=== PATIENT | male | born 1990 | race Caucasian/White ===

== ENCOUNTER 2021-02-05 11:17 | Outpatient (REF) | payer OTHER, SELFPAY ==
[2021-02-05 14:54] LABS: Alanine Aminotransferase 34 U/L (0-40); Albumin Level 4.5 g/dL (3.5-5.0); Alkaline Phosphatase 56 U/L (39-117); Anion Gap 12 (12-20); Aspartate Amino Transferase 27 U/L (5-37); Bilirubin Total 0.5 mg/dL (0.0-1.0); Blood Urea Nitrogen 12 mg/dL (9-16); Calcium 9.6 mg/dL (8.4-10.2); Carbon Dioxide 27 mmol/L (22-29); Chloride 105 mmol/L (96-108); Cholesterol 157 mg/dL; Estimated Glomerular Filt Rate > 60; Glucose Fasting 88 mg/dL (60-99); HDL Cholesterol 55 mg/dL; LDL Cholesterol Calculated 89 mg/dl; Potassium 3.7 mmol/L (3.3-5.1); Sodium 140 mmol/L (135-145); Total Protein 7.2 g/dL (6.5-8.0); Triglycerides 68 mg/dL
[2021-02-05 15:16] LABS: TSH reflex Free T4 0.91 uIU/mL (0.32-4.0)
== END 2021-02-05 11:18 | disposition home or self-care (01) ==
LOC: HO.HMGCLDS 11:17
PROVIDERS: PCP Nurse Practitioner Family; Visit Provider Nurse Practitioner Family
DX: Z00.00 Encounter for general adult medical examination without abnormal findings (principal)
CPT/HCPCS: 36415; 80053; 80061; 84443

== ENCOUNTER 2021-11-10 14:26 | Outpatient (REF) | payer OTHER, SELFPAY ==
[2021-11-10 17:13] LABS: Hematocrit 46.2 % (42.0-52.0); Mean Corpuscular HGB Conc 32.5 g/dl (31.0-36.0); Mean Corpuscular Hemoglobin 27.6 pg (27.0-33.0); Mean Corpuscular Volume 85.1 fL (80.0-98.0); Mean Platelet Volume 10.2 fL (9.4-12.4); Platelet Count 282 X10*3/uL (160-400); Red Blood Count 5.43 X10*6/uL (4.60-5.80); Red Cell Distribution Width 13.1 % (11.0-16.0); White Blood Count 3.8 X10*3/uL (4.8-10.8)
[2021-11-10 17:37] LABS: C Reactive Protein 0.04 mg/dL (< or = 0.50)
[2021-11-10 18:00] LABS: Erythrocyte Sedimentation Rate 1 MM/HR (0-15)
== END 2021-11-10 14:27 | disposition home or self-care (01) ==
LOC: HO.LAB 14:26
PROVIDERS: PCP Nurse Practitioner Family; Referring Provider Nurse Practitioner Family; Visit Provider Internal Medicine Cardiovascular Disease
DX: R07.89 Other chest pain (principal); R94.31 Abnormal electrocardiogram [ECG] [EKG]
CPT/HCPCS: 36415; 85027; 85652; 86140; 93005; 99202

== ENCOUNTER → 2021-11-18 09:06 | Outpatient (REF) | payer OTHER, SELFPAY ==
--- NOTE | ~2021-11-18 | NM_ITS ---
Exercise Myocardial perfusion study Indication: Chest pain to evaluate for myocardial ischemia Technique: The patient was brought in for an exercise perfusion study on 11/18/2021. Patient performed exercise as per Alexei protocol and was injected 25 mCi of sestamibi was given intravenously one target HR was achieved. Images were obtained using the SPECT gamma camera interlaced with the gating device. Images were obtained in supine position. Resting perfusion study was performed on 11/19/2021. Patient was administered 25 mCi of sestamibi intravenously at rest. Images were then obtained in supine position. Images obtained with and without CT attenuation. Total DLP 75 mGy-cm. Images were processed with the software and compared side to side in short axis, horizontal long axis and vertical long axis views. Findings: The stress perfusion study showed both non attenuated attenuated corrected images show normal uptake of the cardiac. The gated study shows normal LV systolic function with calculated LVEF of 64%. LV cavity is normal in size. The gated study shows normal systolic wall thickening and contraction of all segments. There is no transient ischemic dilation. Resting study shows non attenuated images show normal uptake of radiotracer in all segments of LV myocardium. Gating at rest reveals normal systolic wall motion with visually estimated ejection fraction at greater than 60 %. The findings are consistent with normal myocardial perfusion. NM/NM cardiolite stress test Impression: 1. Normal myocardial perfusion 2. Gated LVEF is 60 3. Transient ischemic dilatation not present Stress EKG is equivocal for ischemia
--- NOTE | 2021-11-18 09:09 | CA_ITS ---
Acquisition Time: 2021-11-18 10:11:36 Total Exercise Time: 00:12:01 Test Indications: Chest Pain Medications: IRBASARTAN Protocol: RIKKI Max HR: 184 BPM 97% of Pred: 189 BPM Max BP: 160/098 mmHG Max Work Load: 13.4 METS Exercise stress test with exercise 12 min 1 sec of Rikki protocol, with 1/10 left chest pressure, like a bubble in my chest , without arrythmia, with normotensive response to exercise, with baseline EKG showing T wave inversions inferiorly and V4-V6 - then at peak exercise there is [address] depression leads III, AVF and 0.5mm depression in V6 which improves quickly in recovery and shows upright T waves. Then at 6 min recovery there are T wave inversions again noted inferiorly, V4-V6 which continue until test ended.: nondiagnostic for ischemia due to baseline abnormality. His chest pressure remained at 1/10 during recovery. Nuclear images pending. Test reviewed with Dr Blair Referred By: Puneet Parker Overread By: DAVID BENÍTEZ
== END ==
LOC: HO.CARD 09:06
PROVIDERS: PCP Nurse Practitioner Family; Visit Provider Internal Medicine Cardiovascular Disease
DX: R07.89 Other chest pain (principal); R94.31 Abnormal electrocardiogram [ECG] [EKG]
CPT/HCPCS: 78452; 93017; A9500

== ENCOUNTER → 2021-11-26 14:49 | Outpatient (REF) | payer OTHER, SELFPAY ==
--- NOTE | 2021-11-26 14:52 | CA_ITS ---
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 The visually estimated ejection fraction is between 55-60%. Diastolic function is normal for age. Right Ventricle Normal right ventricular cavity size and systolic function. Atria Both atria are normal in size. Color Doppler suggestive of presence of PFO. Aortic Valve Normal aortic valve structure and function. There is no aortic valve stenosis. There is no aortic valve regurgitation. Mitral Valve Normal mitral valve structure and function. There is trace mitral valve regurgitation. There is no mitral valve stenosis. Pulmonic Valve The pulmonic valve was not well visualized. Tricuspid Valve Likely normal tricuspid valve structure and function. There is trace tricuspid valve regurgitation. The right ventricular systolic pressure is normal. The right ventricular systolic pressure is 16 mmHg. Normal right atrial pressure. There is no evidence of pulmonary hypertension. Great Vessels All visible segments of the aorta are normal in size. The pulmonary artery was not well visualized. Venous The inferior vena cava is normal in size and collapses greater than 50% with inspiration. Pericardium/Pleural There is no evidence of pericardial effusion. Prior Study Comparison No prior study available for comparison. Recommendations, Care & Conclusions Recommend contrast study to evaluate intracardiac shunting. Measurements 2D Linear Measurements IVSd: 0.90 0.6-0.9/0.6-1.0 cm LVIDd: 4.96 3.9-5.3/4.2-5.9 cm LVIDd Index: 2.49 2.4-3.2/2.2-3.1 cm/m2 LVIDs: 2.77 2.0-3.6 cm LVPWd: 1.07 0.7-1.1 cm LA Diam: 3.10 2.7-3.8/3.0-4.0 cm LAIDs Index: 1.56 1.5-2.3 cm/m2 LV Mass: 219.82 67-162/88-224 g LV Mass Index: 110.46 43-95/49-115 g/m2 LVOT Diam: 2.20 3.0+(-)1.3 cm 2D Systolic Function EF 4C: 53.00 >55% EF 2C: 66.70 >55% EF BiP: 57.80 >55% Mitral Valve MV Pk E: 0.55 MV PK A: 0.42 MV Decel Time: 201.00 E/A: 1.30 E'Lateral: 10.10 E'Medial: 6.96 E/E' Med: 7.80 E/E' Lat: 5.40 PHT: 59.00 MVA PHT: 3.73 Decel [place]helps: 2.70 Aortic Valve AoV Pk Malachi: 1.31 AoV Mn Malachi: 0.95 AoV VTI: 0.25 AoV Pk Grad: 7.00 Aov Mn Grad: 4.00 ARCHANA Cont.VTI: 2.70 LVOT LVOT Pk Malachi: 0.90 LVOT Mn Malachi: 0.56 LVOT VTI: 0.18 LVOT Pk Grad: 3.00 LVOT Mn Grad: 2.00 LVOT Diam: 2.20 LVOT Area: 3.80 Diastolic Function MV Pk E: 0.55 MV Pk A: 0.42 E/A: 1.30 E'Medial: 6.96 E/E' Med: 7.80 E' Laterial: 10.10 E/E' Lat: 5.40 Right Ventricle TAPSE (mm): 21.30 TVS' Malachi: 11.30 Tricuspid Valve TR Pk Malachi: 1.83 TR Pk Grad: 13.00 RA Press: 3.00 RVSP: 16.00 Great Vessels Aorta Sinus of Valsalva: 3.72 2.0-3.[address] Ridge: 3.14 1.7-3.4 cm Ao Asc: 3.20 2.1-3.4 cm Ao Arch: 3.30 Pulmonary Valve PV Pk Malachi: 0.96 Peak PV Grad: 4.00 Updated in Other Vendor System with Status of Final Puneet Parker MD electronically signed on 11/27/2021 11:19:26 AM with status of Final
== END ==
LOC: HO.CARD 14:49
PROVIDERS: PCP Nurse Practitioner Family; Visit Provider Internal Medicine Cardiovascular Disease
DX: R94.31 Abnormal electrocardiogram [ECG] [EKG] (principal); R07.89 Other chest pain; I10 Essential (primary) hypertension
CPT/HCPCS: 93306

== ENCOUNTER → 2021-12-08 14:05 | Outpatient (BNVA) | payer OTHER, SELFPAY | PROVIDERS: PCP Nurse Practitioner Family; Referring Provider Nurse Practitioner Family; Visit Provider Nurse Practitioner Family | DX: Z01.810 Encounter for preprocedural cardiovascular examination (principal); Q21.1 Atrial septal defect; R94.31 Abnormal electrocardiogram [ECG] [EKG]; R07.89 Other chest pain | CPT/HCPCS: 99212 ==

== ENCOUNTER 2022-11-23 11:03 | Outpatient (REF) | payer OTHER, SELFPAY ==
[2022-11-23 13:41] LABS: MANUAL DIFF FLAG NO
[2022-11-23 13:50] LABS: Basophils Percent Auto 0.7 % (0-2); Eosinophils Absolute Auto 0.4 X10*3/uL (0.0-0.4); Eosinophils Percent Auto 8.6 % (0-4); Hematocrit 45.4 % (42.0-52.0); Hemoglobin 15.1 g/dl (14.0-18.0); Imm Gran Abs Auto 0.01 X10*3/uL (0.00-0.03); Imm Gran Pct Auto 0.2 % (0.0-0.4); Lymphocytes Absolute Auto 1.7 X10*3/uL (1.2-4.9); Lymphocytes Percent Auto 40.7 % (20-40); Mean Corpuscular HGB Conc 33.3 g/dl (31.0-36.0); Mean Corpuscular Hemoglobin 27.7 pg (27.0-33.0); Mean Corpuscular Volume 83.3 fL (80.0-98.0); Mean Platelet Volume 10.5 fL (9.4-12.4); Monocytes Absolute Auto 0.3 X10*3/uL (0.1-1.2); Monocytes Percent Auto 6.7 % (2-11); Neutrophils Absolute Auto 1.7 x10*3/uL (2.0-8.3); Neutrophils Percent Auto 43.1 % (45-73); Platelet Count 286 X10*3/uL (160-400); Red Blood Count 5.45 X10*6/uL (4.60-5.80); White Blood Count 4.1 X10*3/uL (4.8-10.8)
[2022-11-23 14:01] LABS: Appearance Urine Clear; Color Urine Yellow; Glucose Urine UA Negative (Negative); Leukocyte Esterase Urine Negative (Negative); Nitrite Urine Negative (Negative); PH 6.5 (5.0-9.0); Specific Gravity - Urine >= 1.030 (1.005-1.025); Urine Blood Negative (Negative); Urine Ketones Trace mg/dL (Negative); Urine Protein Negative (Neg-Trace)
[2022-11-23 14:17] LABS: Alanine Aminotransferase 38 U/L (0-40); Albumin Level 4.5 g/dL (3.5-5.0); Alkaline Phosphatase 53 U/L (39-117); Anion Gap 10 (12-20); Aspartate Amino Transferase 32 U/L (5-37); Bilirubin Total 0.5 mg/dL (0.0-1.0); Blood Urea Nitrogen 12 mg/dL (9-16); Calcium 9.5 mg/dL (8.4-10.2); Carbon Dioxide 27 mmol/L (22-29); Chloride 105 mmol/L (96-108); Cholesterol 167 mg/dL; Estimated Glomerular Filt Rate > 60; Glucose Fasting 80 mg/dL (60-99); HDL Cholesterol 38 mg/dL; LDL Cholesterol Calculated 88 mg/dl; Potassium 4.1 mmol/L (3.3-5.1); Sodium 138 mmol/L (135-145); Total Protein 7.2 g/dL (6.5-8.0); Triglycerides 208 mg/dL
[2022-11-23 14:35] LABS: TSH reflex Free T4 1.67 uIU/mL (0.32-4.0)
== END 2022-11-23 11:04 | disposition home or self-care (01) ==
LOC: HO.HMGCLDS 11:03
PROVIDERS: PCP Nurse Practitioner Family; Visit Provider Nurse Practitioner Family
DX: Z00.00 Encounter for general adult medical examination without abnormal findings (principal)
CPT/HCPCS: 36415; 80053; 80061; 81003; 84443; 85025

== ENCOUNTER → 2022-12-15 12:24 | Outpatient (BNVA) | payer OTHER, SELFPAY | PROVIDERS: PCP Nurse Practitioner Family; Referring Provider Nurse Practitioner Family; Visit Provider Internal Medicine Cardiovascular Disease | DX: I10 Essential (primary) hypertension (principal); R07.89 Other chest pain; U07.0 Vaping-related disorder | CPT/HCPCS: 93005; 99212 ==

== ENCOUNTER → 2022-12-27 14:55 | Outpatient (REF) | payer OTHER, SELFPAY ==
--- NOTE | 2022-12-27 14:57 | CA_ITS ---
Transthoracic Echocardiogram Patient (Last, First, Middle): Brad Ozuna, Gender: Male Date of : 1990 Age: 32 Procedure Date: 12/27/2022 Procedure Type: Transthoracic Echocardiogram Location: OP Height: 182.88 cm Weight: 76.66 kg BSA: 1.98 m2 Heart Rate: bpm BP: 138 / 82 mmHg [facility]: TO Referring MD: Puneet Parker MD Marketing Director Assisted Living: Puneet Parker MD Symptoms: I10 - Essential (primary) hypertension Study Quality: Good ECG Rhythm: Sinus Conclusions: - 1. Normal LV ejection fraction of 60 65% with normal filling pattern 2. Normal cardiac valvular Dopplers 3. Normal RV systolic pressure 4. No gross pericardial effusion Findings Left Ventricle Normal left ventricular size, thickness, and systolic function. The visually estimated ejection fraction is between 60-65%. Spectral Doppler is indicative of a normal filling pattern. Right Ventricle Normal right ventricular cavity size and systolic function. Atria The left atrium is likely dilated. Interatrial shunt cannot be excluded. The right atrium is normal in size. Aortic Valve Normal aortic valve structure and function. There is no aortic valve stenosis. There is no aortic valve regurgitation. Mitral Valve Normal mitral valve structure and function. There is trace mitral valve regurgitation. There is no mitral valve stenosis. Pulmonic Valve The pulmonic valve is likely normal. There is trace to mild pulmonic valve regurgitation. Tricuspid Valve Normal tricuspid valve structure. There is trace tricuspid valve regurgitation. The right ventricular systolic pressure is normal. The right ventricular systolic pressure is 21 mmHg. Normal right atrial pressure. There is no evidence of pulmonary hypertension. Great Vessels All visible segments of the aorta are normal in size. The pulmonary artery was not well visualized. Venous The inferior vena cava is normal in size and collapses greater than 50% with inspiration. Pericardium/Pleural There is no evidence of pericardial effusion. Prior Study Comparison No significant change compared to prior study dated: 11/26/2021. Recommendations, Care & Conclusions Recommend contrast study to evaluate intracardiac shunting. Measurements 2D Linear Measurements IVSd: 1.19 0.6-0.9/0.6-1.0 cm LVIDd: 4.87 3.9-5.3/4.2-5.9 cm LVIDd Index: 2.46 2.4-3.2/2.2-3.1 cm/m2 LVIDs: 3.13 2.0-3.6 cm LVPWd: 0.95 0.7-1.1 cm LA Diam: 2.70 2.7-3.8/3.0-4.0 cm LAIDs Index: 1.36 1.5-2.3 cm/m2 LV Mass: 238.74 67-162/88-224 g LV Mass Index: 120.58 43-95/49-115 g/m2 LVOT Diam: 2.30 3.0+(-)1.3 cm 2D Systolic Function EF 4C: 55.70 >55% EF 2C: 64.10 >55% EF BiP: 60.00 >55% Mitral Valve MV Pk E: 0.50 MV PK A: 0.37 MV Decel Time: 167.00 E/A: 1.40 E'Lateral: 8.92 E'Medial: 6.96 E/E' Med: 7.10 E/E' Lat: 5.60 PHT: 49.00 MVA PHT: 4.49 Decel [place]: 2.97 Aortic Valve AoV Pk Malachi: 1.29 AoV Mn Malachi: 0.93 AoV VTI: 0.24 AoV Pk Grad: 7.00 Aov Mn Grad: 4.00 ARCHANA Cont.VTI: 3.18 LVOT LVOT Pk Malachi: 0.99 LVOT Mn Malachi: 0.63 LVOT VTI: 0.18 LVOT Pk Grad: 4.00 LVOT Mn Grad: 2.00 LVOT Diam: 2.30 LVOT Area: 4.15 Diastolic Function MV Pk E: 0.50 MV Pk A: 0.37 E/A: 1.40 E'Medial: 6.96 E/E' Med: 7.10 E' Laterial: 8.92 E/E' Lat: 5.60 Right Ventricle TAPSE (mm): 19.90 TVS' Malachi: 11.50 Tricuspid Valve TR Pk Malachi: 2.10 TR Pk Grad: 18.00 RA Press: 3.00 RVSP: 21.00 Great Vessels Aorta Sinus of Valsalva: 3.73 2.0-3.[address] Ridge: 3.08 1.7-3.4 cm Ao Asc: 3.40 2.1-3.4 cm Updated in Other Vendor System with Status of Final Puneet Parker MD electronically signed on 12/28/2022 2:50:57 PM with status of Final
== END ==
LOC: HO.CARD 14:55
PROVIDERS: PCP Nurse Practitioner Family; Visit Provider Internal Medicine Cardiovascular Disease
DX: I10 Essential (primary) hypertension (principal)
CPT/HCPCS: 93306

== ENCOUNTER 2023-01-12 08:45 | Outpatient (REF) | payer OTHER, SELFPAY ==
[2023-01-12 09:20] LABS: MANUAL DIFF FLAG NO
[2023-01-12 09:27] LABS: Basophils Percent Auto 0.4 % (0-2); Eosinophils Absolute Auto 0.4 X10*3/uL (0.0-0.4); Eosinophils Percent Auto 7.1 % (0-4); Hematocrit 50.2 % (42.0-52.0); Hemoglobin 16.5 g/dl (14.0-18.0); Imm Gran Abs Auto 0.02 X10*3/uL (0.00-0.03); Imm Gran Pct Auto 0.4 % (0.0-0.4); Lymphocytes Absolute Auto 1.5 X10*3/uL (1.2-4.9); Mean Corpuscular HGB Conc 32.9 g/dl (31.0-36.0); Mean Corpuscular Hemoglobin 28.1 pg (27.0-33.0); Mean Corpuscular Volume 85.5 fL (80.0-98.0); Mean Platelet Volume 9.6 fL (9.4-12.4); Monocytes Absolute Auto 0.4 X10*3/uL (0.1-1.2); Monocytes Percent Auto 7.1 % (2-11); Neutrophils Absolute Auto 3.3 x10*3/uL (2.0-8.3); Platelet Count 288 X10*3/uL (160-400); Red Blood Count 5.87 X10*6/uL (4.60-5.80); White Blood Count 5.6 X10*3/uL (4.8-10.8)
[2023-01-12 10:11] LABS: Anion Gap 13 (12-20); Blood Urea Nitrogen 11 mg/dL (9-16); Carbon Dioxide 25 mmol/L (22-29); Chloride 104 mmol/L (96-108); Estimated Glomerular Filt Rate > 60; Glucose Random 98 mg/dL (60-115); Potassium 4.3 mmol/L (3.3-5.1); Sodium 138 mmol/L (135-145)
== END 2023-01-12 08:46 | disposition home or self-care (01) ==
LOC: HO.LAB 08:45
PROVIDERS: PCP Nurse Practitioner Family; Referring Provider Nurse Practitioner Family; Visit Provider Internal Medicine Cardiovascular Disease
DX: D72.819 Decreased white blood cell count, unspecified (principal); I10 Essential (primary) hypertension
CPT/HCPCS: 36415; 80048; 85025

== ENCOUNTER 2023-04-06 10:38 | Outpatient (AMB) | payer OTHER, SELFPAY ==
[2023-04-06 10:41] VITALS: BP 114/72; PULSE 75; BMI 23.9
--- NOTE | 2023-04-06 10:41 | MHC.OFFVIS ---
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 He has been feeling well. Blood pressure is now much better control on current irbesartan dose. His drinking adequate amount fluid. He has stop measuring his blood pressure regularly. He is trying to be careful about salt intake. Denies any chest pain. Denies lightheadedness, syncope. No heart failure symptoms. [facility] Medical History Lumbar back pain with radiculopathy affecting lower extremity Nerve root compression Family History Father No problems noted. Mother No problems noted. Paternal Grandmother Cancer Heart attack Social History [facility] Alcohol intake: current Alcohol intake frequency: holidays/special occasions only Patient Tobacco Use Status: Former Tobacco user Years Smoked: quit 2 weeks ago e-Cigarette/Vaping Use: Currently Using Second Hand Smoke Exposure: No service: Yes Current occupational status: employed Current occupation: [employer] Current occupational exposures/hazards: Yes Review of Systems Const Denies chills, Denies fatigue, Denies fever(s), Denies frequent falls, Denies weakness, Denies weight gain and Denies weight loss ENT Denies dizziness Card Denies chest pain, Denies leg edema, Denies lightheadedness, Denies palpitations, Denies dyspnea, Denies dyspnea on exertion, Denies orthopnea and Denies other (loss of consciousness) Resp Denies cough, Denies dyspnea and Denies dyspnea on exertion GI Denies hematochezia and Denies change in stool character Musc Denies abnormal gait, Denies muscle weakness, Denies numbness, Denies radiating pain into limb and Denies tingling Neuro Denies abnormal gait, Denies dizziness, Denies frequent falls, Denies numbness, Denies tingling and Denies weakness Endo Denies fatigue and Denies palpitations Physical Exam Vital Signs: Last Vital Signs Pulse 75 04/06/23 10:41 BP 114/72 04/06/23 10:41 BMI result Body Mass Index 23.9 Const General: cooperative, healthy appearing, no acute distress, alert and awake Orientation/consciousness: patient oriented x3 Neck Neck: Yes normal visual inspection and Yes no JVD Resp Effort & Inspection: normal respiratory effort, able to speak in complete sentences and not labored Auscultation: clear to auscultation bilaterally, no crackles, no rales, no rhonchi and no wheezes Cardio Rate: regular rate Rhythm: regular rhythm Heart sounds: S1 normal heart sound present and S2 normal heart sound present Peripheral pulses: Peripheral pulses 2+ throughout GI Inspection: Yes normal to inspection Neuro General: patient oriented x3 Extrem General: Yes normal to inspection and No edema Assessment & Plan Assessment & Plan (1) Hypertension: Code(s): I10 - Essential (primary) hypertension Plan: Hypertension which is currently well optimized. Continue aggressive control blood pressure. Target goal blood pressure less than 120 systolic. Continue irbesartan therapy. Advised to watch salt in his diet. Maintain adequate fluid intake. Intermittent monitoring of blood pressure at home was discussed. Continue participate in physical activity as tolerated. Possibility of PFO but without any prior embolic events. No specific therapy required for the same. Will follow up in the clinic if need be. Thank you for allowing me to partake in his care Coding Level of Care Code Est Pt Level 3 (06263) Diagnoses Hypertension I10
== END 2023-04-06 11:22 | disposition home or self-care (01) ==
PROVIDERS: Visit Provider Internal Medicine Cardiovascular Disease
DX: I10 Essential (primary) hypertension (principal)
CPT/HCPCS: 99213

== ENCOUNTER → 2023-04-06 10:38 | Outpatient (BNVA) | payer OTHER, SELFPAY | PROVIDERS: Visit Provider Internal Medicine Cardiovascular Disease | DX: I10 Essential (primary) hypertension (principal) | CPT/HCPCS: 99212 ==

== ENCOUNTER 2023-05-10 08:29 | Outpatient (AMB) | payer OTHER, SELFPAY ==
--- NOTE | 2023-05-10 08:41 | MHC.PC.OV ---
Vital Signs 05/10/23 08:42 Height 6 ft Weight 180 lb 2 oz BMI 24.4 BP 118/76 Blood Pressure Location Rt brachial Position Sitting Pulse 72 Pulse Source Pulse Oximeter Pulse Oximetry (%) 98 Oxygen Delivery Method Room Air Intake Visit Reasons: 6 month follow up Allergies No Known Allergies Allergy (Verified 05/10/23 08:47) Medication List - Last Reconciled 05/10/23 by MACK Wilson dexamethasone 4 mg PO DAILY 9 days irbesartan 150 mg PO DAILY Tobacco use date assessed: 05/10/23 Dental Screening Dental Screen Date: 05/10/23 Did you have a dental visit in the last 12 months?: Yes Did you have a dental problem in the last 6 months where you did not have access to dental care?: No Was dental information given to patient?: Patient has dentist HPI 6 month follow up HPI Details Pt underwent a microdiscectomy of the left L5-S1 on 01/05/22. He reports recently helping someone lift a motorcycle into the back of a truck and felt a twinge in his left lower back. Pt reports significant discomfort (mostly left lower back) without radicular symptoms. He has been taking tylenol which helps minimally. Pt has also been stretch which has provided some relief but not total relief. Will order xr and send dexamethasone. Denies any signs of cauda equina. [facility], [facility] Medical History Lumbar back pain with radiculopathy affecting lower extremity Nerve root compression Family History Father No problems noted. Mother No problems noted. Paternal Grandmother Cancer Heart attack Social History Housing: Condominium Alcohol intake: current Alcohol intake frequency: holidays/special occasions only Patient Tobacco Use Status: Former Tobacco user Years Smoked: quit 2 weeks ago e-Cigarette/Vaping Use: Currently Using Second Hand Smoke Exposure: No service: Yes Current occupational status: employed Current occupation: [employer] Current occupational exposures/hazards: Yes Cognitive needs: No Hearing needs: No Vision needs: No Questionnaire Thrive Questionnaire Date Thrive assessed: 11/10/22 VERONICA-7 AMB Questionnaire VERONICA-7 Date VERONICA - 7 assessed: 11/10/22 Source: Developed by Drs. Nacho Briggs, Catrachita Hilliard, Donn Stern and colleagues, with an educational jasen from [employer]. Review of Systems Const Reports as per HPI Physical exam (Primary Care) Vital Signs: Last Vital Signs Pulse 72 05/10/23 08:42 BP 118/76 05/10/23 08:42 Pulse Ox 98 05/10/23 08:42 Oxygen Delivery Method Room Air 05/10/23 08:42 BMI result Body Mass Index 24.4 Tobacco/Smoking Status: Tobacco use Status Tobacco use date assessed 05/10/23 05/10/23 08:49 Patient Tobacco Use Status Former Tobacco user 05/10/23 08:49 e-Cigarette/Vaping Use Currently Using 05/10/23 08:49 Thrive Assessment: Date of Thrive Assessment Date Thrive assessed 11/10/22 05/10/23 08:49 Const General: cooperative Orientation/consciousness: patient oriented x3 Resp Effort & Inspection: normal respiratory effort Auscultation: clear to auscultation bilaterally Cardio Rate: regular rate Rhythm: regular rhythm Heart sounds: S1 normal heart sound present and S2 normal heart sound present Back/Spine/Pelvis Other: lower transverse back pain exacerbated with LLE raises, no pain with palpation, no pain with heel and toe walking Neuro General: patient oriented x3 Psych Appearance: grossly normal Mental Status: mental status grossly normal Speech and movement: Normal speech and movement present Affect: normal affect Attitude: cooperative Thought process: Normal thought process present Thought content: Normal thought content present Insight: Good insight present (Psych) Judgement: Good judgement present (Psych) Assessment and Plan Assessment & Plan (1) S/P lumbar microdiscectomy: Comment: microdiscectomy L5-S1 (01/05/2022) Code(s): Z98.890 - Other specified postprocedural states Plan: XR ordered, dexamethasone sent (2) Lower back pain: Code(s): M54.50 - Low back pain, unspecified Plan: XR ordered, dexamethasone sent Plan The patient agreed to the use of a medical assistant prn for this encounter. Scribed for MACK Mancilla by michelle Azar scribe, on 05/10/2023 at 08:55 EST. Orders: Orders XR lumbar spine 2-3V Today M54.50 - Low back pain, unspecified, Z98.890 - Other specified postprocedural states Medications: New dexamethasone 3 times a day for 3 days, twice a day for 3 days, daily for 3 days. 4 mg PO DAILY 18 tabs 0RF 9 days Coding Level of Care Code Est Pt Level 3 (51806) Diagnoses S/P lumbar microdiscectomy Z98.890 Lower back pain M54.50
[2023-05-10 08:42] VITALS: BP 118/76; PULSE 72; O2SAT 98; BMI 24.4
== END 2023-05-10 09:23 | disposition home or self-care (01) ==
PROVIDERS: PCP Nurse Practitioner Family; Visit Provider Nurse Practitioner Family
DX: Z98.890 Other specified postprocedural states (principal); M54.50 Low back pain, unspecified
CPT/HCPCS: 99213

== ENCOUNTER 2023-05-10 09:07 | Outpatient (REF) | payer OTHER, SELFPAY ==
--- NOTE | ~2023-05-10 | XR_ITS ---
EXAMINATION: XR LUMBOSACRAL SPINE CLINICAL INFORMATION: No trauma. Follow up post-procedure. COMPARISON: None available. TECHNIQUE: AP, lateral, and both oblique views of the lumbosacral spine. FINDINGS: Vertebral body heights are normal. At L5-S1, there is a 3 mm retrolisthesis. The remaining disc spaces are well maintained. No acute fracture or spondylolisthesis is seen. The posterior elements are intact. The paravertebral soft tissues are unremarkable. XR/XR lumbar spine 2-3V IMPRESSION: At L5-S1, there is mild degenerative disc disease.
== END 2023-05-10 09:08 | disposition home or self-care (01) ==
LOC: HO.HMGCX 09:07
PROVIDERS: PCP Nurse Practitioner Family; Visit Provider Nurse Practitioner Family
DX: M54.50 Low back pain, unspecified (principal); Z79.899 Other long term (current) drug therapy
CPT/HCPCS: 72100

== ENCOUNTER 2023-08-30 08:07 | Outpatient (AMB) | payer OTHER, SELFPAY ==
[2023-08-30 08:55] VITALS: BP 160/90; PULSE 71; TEMP 36.1; O2SAT 99; BMI 25.0
--- NOTE | 2023-08-30 08:55 | AM.OFFWIN_ITS ---
Intake Vital Signs 08/30/23 08:55 Height 6 ft Weight 184 lb BMI 25.0 BP 160/90 H Blood Pressure Location Lt brachial Position Sitting Pulse 71 Pulse Source Pulse Oximeter Temp 97.0 F Temp Source Temporal Artery Scan Pulse Oximetry (%) 99 Oxygen Delivery Method Room Air Intake Visit Reasons: EP, sore throat, cough ([phone]) Intake Note: pt is here today for sore throat,cough started monday Patient Tobacco Use Status: Former Tobacco user Allergies No Known Allergies Allergy (Verified 08/30/23 09:07) Medication List - Last Reconciled 08/30/23 by [facility] dexamethasone 4 mg PO DAILY 9 days irbesartan 150 mg PO DAILY Do you need a note to return to daycare/school/sports/work: Yes HPI HPI Comments History of Present Illness Details Sore throat, started on monday. worse since onset. painful swallowing tried otc meds w/o relief no known sick contacts UTD on vaccines Denies any other constitutional sx. [facility] Medical History Lumbar back pain with radiculopathy affecting lower extremity Nerve root compression Family History Father No problems noted. Mother No problems noted. Paternal Grandmother Cancer Heart attack Social History Housing: Condominium Alcohol intake: current Alcohol intake frequency: holidays/special occasions only Patient Tobacco Use Status: Former Tobacco user Cigarette Packs Per Day: 0.25 Years Smoked: quit 2 weeks ago e-Cigarette/Vaping Use: Currently Using Second Hand Smoke Exposure: No service: Yes Current occupational status: employed Current occupation: [employer] Current occupational exposures/hazards: Yes Cognitive needs: No Hearing needs: No Vision needs: No Review of Systems Const All systems reviewed & are unremarkable except as noted in HPI and below Physical Exam Vital Signs: Last Vital Signs Temp 97.0 F 08/30/23 08:55 Pulse 71 08/30/23 08:55 BP 160/90 H 08/30/23 08:55 Pulse Ox 99 08/30/23 08:55 Oxygen Delivery Method Room Air 08/30/23 08:55 BMI result Body Mass Index 25.0 Const Other: awake alert mildly ill appearing NAD TM intact, clear bilat Nares patent, sinuses nontender Pharynx hard to appreciate, from what i can see, diffuse erythema. Managing secretions + ac adenopathy bilat LS CTAB Results AMB Rapid Strep AMB Rapid Strep Negative Last Edit by Reginaldo Lai CMA on 08/30/23 09 :34 Assessment & Plan Assessment & Plan (1) Strep pharyngitis: Code(s): J02.0 - Streptococcal pharyngitis Plan: despite negative rapid, will tx based on clinical presentation and findings Orders: Orders AMB Rapid Strep Screen Today Z13.9 - Encounter for screening, unspecified Medications: New amoxicillin-pot clavulanate 875-125 mg 1 tab PO BID 7 days 14 tabs 0RF Coding Level of Care Code Est Pt Level 3 (38809) Diagnoses Strep pharyngitis J02.0
== END 2023-08-30 09:15 | disposition home or self-care (01) ==
PROVIDERS: PCP Nurse Practitioner Family; Visit Provider Nurse Practitioner Family
DX: J02.9 Acute pharyngitis, unspecified (principal); J02.0 Streptococcal pharyngitis
CPT/HCPCS: 87880; 99213

== ENCOUNTER 2023-12-14 11:20 | Outpatient (AMB) | payer OTHER, SELFPAY ==
[2023-12-14 11:30] VITALS: BP 118/72; PULSE 71; O2SAT 98; BMI 24.0
--- NOTE | 2023-12-14 11:30 | A.OFFPC_ITS ---
Vital Signs 12/14/23 11:30 Height 6 ft Weight 177 lb BMI 24.0 BP 118/72 Blood Pressure Location Lt brachial Position Sitting Pulse 71 Pulse Source Pulse Oximeter Pulse Oximetry (%) 98 Oxygen Delivery Method Room Air Intake Visit Reasons: Annual PE Intake Note: pt is here for annual exam Allergies No Known Allergies Allergy (Verified 12/14/23 11:30) Medication List - Last Reconciled 12/14/23 by MACK Wilson irbesartan 150 mg PO DAILY Tobacco use date assessed: 12/14/23 Dental Screening Dental Screen Date: 12/14/23 Did you have a dental visit in the last 12 months?: Yes Did you have a dental problem in the last 6 months where you did not have access to dental care?: No Was dental information given to patient?: Patient has dentist HPI Annual PE HPI Details Pt is here for a PE. Will order labs. [facility], [facility] Medical History Nerve root compression Lumbar back pain with radiculopathy affecting lower extremity Surgical History No pertinent past surgical history Family History Father No problems noted. Mother No problems noted. Paternal Grandmother Cancer Heart attack Social History Housing: Condominium Alcohol intake: current Alcohol intake frequency: holidays/special occasions only Patient Tobacco Use Status: Former Tobacco user Cigarette Packs Per Day: 0.25 Years Smoked: quit 2 weeks ago e-Cigarette/Vaping Use: Currently Using Second Hand Smoke Exposure: No service: Yes Current occupational status: employed Current occupation: [employer] Current occupational exposures/hazards: Yes Cognitive needs: No Hearing needs: No Vision needs: No Questionnaire PHQ-9 Over the last 2 weeks, how often have you been bothered by any of the following problems? 1. Little interest or pleasure in doing things: not at all 2. Feeling down, depressed, or hopeless: not at all 3. Trouble falling or staying asleep, or sleeping too much: not at all 4. Feeling tired or having little energy: nearly every day 5. Poor appetite or overeating: not at all 6. Feeling bad about yourself - or that you are a failure or have let yourself or your family down: not at all 7. Trouble concentrating on things, such as reading the newspaper or watching television: not at all 8. Moving or speaking so slowly that other people could have noticed. Or the opposite - being so fidgety or restless that you have been moving around a lot more than usual: not at all 9. Thoughts that you would be better off or of hurting yourself in some way: not at all Total score: 3 Depression Screening Interpretation: Negative Depression Screening Done: Yes 02135 - PHQ-9 Billing: Yes Source: Developed by Drs. Nacho Briggs, Catrachita Hilliard, Donn Stern and colleagues, with an educational jasen from [employer]. Thrive Questionnaire Date Thrive assessed: 11/10/22 I am a: Patient What is your living situation today?: I have a steady place to live Within the past 12 months, did the food you bought not last and you didn't have the money to get more?: Never true Within the past 12 months, did you worry whether your food would run out before you got money to buy more?: Never true THRIVE Score: 0 AUDIT C Alcohol Use Questionnaire (AUDIT-C) 1. How often do you have a drink containing alcohol?: Monthly or less 2. How many drinks containing alcohol do you have on a typical day when you are drinking?: 1 or 2 3. How often do you have six or more drinks on one occasion?: Never Total Score: 1 Score Reviewed/Action Taken: Yes VERONICA-7 AMB Questionnaire VERONICA-7 Date VERONICA - 7 assessed: 12/14/23 Feeling nervous, anxious, or on edge: 0 = Not at all Not being able to stop or control worryin = Not at all Worrying too much about different things: 0 = Not at all Trouble relaxin = Not at all Being so restless that it is hard to sit still: 0 = Not at all Becoming easily annoyed or irritable: 0 = Not at all Feeling afraid as if something awful might happen: 0 = Not at all Total VERONICA-7 score (0-4 normal; 5-9 mild; 10-14 moderate; 15-21 severe): 0 Source: Developed by Drs. Nacho Briggs, Catrachita Hilliard, Donn Stern and colleagues, with an educational jasen from [employer]. VERONICA-7 Assessment Billing VERONICA-7 Assessment Tool: VERONICA-7 Assessment 13333 Review of Systems Const Denies chills and Denies fever(s) Eyes Denies blurry vision ENT Denies vertigo, Denies dizziness and Denies sore throat Card Denies chest pain at rest, Denies chest pain with activity, Denies diaphoresis, Denies dyspnea and Denies dyspnea on exertion Resp Denies cough, Denies dyspnea, Denies dyspnea on exertion and Denies wheezing GI Denies abdominal pain, Denies melena, Denies hematochezia, Denies constipation, Denies diarrhea and Denies loose stools Denies hematuria Musc Denies numbness and Denies tingling Skin/Breast Denies lesions Neuro Denies vertigo, Denies dizziness, Denies numbness and Denies tingling Psych Denies anxiety, Denies depression, Denies homicidal ideation, Denies suicidal ideation and Denies other (substance abuse) Aller/Immun Denies wheezing Physical exam (Primary Care) Vital Signs: Last Vital Signs Pulse 71 12/14/23 11:30 BP 118/72 12/14/23 11:30 Pulse Ox 98 12/14/23 11:30 Oxygen Delivery Method Room Air 12/14/23 11:30 BMI result Body Mass Index 24.0 Tobacco/Smoking Status: Tobacco use Status Tobacco use date assessed 12/14/23 12/14/23 11:33 Patient Tobacco Use Status Former Tobacco user 12/14/23 11:33 e-Cigarette/Vaping Use Currently Using 12/14/23 11:33 PHQ-9: PHQ-9 Score PHQ-9: Total score 3 12/14/23 11:35 Depression Screening Interpretation: Negative Thrive Assessment: Date of Thrive Assessment Date Thrive assessed 11/10/22 12/14/23 11:33 Const General: cooperative Nutritional Appearance: well nourished Orientation/consciousness: patient oriented x3 HENMT Head: Yes normal to inspection, Yes normocephalic and Yes atraumatic Ears: TM's normal bilaterally Eyes General: appearance normal, both eyes and all related structures Alignment and Position: alignment normal and position normal Neck Neck: Yes normal visual inspection and Yes no lymphadenopathy Thyroid: Thyroid normal Resp Effort & Inspection: normal respiratory effort Auscultation: clear to auscultation bilaterally Cardio Rate: regular rate Rhythm: regular rhythm Heart sounds: S1 normal heart sound present, S2 normal heart sound present and no murmurs GI Palpation (GI): Soft to palpation and nontender Auscultation: normal bowel sounds Male General Exam: Yes normal external exam Penis: normal penis Scrotum: scrotum normal, testes descended bilaterally and no inguinal hernias Testes: no testicular mass Skin Rashes: no rashes Neuro General: patient oriented x3, moves all extremities, no focal motor deficits and deep tendon reflexes 2+ bilaterally Romberg Test: Negative Psych Appearance: grossly normal Mental Status: mental status grossly normal Speech and movement: Normal speech and movement present Affect: normal affect Attitude: cooperative Thought process: Normal thought process present Thought content: Normal thought content present Insight: Good insight present (Psych) Judgement: Good judgement present (Psych) Assessment and Plan Assessment & Plan (1) Physical exam: Code(s): Z00.00 - Encounter for general adult medical examination without abnormal findings Plan: Labs ordered Plan The patient agreed to the use of a medical assistant cardiology for this encounter. Scribed for MACK Mancilla by Xiomara Sandy medical assistant cardiology, on 12/14/2023 at 11:35 EST. Orders: Orders Complete Blood Count Auto Diff Today Z00.00 - Encounter for general adult medical examination without abnormal findings TSH reflex Free T4 Today Z00.00 - Encounter for general adult medical examination without abnormal findings UA CC w/rflx Micro + Cult Today Z00.00 - Encounter for general adult medical examination without abnormal findings Lipid Panel Today Z00.00 - Encounter for general adult medical examination without abnormal findings Comprehensive [place]. Panel Fast Today Z00.00 - Encounter for general adult medical examination without abnormal findings Coding Level of Care Code Est Pt Prev Care 18-39y(88692) Diagnoses Physical exam Z00.00 Additional Codes VERONICA-7 Assessment Billing - VERONICA-7 Assessment Tool: VERONICA-7 Assessment 60884 ([id number])
== END 2023-12-14 11:49 | disposition home or self-care (01) ==
PROVIDERS: PCP Nurse Practitioner Family; Visit Provider Nurse Practitioner Family
DX: Z00.00 Encounter for general adult medical examination without abnormal findings (principal)
CPT/HCPCS: 99395

== ENCOUNTER 2023-12-20 11:07 | Outpatient (REF) | payer OTHER, SELFPAY ==
[2023-12-20 13:26] LABS: MANUAL DIFF FLAG NO
[2023-12-20 13:50] LABS: Basophils Percent Auto 0.9 % (0-2); Eosinophils Absolute Auto 0.1 X10*3/uL (0.0-0.4); Eosinophils Percent Auto 3.9 % (0-4); Hematocrit 50.2 % (42.0-52.0); Hemoglobin 16.6 g/dl (14.0-18.0); Imm Gran Abs Auto 0.01 X10*3/uL (0.00-0.03); Imm Gran Pct Auto 0.3 % (0.0-0.4); Lymphocytes Absolute Auto 1.5 X10*3/uL (1.2-4.9); Lymphocytes Percent Auto 43.5 % (20-40); Mean Corpuscular HGB Conc 33.1 g/dl (31.0-36.0); Mean Corpuscular Hemoglobin 27.6 pg (27.0-33.0); Mean Corpuscular Volume 83.5 fL (80.0-98.0); Monocytes Absolute Auto 0.3 X10*3/uL (0.1-1.2); Monocytes Percent Auto 10.2 % (2-11); Neutrophils Absolute Auto 1.4 x10*3/uL (2.0-8.3); Neutrophils Percent Auto 41.2 % (45-73); Platelet Count 312 X10*3/uL (160-400); Red Blood Count 6.01 X10*6/uL (4.60-5.80); Red Cell Distribution Width 12.8 % (11.0-16.0); White Blood Count 3.3 X10*3/uL (4.8-10.8)
[2023-12-20 13:53] LABS: Appearance Urine Clear; Color Urine Yellow; Glucose Urine UA Negative (Negative); Leukocyte Esterase Urine Negative (Negative); Nitrite Urine Negative (Negative); PH >= 9.0 (5.0-9.0); Specific Gravity - Urine 1.015 (1.005-1.025); Urine Blood Negative (Negative); Urine Ketones Negative (Negative); Urine Protein Negative (Neg-Trace)
[2023-12-20 14:12] LABS: Alanine Aminotransferase 32 U/L (0-40); Albumin Level 4.5 g/dL (3.5-5.0); Alkaline Phosphatase 56 U/L (39-117); Anion Gap 11 (12-20); Aspartate Amino Transferase 21 U/L (5-37); Bilirubin Total 0.7 mg/dL (0.0-1.0); Blood Urea Nitrogen 11 mg/dL (9-16); Calcium 9.9 mg/dL (8.4-10.2); Carbon Dioxide 26 mmol/L (22-29); Chloride 105 mmol/L (96-108); Cholesterol 192 mg/dL (<200); Estimated Glomerular Filt Rate > 60; Glucose Fasting 96 mg/dL (60-99); HDL Cholesterol 44 mg/dL (>40); LDL Cholesterol Calculated 129 mg/dL (<100); Potassium 3.7 mmol/L (3.3-5.1); Sodium 138 mmol/L (135-145); Total Protein 7.7 g/dL (6.5-8.0); Triglycerides 95 mg/dL (<150)
== END 2023-12-20 11:08 | disposition home or self-care (01) ==
LOC: HO.HMGCLDS 11:07
PROVIDERS: PCP Nurse Practitioner Family; Visit Provider Nurse Practitioner Family
DX: Z00.00 Encounter for general adult medical examination without abnormal findings (principal); Z13.6 Encounter for screening for cardiovascular disorders
CPT/HCPCS: 36415; 80053; 80061; 81003; 84443; 85025

== ENCOUNTER 2025-01-21 11:27 | Outpatient (AMB) | payer OTHER, SELFPAY ==
--- NOTE | 2025-01-21 11:31 | MHC.PC.OV ---
Vital Signs 01/21/25 11:32 Height 6 ft Weight 186 lb BMI 25.2 BP 150/100 H Blood Pressure Location Rt brachial Position Sitting Pulse 72 Pulse Source Pulse Oximeter Pulse Oximetry (%) 98 Oxygen Delivery Method Room Air Intake Visit Reasons: Annual PE Bill Clerk Required: No Accompanied by: Self / Same As Patient Allergies No Known Allergies Allergy (Verified 01/21/25 11:32) Medication List - Last Reconciled 01/21/25 by Myke Eddy [facility] irbesartan 150 mg PO DAILY 90 days Tobacco use date assessed: 01/21/25 Dental Screening Dental Screen Date: 01/21/25 Did you have a dental visit in the last 12 months?: Yes Did you have a dental problem in the last 6 months where you did not have access to dental care?: No Was dental information given to patient?: Patient has dentist HPI Annual PE HPI Details History of Present Illness The patient is a 34-year-old male presenting for a physical examination and management of hypertension and back pain. His hypertension was previously controlled with Irbesartan 150 mg, but a [place] and [place] led to a discontinuation of his medication. As a result, he has remained off his antihypertensive regimen for some time and has now returned to reinitiate treatment. In addition, the patient underwent an L5-S1 microdiscectomy several years ago due to back issues. Currently, he does not exhibit signs of cauda equina syndrome or radiculopathy but has sharp pain above the surgical site, which is provoked by bending forward. He denies any tenderness upon palpation, and examinations like leg lifts and straight-leg raises yield negative results. The review of systems is otherwise unremarkable, as he denies any cardiac, respiratory, gastrointestinal, or urinary issues. Psychological evaluation reveals no suicidal or homicidal thoughts. The patient considers himself to be in good health aside from his blood pressure and back concerns. Health Maintenance - Encourage adherence to antihypertensive regimen. - Plan for early lab testing post-medication restart to monitor renal function and electrolyte levels. - Consider physical therapy for chronic back pain management. 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 Review of Systems - Cardiovascular: Denies chest pain, shortness of breath. - Neurological: Denies dizziness, visual disturbances. - Gastrointestinal: Denies abdominal pain, changes in stool. - Genitourinary: Denies urinary issues. - Musculoskeletal: Reports back pain above surgical site, denies radiculopathy signs. - Psychiatric: Denies suicidal/homicidal ideation. Physical Exam General: Cooperative, healthy appearing, comfortable, no acute distress and well developed Orientation: Patient oriented x3 Limitations: No limitations Head: Normal to inspection Ears: Hearing grossly normal bilaterally Nose: Normal external nose present Face and sinus: Normal facial exam Eyes: Appearance normal, both eyes and all related structures Neck: Normal visual inspection and Yes full ROM Respiratory: Normal respiratory effort and able to speak in complete sentences. Clear to auscultation bilaterally Cardiovascular: Regular rate and rhythm. Normal S1 and S2 GI: Normal to inspection. Soft to palpation and nontender Skin: No rashes or lesions noted Neuro: Patient oriented x3 Extremities: Normal to inspection, negative straight leg raises, no pain with palpation, visible scar noted Results Plan I intend to restart Irbesartan 75 mg for initial management of his hypertension, increasing to 150 mg following tolerance check. Within two to three weeks, labs will be needed to monitor kidney function and electrolyte levels. An X-ray will be conducted to investigate the persistent back pain, and physical therapy may be considered contingent on findings. Discussion Notes We discussed restarting his hypertension medication, initially at 75 mg to monitor tolerance, with subsequent increase to 150 mg. I informed him about the importance of monitoring his blood pressure alongside this regimen. The necessity of getting labs within two to three weeks was emphasized to check renal function and electrolyte balance. WIll have him follow up with our NN for BP checks as well. Regarding his chronic back pain, I explained the plan for an X-ray to assess any changes or issues post-surgery, and the potential benefit of physical therapy depending on results. I emphasized coming back for follow-up especially if symptoms worsen. Patient Instructions - Start taking half a tablet (75 mg) of Irbesartan daily for one to two weeks. - Monitor blood pressure regularly and report significant changes. - Get blood tests in two to three weeks after starting the medication. - Schedule an X-ray as soon as possible. - Consider physical therapy based on X-ray results. - Notify if experiencing new or worsening symptoms like severe pain or dizziness. [facility] Medical History Nerve root compression Lumbar back pain with radiculopathy affecting lower extremity Surgical History No pertinent past surgical history Family History Father No problems noted. Mother No problems noted. Paternal Grandmother Cancer Heart attack Social History Housing: Condominium Alcohol intake: current Alcohol intake frequency: holidays/special occasions only Patient Tobacco Use Status: Former Tobacco user Cigarette Packs Per Day: 0.25 Years Smoked: quit 2 weeks ago e-Cigarette/Vaping Use: Currently Using Second Hand Smoke Exposure: No service: Yes Current occupational status: employed Current occupation: [employer] Current occupational exposures/hazards: Yes Cognitive needs: No Hearing needs: No Vision needs: No Questionnaire PHQ-9 Over the last 2 weeks, how often have you been bothered by any of the following problems? 1. Little interest or pleasure in doing things: not at all 2. Feeling down, depressed, or hopeless: not at all 3. Trouble falling or staying asleep, or sleeping too much: not at all 4. Feeling tired or having little energy: not at all 5. Poor appetite or overeating: not at all 6. Feeling bad about yourself - or that you are a failure or have let yourself or your family down: not at all 7. Trouble concentrating on things, such as reading the newspaper or watching television: not at all 8. Moving or speaking so slowly that other people could have noticed. Or the opposite - being so fidgety or restless that you have been moving around a lot more than usual: not at all 9. Thoughts that you would be better off or of hurting yourself in some way: not at all Total score: 0 Depression Screening Interpretation: Negative Depression Screening Done: Yes 91776 - PHQ-9 Billing: Yes Source: Developed by Drs. Nacho Briggs, Catrachita Hilliard, Donn Stern and colleagues, with an educational jasen from [employer]. Thrive Questionnaire Date Thrive assessed: 01/21/25 I am a: Patient What is your living situation today?: I have a steady place to live Within the past 12 months, did the food you bought not last and you didn't have the money to get more?: Never true Within the past 12 months, did you worry whether your food would run out before you got money to buy more?: Never true Do you have trouble paying for medicines?: No Do you have trouble getting transportation to medical appointments?: No Do you have trouble paying your heating and electricity bill?: No Do you have trouble taking care of your child, family member or friend?: No Do you have trouble with day-to-day activities such as bathing, preparing meals, shopping, managing finances, etc.?: No Are you currently unemployed and looking for a job?: No Are you interested in more education?: No Please select the resources that you would like help with: None Currently or been in a relationship where the following occur: No concerns reported THRIVE Score: 0 AUDIT C Alcohol Use Questionnaire (AUDIT-C) 1. How often do you have a drink containing alcohol?: Monthly or less 2. How many drinks containing alcohol do you have on a typical day when you are drinking?: 1 or 2 3. How often do you have six or more drinks on one occasion?: Never Total Score: 1 Score Reviewed/Action Taken: Yes VERONICA-7 AMB Questionnaire VERONICA-7 Date VERONICA - 7 assessed: 01/21/25 Feeling nervous, anxious, or on edge: 0 = Not at all Not being able to stop or control worryin = Not at all Worrying too much about different things: 0 = Not at all Trouble relaxin = Not at all Being so restless that it is hard to sit still: 0 = Not at all Becoming easily annoyed or irritable: 0 = Not at all Feeling afraid as if something awful might happen: 0 = Not at all Total VERONICA-7 score (0-4 normal; 5-9 mild; 10-14 moderate; 15-21 severe): 0 Source: Developed by Drs. Nacho Briggs, Catrachita Hilliard, Donn Stern and colleagues, with an educational jasen from [employer]. VERONICA-7 Assessment Billing VERONICA-7 Assessment Tool: VERONICA-7 Assessment 43885 Physical exam (Primary Care) Vital Signs: Last Vital Signs Pulse 72 01/21/25 11:32 BP 150/100 H 01/21/25 11:32 Pulse Ox 98 01/21/25 11:32 Oxygen Delivery Method Room Air 01/21/25 11:32 BMI result Body Mass Index 25.2 Tobacco/Smoking Status: Tobacco use Status Tobacco use date assessed 01/21/25 01/21/25 11:33 Patient Tobacco Use Status Former Tobacco user 01/21/25 11:33 e-Cigarette/Vaping Use Currently Using 01/21/25 11:33 PHQ-9: PHQ-9 Score PHQ-9: Total score 0 01/21/25 11:33 Depression Screening Interpretation: Negative Thrive Assessment: Date of Thrive Assessment Date Thrive assessed 01/21/25 01/21/25 11:33 Currently or been in a relationship where the following occur: No concerns reported Coding Level of Care Code Est Pt Level 3 (15155) Est Pt Prev Care 18-39y(74724) Diagnoses Physical exam Z00.00 Hypertension I10 S/P lumbar microdiscectomy Z98.890 Additional Codes VERONICA-7 Assessment Billing - VERONICA-7 Assessment Tool: VERONICA-7 Assessment 28801 ([id number]) PHQ-9 - 50022 - PHQ-9 Billing: Yes ([id number]) Assessment & Plan Assessment & Plan (1) Physical exam: Code(s): Z00.00 - Encounter for general adult medical examination without abnormal findings Category: Medical (2) Hypertension: Code(s): I10 - Essential (primary) hypertension Category: Medical (3) S/P lumbar microdiscectomy: Comment: microdiscectomy L5-S1 (01/05/2022) Code(s): Z98.890 - Other specified postprocedural states Category: Surgical Plan . Orders: Orders UA CC w/rflx Micro + Cult Today I10 - Essential (primary) hypertension, Z00.00 - Encounter for general adult medical examination without abnormal findings Lipid Panel Today I10 - Essential (primary) hypertension, Z00.00 - Encounter for general adult medical examination without abnormal findings Complete Blood Count Auto Diff Today I10 - Essential (primary) hypertension, Z00.00 - Encounter for general adult medical examination without abnormal findings Comprehensive [place]. Panel Fast Today I10 - Essential (primary) hypertension, Z00.00 - Encounter for general adult medical examination without abnormal findings TSH reflex Free T4 Today I10 - Essential (primary) hypertension, Z00.00 - Encounter for general adult medical examination without abnormal findings XR lumbar spine 2-3V Today Z98.890 - Other specified postprocedural states Medications: New irbesartan 150 mg PO DAILY 90 days 90 tabs 0RF
[2025-01-21 11:32] VITALS: BP 150/100; PULSE 72; O2SAT 98; BMI 25.2
--- OUTSIDE RECORDS SUMMARY | 2025-01-21 13:14 | XMS_ITS | Continuity of Care Document ---
Author Name [facility] Organization [facility] Care Team Providers Care Hogshead Filler Name Role Phone DOD-VA Unavailable Unavailable Problems Combined list of problems from Department of Defense and Veterans Affairs facilities. It does not include entries that were removed or entered in error. Problem Status Onset Date Problem Type Date of Resolution Comments Source Certification status Active 06/05/2024 Diagnosis 0310M-[facility] [employer] Certification status Active 2024 Diagnosis 0310M-AF-C- [facility] [employer] ASSESSMENT, POST-DEPLOYMENT, DOCUMENTED ON [id number] Inactive 05/09/2018 Condition DoD Elevated blood-pressure reading, without diagnosis of hypertension Inactive 04/02/2018 Condition DoD Other specified disorders of veins Inactive 04/02/2018 Condition DoD Low back pain Inactive 04/02/2018 Condition DoD EXAM, FORMAL OCCUPATIONAL HEALTH PROGRAM INCLUDING HEARING CONSERVATION PROGRAM, PERIODIC FOR CONTINUED SURVEILLANCE FOR OCCUPATIONAL WORKPLACE EXPOSURE Active 08/03/2017 Condition DoD Encounter for examination of ears and hearing without abnormal findings Active 08/26/2016 Condition DoD Encounter for hearing conservation and treatment Active 08/26/2016 Condition DoD Abnormal EKG finding Active Condition 309C-AF-C- [facility] [employer] Essential hypertension Active Condition 0C-AF-C- [facility] LBP - Low back pain Active Condition 309C-AF-C- [facility] Leukopenia Active Condition 309C-AF-C- [facility] Nicotine dependence Active Condition 0C-AF-C- [facility] PFO - Patent foramen ovale Active Condition 0C-AF-C- [facility] [employer] EXAM, FORMAL OCCUPATIONAL HEALTH PROGRAM INCLUDING HEARING CONSERVATION PROGRAM, ESTABLISH BASELINE PRIOR TO OCCUPATIONAL WORKPLACE EXPOSURE Active Condition DoD Sprain of unspecified ligament of right ankle Active Condition DoD Medications Combined list of outpatient medications from Department of Defense and Veterans Affairs facilities.Medications provided include 1) outpatient medications from the last 15 months, and 2) patient-reported medications. Medication Details Route Status Patient Instructions Prescription Expires Prescription Number Last Dispense Date Ordering Provider Order Date Order Qty Source AFLURIA QUAD 2019- (3YR UP) (influenza virus vaccine quadrivalen t (36 mos up)/PF), 60MCG/ AFLURIA QUAD (3YR UP) (influen za virus vaccine quadriva lent (36 mos up)/PF), 60MCG/ Start Date: 07/03/20 Stop Date: 12/07/22 Status: Disconti nued Repeat number: 1 Discont inued 12/07/20222022 No Facilit y Access aspirin 0 total refill(s ), Maintena nce Ordered 2023 0310C-A F-C-[facility] IRBESARTAN (IRBESARTAN ), 150 MG, TABLET, ORAL, [email or web address] PHARMA, 90 ea. BOTTLE Cancele d [id number] : 2023 0 Pharmac y Data Transac tion Service Facilit y irbesartan 150 mg oral tablet 1 tab(s), Oral, Daily, for blood pressure , # 90 tab(s), 3 total refill(s ), Maintena nce Oral (given by mouth) Ordered 2023 90.0 0310C-A F-C-66t [facility] irbesartan 75 mg oral tablet 1 tab(s), Oral, Daily, for blood pressure , # 90 tab(s), 3 total refill(s ), Maintena nce Oral (given by mouth) Discont inued 02/27/20242023 90.0 0310C-A F-C-[facility] Allergies, Adverse Reactions, Alerts Combined list of allergies from Department of Defense and Veterans Affairs facilities. It does not include entries that were removed or entered in error. Substance Category Reaction Severity Reaction type Status Date Reported Comments Source No Known Allergies Drug allergy (disorder) active 12/01/2023 DoD Immunizations Combined list of available immunizations from the Department of Defense and Veterans Affairs facilities. Immunization Series Date Given Administered By Site Reaction Lot Number CVX Code Drug Cook Specialty Foreign Food Status Comments Source influenza, injectable, quadrivalent- pf 2021 DAMEON [id number] 150 comple t ed Result Comment: Route: Unknown Manufactu rer: [facility] ([facility]) 0310C-A F-C-[facility] [employer] [employer] influenza, injectable, quadrivalent- pf 2021 NATASHABROOKS [id number] 150 comple t ed Result Comment: Route: Unknown Manufactu rer: [facility] ([facility]) 0310C-A F-C-66t h [facility] [employer] Influenza, injectable, quadrivalent, preservative free 0 2021 [id number] 150 [facility] ([facility]) complet ed Influenza , injectabl e, quadrival ent, preservat quoc free DoD COVID Vaccine Moderna 2020 NATASHABROOKS [id number] 207 comple t ed Result Comment: Route: Unknown Manufactu rer: [facility] (MOD) 0310C-A F-C-66t h [facility] [employer] SARS-COV-2 (COVID-19) vaccine, mRNA, spike protein, LNP, preservative free, 100 mcg or 50 mcg dose 2 2020 [id number] 207 Moderna US, Inc. (MOD) complet ed SARS-COV- 2 (COVID-19 ) vaccine, mRNA, spike protein, LNP, preservat quoc free, 100 mcg or 50 mcg dose DoD COVID Vaccine Moderna 2020 NATASHABROOKS [id number] 207 comple t ed Result Comment: Route: Unknown Manufactu rer: [facility] (MOD) 0310C-A F-C-66t h [facility] [employer] SARS-COV-2 (COVID-19) vaccine, mRNA, spike protein, LNP, preservative free, 100 mcg or 50 mcg dose 1 2020 [id number] 207 Moderna [employer], Inc. (MOD) complet ed SARS-COV- 2 (COVID-19 ) vaccine, mRNA, spike protein, LNP, preservat quoc free, 100 mcg or 50 mcg dose DoD influenza, injectable, quadrivalent- pf 2019 150 complet ed influenza , injectabl e, quadrival ent-pf 06/25/20 Given Ambulat ory Pharmac y influenza, injectable, quadrivalent- pf 2019 150 complet ed influenza , injectabl e, quadrival ent-pf 06/25/20 Given Ambulat ory Pharmac y influenza, injectable, quadrivalent, preservative free 2019 [id number], () Not Given influenza , injectabl e, quadrival ent, preservat quoc free DoD Influenza, injectable, quadrivalent, preservative free 0 2019 150 (MVX) complet ed Influenza , injectabl e, quadrival ent, preservat quoc free DoD influenza, injectable, quadrivalent 2018 [id number] 158 Seqirus complet ed influenza , injectabl e, quadrival ent 07/26/19 Given Ambulat ory Pharmac y influenza, injectable, quadrivalent 2018 [id number] 982 158 Seqirus complet ed influenza , injectabl e, quadrival ent 07/26/19 Given Ambulat ory Pharmac y influenza, injectable, quadrivalent, contains preservative 1 2018 [id number] 982 158 Seqirus (SEQ) complet ed influenza , injectabl e, quadrival ent, contains preservat quoc DoD influenza, injectable, quadrivalent- pf 2017 [id number] 150 Seqirus complet ed influenza , injectabl e, quadrival ent-pf 06/29/18 Given Ambulat ory Pharmac y influenza, injectable, quadrivalent- pf 2017 [id number] 150 Seqirus complet ed influenza , injectabl e, quadrival ent-pf 06/29/18 Given Ambulat ory Pharmac y Influenza, injectable, quadrivalent, preservative free 1 2017 [id number] 150 Seqirus (SEQ) comple t ed Influenza , injectabl e, quadrival ent, preservat quoc free DoD anthrax vaccine 2017 [id number] 24 Emergent Biosolutions complet ed anthrax vaccine 04/01/18 Given Ambulat ory Pharmac y anthrax vaccine 2017 [id number] 24 Emergent [employer] complet ed anthrax vaccine 04/01/18 Given Ambulat ory Pharmac y anthrax vaccine 2 2017 [id number] 24 Emergent [employer] [place] (MIP) complet ed anthrax vaccine DoD typhoid Vi capsular polysaccharid e vac 2017 [id number] 101 sanofi pasteur complet ed typhoid Vi capsular polysacch aride vac 12/12/17 Given Ambulat ory Pharmac y anthrax vaccine 2017 [id number] 24 Emergent [employer] complet ed anthrax vaccine 12/12/17 Given Ambulat ory Pharmac y typhoid Vi capsular polysaccharid e vac 2017 [id number] 101 sanofi pasteur complet ed typhoid Vi capsular polysacch aride vac 12/12/17 Given Ambulat ory Pharmac y anthrax vaccine 2017 [id number] 24 Emergent Biosolutions complet ed anthrax vaccine 12/12/17 Given Ambulat ory Pharmac y anthrax vaccine 1 2017 [id number] 24 [employer] [place] (MIP) complet ed anthrax vaccine DoD typhoid Vi capsular polysaccharid e vaccine 1 2017 [id number] 101 Sanofi Pasteur (PMC) complet ed typhoid Vi capsular polysacch aride vaccine DoD influenza, injectable, quadrivalent 2016 [id number] 158 GlaxoSmithKli ne complet ed influenza , injectabl e, quadrival ent 06/13/17 Given Ambulat ory Pharmac y influenza, injectable, quadrivalent 2016 [id number] 158 GlaxoSmithKli ne complet ed influenza , injectabl e, quadrival ent 06/13/17 Given Ambulat ory Pharmac y influenza, injectable, quadrivalent, contains preservative 1 2016 DM9N3 158 SmithKline (SKB) complet ed influenza , injectabl e, quadrival ent, contains preservat quoc DoD influenza, seasonal, injectable-pf 2015 [id number] 140 Seqirus complet ed influenza , seasonal, injectabl e-pf 07/19/16 Given Ambulat ory Pharmac y influenza, seasonal, injectable-pf 2015 [id number] 140 Seqirus complet ed influenza , seasonal, injectabl e-pf 07/19/16 Given Ambulat ory Pharmac y Influenza, seasonal, injectable, preservative free 2 2015 [id number] 140 Seqirus (SEQ) comple t ed Influenza , seasonal, injectabl e, preservat quoc free DoD hepatitis A-hepatitis B vaccine 2015 [id number] 104 GlaxoSmithKli ne complet ed hepatitis A-hepatit is B vaccine 03/22/16 Given Ambulat ory Pharmac y hepatitis A-hepatitis B vaccine 2015 [id number] 104 GlaxoSmithKli ne complet ed hepatitis A-hepatit is B vaccine 03/22/16 Given Ambulat ory Pharmac y hepatitis A and hepatitis B vaccine 3 2015 [id number] 104 [facility] ([facility]) complet ed hepatitis A and hepatitis B vaccine DoD hepatitis A-hepatitis B vaccine 2014 [id number] 104 GlaxoSmithKli ne complet ed hepatitis A-hepatit is B vaccine 07/27/15 Given Ambulat ory Pharmac y hepatitis A and hepatitis B vaccine 1 2014 [id number] 104 [facility] ([facility]) complet ed hepatitis A and hepatitis B vaccine DoD hepatitis A-hepatitis B vaccine 2014 [id number] 104 GlaxoSmithKli ne complet ed hepatitis A-hepatit is B vaccine 06/17/15 Given Ambulat ory Pharmac y influenza, seasonal, injectable-pf 2014 [id number] 140 CSL Behring complet ed influenza , seasonal, injectabl e-pf 06/17/15 Given Ambulat ory Pharmac y influenza, seasonal, injectable-pf 2014 [id number] 140 CSL Behring complet ed influenza , seasonal, injectabl e-pf 06/17/15 Given Ambulat ory Pharmac y hepatitis A-hepatitis B vaccine 2014 [id number] 104 GlaxoSmithKli ne complet ed hepatitis A-hepatit is B vaccine 06/17/15 Given Ambulat ory Pharmac y hepatitis A and hepatitis B vaccine 1 2014 [id number] 104 [place] [facility] ([facility]) complet ed hepatitis A and hepatitis B vaccine DoD Influenza, seasonal, injectable, preservative free 1 2014 [id number] 140 CS [employer] (CS) complet ed Influenza , seasonal, injectabl e, preservat quoc free DoD adenovirus vaccine, live 2014 [id number] 9 143 Teva Pharmaceutica complet ed adenoviru s vaccine, live 06/11/15 Given Ambulat ory Pharmac y tetanus, diphtheria, acellular pertu is 2014 [id number] 115 GlaxoSmithKli ne complet ed tetanus, diphtheri a, acellular pertussis 06/11/15 Given Ambulat ory Pharmac y meningococcal A,C,Y,W-135 (MCV4P) 2014 [id number] 114 sanofi pasteur complet ed meningoco ccal A,C,Y,W-1 35 (MCV4P) 06/11/15 Given Ambulat ory Pharmac y poliovirus vaccine, inactivated 2014 L1442 10 sanofi pasteur complet ed polioviru s vaccine, inactivat ed 06/11/15 Given Ambulat ory Pharmac y adenovirus vaccine, live 2014 [id number] 9 143 Teva Pharmaceutica ls complet ed adenoviru s vaccine, live 06/11/15 Given Ambulat ory Pharmac y tetanus, diphtheria, acellular pertu is 2014 [id number] 115 [employer] complet ed tetanus, diphtheri a, acellular pertussis 06/11/15 Given Ambulat ory Pharmac y meningococcal A,C,Y,W-135 (MCV4P) 2014 [id number] 114 sanofi pasteur complet ed meningoco ccal A,C,Y,W-1 35 (MCV4P) 06/11/15 Given Ambulat ory Pharmac y poliovirus vaccine, inactivated 2014 L1442 10 sanofi pasteur complet ed polioviru s vaccine, inactivat ed 06/11/15 Given Ambulat ory Pharmac y tuberculin purified protein derivative 2014 [id number] 96 sanofi pasteur complet ed tuberculi n purified protein derivativ e 06/11/15 Given Ambulat ory Pharmac y poliovirus vaccine, inactivated 1 2014 L1442 10 Sanofi Pasteur (PMC) complet ed polioviru s vaccine, inactivat ed DoD meningococcal polysaccharid e (groups A, C, Y and W-135) diphtheria toxoid conjugate vaccine (MCV4P) 1 2014 [id number] 114 Sanofi Pasteur (PMC) complet ed meningoco ccal polysacch aride (groups A, C, Y and W-135) diphtheri a toxoid conjugate vaccine (MCV4P) DoD tetanus toxoid, reduced diphtheria toxoid, and acellular pertu is vaccine, adsorbed 1 2014 [id number] 115 Me[employer] (SKB) complet ed tetanus toxoid, reduced diphtheri a toxoid, and acellular pertussis vaccine, adsorbed DoD Adenovirus, type 4 and type 7, live, oral 1 2014 [id number] 9 143 [facility] (BRR) complet ed Adenoviru s, type 4 and type 7, live, oral DoD measles virus vaccine 0 2014 05 () Not Given measles virus vaccine DoD rubella virus vaccine 0 2014 06 () Not Given rubella virus vaccine DoD mumps virus vaccine 0 2014 07 () Not Given mumps virus vaccine DoD varicella virus vaccine 0 2014 21 () Not Given varicella virus vaccine DoD Results Combined list of recent chemistry, hematology and other laboratory results from Department of Defense and Veterans Affairs, ranging from 15 months to all on record, depending upon the facility. Order Name Results Value Reference Range Date Interpretation Specimen Comments Source Infectiou s Disease HIV-1/O/2 Non-Reac tive 1 (12/12/24 9:41 AM) 12/12 N Interpretiv e Data: INTERPRETAT ION: This method is a screening procedure for the detection of HIV p24 Antigen and Antibodies to HIV-1, including Group O, and/or HIV-2. NON-REACTIV E: HIV-1 antigen and HIV-1 / HIV-2 antibodies were not detected. No laboratory evidence of HIV infection. A negative test result does not exclude the possibility of exposure to or infection with HIV. HIV antibodies and/or p24 antigen may be undetectabl e in some stages of the infection and in some clinical conditions. If acute HIV infection is suspected, consider submitting another specimen to a reference laboratory for HIV-1 RNA. SCREEN REACTIVE - CONFIRMATIO N TO FOLLOW: Possible presence of HIV-1antibo dies, HIV-2 antibodies and/or HIV-1 p24 antigen. Specimen will reflex to the confirmatio n testing that fulfills the Center for Disease Control and Prevention' s HIV diagnostic algorithm. Refer to [facility] Lab Guide for additional information : [email or web address]/ [email or web address] x Testing performed by Kimberlee palafox 5600A-U [employer] EPILAB Miscellan eous Sendouts Repository Sample Received (12/12/24 9:41 AM) 12/12 N 5600A[employer]U [employer] EPILAB Encounters Combined list of: 1) Encounters from Department of Veterans Affairs facilities going backup to the last 18 months, not all VA inpatient encounters are included; 2) Encounters from the Department of Defense facilities going backup to 280 months. Location Location Details Encounter Type Encounter Number Reason For Visit Attending Provider ADM Date DC Date Status Disposition [place] [address](Hea ring Conservat ion, BMT) OUTPATIENT [id number] ELIZABETH PABLOLalita 06/15 Released w/o Limitations [facility] [place] [address](H earing Conserv ation, BMT) [place] [address](Yadiel matology Surgery, [facility]) OUTPATIENT [id number] jesus KIRKFROYJc CHIRAG Lizarraga CHAVA 06/16 Released w/o Limitations [facility] [place] [address](D ermatol ogy Surgery , [facility]) [place] [address]([facility]) OUTPATIENT [id number] Late entry-S trep Prophyl axis EMY MALONE 06/22 Released w/o Limitations [facility] [place] [address]([facility] [place] [address](LUPE Rollins) OUTPATIENT [id number] Notes Entered by: SUNDEEP GLOVER 21 Jul 2015 1307 ------- ------- ------- ------- -- Cold Pack SUNDEEP GLOVER 07/21 Released w/o Limitations [facility] [place] [address](Danny Rollins) [employer]([facility]) OUTPATIENT [id number] Notes Entered by: RUBINA ROJAS 04 Sep 2015 1449 ------- ------- ------- ------- -- [facility] RUBINA ROJAS 09/04 Released w/o Limitations [employer]([facility]) [employer]([facility]) OUTPATIENT [id number] Notes Entered by: BINA JOHN 04 Nov 2015 0909 ------- ------- ------- ------- -- Cough 364trs DARRIUS MILLER 11/04 Released w/o Limitations [employer]([facility]) [employer]([facility]) OUTPATIENT [id number] Ankle Pain [id number] 364TRS GIL HONG 11/13 Released w/o Limitations [employer]([facility]) [employer]([facility]) OUTPATIENT [id number] Notes Entered by: DARSHANA CUELLO 01 Feb 2016 0834 ------- ------- ------- ------- -- [facility] Medical Record Review DARSHANA EVANGELISTA 01/31 Released w/o Limitations [employer]([facility]) [employer]([facility] Team) TELE CONSULT [id number] Notes Entered by: MATT RENAE 03 Mar 2016 0929 ------- ------- ------- ------- -- RAFI FORTUNE 03/[employer](Rajani mccarty Team) [employer](BO C) OUTPATIENT [id number] Notes Entered by: CHRISTELLE ALVAREZ 26 Apr 2016 1002 ------- ------- ------- ------- -- PHA 1 year record review EVARISTO MARCANO 04/26 Released w/o Limitations [employer]([facility]) [employer](TIFFANI Willams HCP) OUTPATIENT [id number] annual audiogr am KIM DAVEY 08/26 Released w/o Limitations [employer](Chelsea Reyes HCP) [employer]([facility] Team) OUTPATIENT [id number] RAQUEL Gamino 08/26 Released w/o Limitations [employer](Rajani mccarty Team) [employer]([facility] Team) TELE CONSULT [id number] Notes Entered by: WOJCIECH OTERO 26 Apr 201706 ------- ------- ------- ------- -- Other-MARISOL Veloz 04/26 Medical Group([facility]) [facility]) TELE CONSULT [id number] Notes Entered by: NORMA RODARTE 03 May 201715 ------- ------- ------- ------- -- RAYNE [facility] ed online with KRYSTYNA Arango 05/03 Medical Group([facility]) [facility] Group(Dep [facility] Health Assessmen ts) OUTPATIENT [id number] [facility] KRYSTYNA ROOT 05/29 Released w/o Limitations [employer](D eployme Health Assess ents) [facility] OUTPATIENT [id number] [facility] RAQUEL LEAVITT 05/29 Released w/o Limitations [employer] [facility]) [facility](JANNAN Debra Willams HCP) OUTPATIENT [id number] annual audiogr KOKO Ziegler 08/03 Released w/o Limitations [facility] Team) TELE CONSULT [id number] Notes Entered by: RAVEN BEARD 03 Aug 2017 1104 ------- ------- ------- ------- -- Lab Chelsea/RAVEN HERNDON 08/03 [facility] Group([facility] Team) OUTPATIENT [id number] LESLIE Nation 10/09 Released w/o Limitations [employer] [facility](Isabell traylor OM Team) [facility](Kuhn ders OM Team) TELE CONSULT [id number] Notes Entered by: Casi GOEL 10 Oct 2017 0730 ------- ------- ------- ------- -- Xray berry COLLAZO CALLIE J 10/10 Referred for Appointment [facility](R aiders Team) [facility] TELE CONSULT [id number] Notes Entered by: BETTY HERNANDEZ 16 Oct 2017 1334 ------- ------- ------- ------- -- Closing REGULO Alexander 10/16 Medical Group([facility] Team) Medical Group([facility] Health Assessmen ts) OUTPATIENT [id number] Notes Entered by: THOR HERNANDEZ 07 Dec 2017 1608 ------- ------- ------- ------- -- Predepl oy/Qata r KRYSTYNA ROOT 12/07 Released w/o Limitations [employer] [facility](D eployme Health Assessm ents) [facility] Group([facility] Team) OUTPATIENT [id number] deploym ent fior ce - shoulde r injury no longer an issue DAVID RICE 12/11 Released w/o Limitations [facility] Team) Theater Facility OUTPATIENT [id number] Theater Provider 04/02 Released with Work/Duty Limitations Theater Facilit [facility] Theater Facility OUTPATIENT [id number] Theater Provider 05/09 Released w/o Limitations Theater Facilit y [facility] Team) OUTPATIENT [id number] back and leg pain;wo rse in past 3 days MARLO SR 07/05 Released w/o Limitations [facility] Team) [facility] Team) OUTPATIENT [id number] sciatic a pain has worsene MARLO Quevedo 07/11 Released with Work/Duty Limitations [facility] Team) [facility] OUTPATIENT [id number] VIRT A - KRYSTYNA ROOT 07/31 Released w/o Limitations [facility](D eployme nt Health Assessm ents) [facility] [place] H[facility]) OUTPATIENT [id number] Notes Entered by: DRISS VINCENT 01 Aug 2018 1300 ------- ------- ------- ------- -- WALK IN ANNUAL 1330 DRISS WATTS 08/01 Released w/o Limitations [facility] HCP) Medical Group([facility] Team) OUTPATIENT [id number] VIRTUAL PHA MARLO SR 08/01 Released w/o Limitations [facility] Team) [facility] Team) TELE CONSULT [id number] Notes Entered by: Uriah SR 06 Aug 2018 1703 ------- ------- ------- ------- -- PHA concern BETTY COLE 08/07 [facility] Group( [facility] Team) OUTPATIENT [id number] VIRT-94 [phone], discuss PHA answers , booked off TCON MARLO SR 08/14 Released w/o Limitations [facility] Team) [facility]) OUTPATIENT [id number] Notes Entered by: THOR HERNANDEZ 03 Sep 2018 1402 ------- ------- ------- ------- -- KRYSTYNA STAUFFER 09/03 Released w/o Limitations [facility](D eployme nt Health Assessm ents) [facility]) OUTPATIENT [id number] Lumbar pain SUKI GOMEZ 09/25 Released w/o Limitations [facility](P [facility]) [facility] Group([facility]) OUTPATIENT [id number] JASONSUKI KRAMER D 10/09 Released w/o Limitations [facility]) [facility]) OUTPATIENT [id number] JASONSUKI KRAMER D 10/12 Released w/o Limitations [facility]) [facility] Group([facility]) OUTPATIENT [id number] JASONSUKI KRAMER D 10/18 Released w/o Limitations [facility](P [facility]) [facility] Group([facility]) OUTPATIENT [id number] JASONSUKI KRAMER D 11/09 Released w/o Limitations [facility](P [facility]ys[facility] Therapy Clinic) [facility] Group([facility] Team) OUTPATIENT [id number] sore throat cant hear out of both ears MARLO SR 01/09 Sick at Home/Quarter s Medical Group(Rajani mccarty FH Team) Medical Group([facility]ton FH Team) OUTPATIENT [id number] jhoan MARLO Jimenez 03/28 Released with Work/Duty Limitations [employer](Rajani mccarty FH Team) Medical Group(Bam hartley OM Team) TELE CONSULT [id number] Notes Entered by: Taya DURON 30 Jul 2019 0756 ------- ------- ------- ------- -- Special ty Referra ISA Castro 07/30 Medical Group(R aiders OM Team) Medical Group(TIFFANI Willams HCP) OUTPATIENT [id number] Audiogr MICHAEL Castro 08/07 Released w/o Limitations [employer](Chelsea Reyes HCP) [facility] OUTPATIENT [id number] [facility] 08/20 Released w/o Limitations [employer](D [employer] Health Assess ents) [employer]([facility] Team) OUTPATIENT [id number] Pirifor mis pain ongoing MARLO SR 08/27 Released with [employer]uty [employer]([facility] OM Team) [employer]([facility]) OUTPATIENT [id number] VIRTUAL PHA MARLO SR 08/31 Released with [employer]uty [employer]([facility] OM Team) [facility] [employer]([facility]) TELE CONSULT [id number] Notes Entered by: Uriah SR 01 Sep 2019 0820 ------- ------- ------- ------- -- PHA concern KATHLEEN DERAS 09/01 [employer] Group([facility] a[facility] OM Team) [employer]([facility]) OUTPATIENT [id number] Notes Entered by: Rajani PAYNE 02 Sep 2019 1305 ------- ------- ------- ------- -- Walk in BP day 1 of 5 MERLYN MIRADNAJYOTSNA A 09/02 Released w/o Limitations [employer]([facility] OM Team) [employer]([facility]) OUTPATIENT [id number] Notes Entered by: NURIS GUADALUPE 03 Sep 2019 1259 ------- ------- ------- ------- -- walk in BP day 2 MIRANDA MERLYNJYOTSNA A 09/03 Released w/o Limitations [employer]([facility] OM Team) [facility]) OUTPATIENT [id number] BP follow up MARLO SR 09/05 Released w/o Limitations [employer]([facility] OM Team) [facility]) OUTPATIENT [id number] jhoan waMARLO Barry 03/18 Released with Work/Duty Limitations [employer]([facility]iders OM Team) [employer] [facility] OUTPATIENT [id number] CONRADO 5 URI TEE 09/21 Released w/o Limitations [employer]([facility]) [facility] [employer]) OUTPATIENT [id number] AF [facility] PHA(A Complet ed)(GSU )(OD) URI TEE 05/04 Released w/o Limitations [employer]) [facility] Team A) TELE CONSULT [id number] Notes Entered by: REBECA GALVAN 27 Aug 2021 1008 ------- ------- ------- ------- -- JOSUÉ Santiago 08/27 Other Not Elsewhere Classified [facility] Team A) TELE CONSULT [id number] Notes Entered by: MU PIZARRO 08 Sep 2021 1540 ------- ------- ------- ------- -- U-Pro file Request XAVIER PIZARRO 09/08 Other Not Elsewhere Classified [facility] Team A) OUTPATIENT [id number] Notes Entered by: NORMA NJ 30 Sep 2021 0808 ------- ------- ------- ------- -- ZENAIDA Luevano 09/30 Released w/o Limitations [employer]) TELE CONSULT [id number] Notes Entered by: MIGUEL ALEMAN 02 Nov 2021 1448 ------- ------- ------- ------- -- Profile Request MILAGRO SHEEHAN 11/02 [facility]) [facility](Farrukh carballo [facility] Team A) TELE CONSULT [id number] Notes Entered by: MU PIZARRO 10 Nov 2021 1652 ------- ------- ------- ------- -- SHONNA Secure Msg: Health Record Update XAVIER PIZARRO 11/10 Other Not Elsewhere Classified [facility]( anscom [facility] Team A) [facility]) TELE CONSULT [id number] Notes Entered by: MIGUEL ALEMAN 19 Jan 2022 1044 ------- ------- ------- ------- -- CONLV/ PROFILE MIGUEL ALEMAN 01/19 Other Not Elsewhere Classified [facility]) [facility] Medical [facility]) OUTPATIENT [id number] AF [facility] URI TEE 06/06 Released w/o Limitations [facility]) 0310A-AF- [facility] [place] Between Visit [id number] 02/21 Discharge Disposition: Home or Self Care 0310A-A F-C-[facility] 0310M-AF- [facility] Outpatient [id number] Encount er for other adminis trative examina tions FRANKLYN BARR 04/08 Discharge Disposition: Home or Self Care 0310M-A F-C-[facility] [place] 0310M-AF- [facility] Outpatient [id number] Encount er for other adminis trative examina tions CHAKA CLAIREORCHAMANINDER 06/05 Discharge Disposition: Home or Self Care 0310M-A F-C-[facility] [place] 0310C-AF- C[facility] Dental [id number] GABO MATSON 07/24 Discharge Disposition: Home or Self Care 0-A -[facility] [facility] [id number] AMDS Outpatient [id number] PRANAY HANSON 12/19 Discharge Disposition: Home or Self Care [id number] AMDS Procedures Combined list of: 1) Procedures from Department of Veterans Affairs facilities going back up to thelast 18 months, not all VA non-surgical procedures are included; 2) All procedures from the Department of Defense facilities. Procedure Procedure Type Code Date Perfomer Comments Sourc e [id number] -- [facility] Lumbar disectomy -- C [facility] Psychiatric evaluation of hospital records, other psychiatric reports, psychometric and/or projective tests, and other accumulated data for medical diagnostic purposes Psychiatric evaluation of hospital records, other psychiatric reports, psychometric and/or projective tests, and other accumulated data for medical diagnostic purposes [id number] 309[facility] BLOOD PRESSURE, MEASURED BLOOD PRESSURE, MEASURED - [facility] Therapeutic procedure, one or more areas, each 15 minutes; therapeutic exercises to develop strength and endurance, range of motion and flexibility Therapeutic procedure, one or more areas, each 15 minutes; therapeutic exercises to develop strength and endurance, range of motion and flexibility [id number] [facility] BRIEF COMM TECH-BASE SERV,E.G. VIRT CHK-IN,BY PHYS/OTH QUAL HCP,RPT E&M SERV,PROV TO EST PT,NOT ORIG FRM REL E/M SERV PROV W/IN PREV 7DAY NOR LEAD TO E/M SRV/PX W/IN NEXT 24HR/SOON SANG; 5-10 MIN DISC 022 [facility] ADMINISTRATION OF PATIENT-FOCUSED HEALTH RISK ASSESSMENT INSTRUMENT (EG, HEALTH HAZARD APPRAISAL) WITH SCORING AND DOCUMENTATION, PER STANDARDIZED INSTRUMENT 021 [facility] BRIEF COMM TECH-BASE SERV,E.G. VIRT CHK-IN,BY PHYS/OTH QUAL HCP,RPT E&M SERV,PROV TO EST PT,NOT ORIG FRM REL E/M SERV PROV W/IN PREV 7DAY NOR LEAD TO E/M SRV/PX W/IN NEXT 24HR/SOON SANG; 5-10 MIN DISC [facility] PSYCHIATRIC EVALUATION OF HOSPITAL RECORDS, OTHER PSYCHIATRIC REPORTS, PSYCHOMETRIC AND/OR PROJECTIVE TESTS, AND OTHER ACCUMULATED DATA FOR MEDICALDIAGNOSTIC PURPOSES [facility] ADMINISTRATION OF PATIENT-FOCUSED HEALTH RISK ASSESSMENT INSTRUMENT (EG, HEALTH HAZARD APPRAISAL) WITH SCORING AND DOCUMENTATION, PER STANDARDIZED INSTRUMENT [facility] ELECTROCARDIOGRAM, ROUTINE ECG WITH AT LEAST 12 LEADS; WITH INTERPRETATION AND REPORT [facility] BLOOD PRESSURE MEASURED (CKD)(DM) [facility] BLOOD PRESSURE MEASURED (CKD)(DM) [facility] ONLINE ASSESS &MANAG SERV PROVIDE,A QUAL NONPHYS HCP TO AN ESTABLISHED PAT/GUARDIAN,NOT ORIGINAT FR RELAT ASSESS &MANAG SERV PROVIDE W/IN THE PREV 7 DAYS,USE THE [employer] NETWORK [facility] TELE ASSESS & MGT SRV PROV QUAL NONPHYS HLTH CARE PRO TO EST PAT,PARENT,GUARD NOT ORIG REL ASSESS & MGT SRV PROV W/IN PREV 7 DAYS NOR LEAD ASSESS & MGT SRV/PX W/IN NXT 24 HR/SOON APT;5-10 MIN MED DIS [facility] PSYCHIATRIC EVALUATION OF HOSPITAL RECORDS, OTHER PSYCHIATRIC REPORTS, PSYCHOMETRIC AND/OR PROJECTIVE TESTS, AND OTHER ACCUMULATED DATA FOR MEDICALDIAGNOSTIC PURPOSES [facility] ADMINISTRATION OF PATIENT-FOCUSED HEALTH RISK ASSESSMENT INSTRUMENT (EG, HEALTH HAZARD APPRAISAL) WITH SCORING AND DOCUMENTATION, PER STANDARDIZED INSTRUMENT [facility] THERAPEUTIC PROCEDURE, 1 OR MORE AREAS, EACH 15 MINUTES; THERAPEUTIC EXERCISES TO DEVELOP STRENGTH AND ENDURANCE, RANGE OF MOTION AND FLEXIBILITY [facility] THERAPEUTIC PROCEDURE, 1 OR MORE AREAS, EACH 15 MINUTES; THERAPEUTIC EXERCISES TO DEVELOP STRENGTH AND ENDURANCE, RANGE OF MOTION AND FLEXIBILITY [facility] THERAPEUTIC PROCEDURE, 1 OR MORE AREAS, EACH 15 MINUTES; THERAPEUTIC EXERCISES TO DEVELOP STRENGTH AND ENDURANCE, RANGE OF MOTION AND FLEXIBILITY [facility] ADMINISTRATION OF PATIENT-FOCUSED HEALTH RISK ASSESSMENT INSTRUMENT (EG, HEALTH HAZARD APPRAISAL) WITH SCORING AND DOCUMENTATION, PER STANDARDIZED INSTRUMENT [facility] ONLINE ASSESS &MANAG SERV PROVIDE,A QUAL NONPHYS HCP TO AN ESTABLISHED PAT/GUARDIAN,NOT ORIGINAT FRM RELAT ASSESS &MANAG SERV PROVIDE W/IN THE PREV 7 DAYS,USE THE [employer] NETWORK [facility] ADMINISTRATION OF PATIENT-FOCUSED HEALTH RISK ASSESSMENT INSTRUMENT (EG, HEALTH HAZARD APPRAISAL) WITH SCORING AND DOCUMENTATION, PER STANDARDIZED INSTRUMENT [facility] PURE TONE AUDIOMETRY (THRESHOLD), AUTOMATED; AIR ONLY DoD ONLINE ASSESS &MANAG SERV PROVIDE,A QUAL NONPHYS HCP TO AN ESTABLISHED PAT/GUARDIAN,NOT ORIGINAT FRM RELAT ASSESS &MANAG SERV PROVIDE W/IN THE PREV 7 DAYS,USE THE [employer] NETWORK Do[facility] INJECTION, KETOROLAC TROMETHAMINE, PER 15 MG [facility] BRIEF EMOTIONAL/BEHAVIORAL ASSESSMENT (EG, DEPRESSION INVENTORY, ATTENTION-DEFICIT/HYP ERACTIVITY DISORDER [ADHD] SCALE), WITH SCORING AND DOCUMENTATION, PER STANDARDIZED INSTRUMENT [facility] ADMINISTRATION OF PATIENT-FOCUSED HEALTH RISK ASSESSMENT INSTRUMENT (EG, HEALTH HAZARD APPRAISAL) WITH SCORING AND DOCUMENTATION, PER STANDARDIZED INSTRUMENT [facility] ADMINISTRATION OF PATIENT-FOCUSED HEALTH RISK ASSESSMENT INSTRUMENT (EG, HEALTH HAZARD APPRAISAL) WITH SCORING AND DOCUMENTATION, PER STANDARDIZED INSTRUMENT [facility] NEUROPSYCHOLOGICAL TESTING (EG, [place] CARD SORTING TEST), ADMINISTERED BY A COMPUTER, WITH QUALIFIED HEALTH POULTRY BREEDER INTERPRETATION AND REPORT [facility] PSYCHIATRIC EVALUATION OF HOSPITAL RECORDS, OTHER PSYCHIATRIC REPORTS, PSYCHOMETRIC AND/OR PROJECTIVE TESTS, AND OTHER ACCUMULATED DATA FOR MEDICALDIAGNOSTIC PURPOSES [facility] PURE TONE AUDIOMETRY (THRESHOLD), AUTOMATED; AIR ONLY [facility] ADMINISTRATION OF PATIENT-FOCUSED HEALTH RISK ASSESSMENT INSTRUMENT (EG, HEALTH HAZARD APPRAISAL) WITH SCORING AND DOCUMENTATION, PER STANDARDIZED INSTRUMENT [facility] ONLINE ASSESS &MANAG SERV PROVIDE,A QUAL NONPHYS HCP TO AN ESTABLISHED PAT/GUARDIAN,NOT ORIGINAT FRM RELAT ASSESS &MANAG SERV PROVIDE W/IN THE PREV 7 DAYS,USE THE [employer] NETWORK DoD TELE ASSESS & MGT SRV PROV QUAL NONPHYS HLTH CARE PRO TO EST PAT,PARENT,GUARD NOT ORIG REL ASSESS & MGT SRV PROV W/IN PREV 7 DAYS NOR LEAD ASSESS & MGT SRV/PX W/IN NXT 24 HR/SOON APT;5-10 MIN MED DIS [facility] Psychiatric Evaluation Review of Records and Reports Psychiatric Evaluation Review of Records and Reports [id number] HERRERA LINDA Physical Medicine Physical Therapy Re-Evaluation Physical Medicine Physical Therapy Re-Evaluation 43246 SUKI GOMEZ Physical Therapy: ___ Se ion Segments, 15 Minutes Each Physical Therapy: ___ Session Segments, 15 Minutes Each [id number] 019 SUKI GOMEZ Exercises A isted Exercises For ROM Exercises Assisted [place]ercises For ROM 88374 019 SUKI GOMEZ Physical Medicine Physical Therapy Re-Evaluation Physical Medicine Physical Therapy Re-Evaluation 09060 019 SUKI GOMEZ Exercises A isted Exercises For ROM Exercises [place] 49813 019 SUKI GOMEZ Physical Therapy: ___ Se ion Segments, 15 Minutes Each Physical Therapy: ___ Session Segments, 15 Minutes Each 58654 019 SUKI GOMEZ Physical Medicine Physical Therapy Re-Evaluation Physical Medicine Physical Therapy Re-Evaluation 75832 019 SUKI GOMEZ Physical Therapy: ___ Se ion Segments, 15 Minutes Each Physical Therapy: ___ Session Segments, 15 Minutes Each 32123 019 SUKI GOMEZ Exercises A isted Exercises For ROM Exercises Assisted Exercises For ROM 75760 019 SUKI GOMEZ Physical Medicine Physical Therapy Re-Evaluation Physical Medicine Physical Therapy Re-Evaluation 72799 019 SUKI GOMEZ Exercises A isted Exercises For ROM Exercises Assisted [place] 07951 019 SUKI GOMEZ Internet Med Svc Qual Nonphys Healthcare Prof Estab Patient Internet Med Svc Qual Nonphys Healthcare Prof Estab Patient 40508 018 [place] Threshold Audiogram (Pure Tone) Automated Threshold Audiogram (Pure Tone) Automated 0208T 018 DRISS WATTS Internet Med Svc Qual Nonphys Healthcare Prof Estab Patient Internet Med Svc Qual Nonphys Healthcare Prof Estab Patient 23755 018 [place] Injection, ketorolac tromethamine, per 15 mg 018 MARLO SR [facility] Injection, methylprednisolone acetate, [address] Supervised Injection Intramuscular Supervised Injection Intramuscular 88980 018 MARLO SR Psychiatric Evaluation Review of Records and Reports Psychiatric Evaluation Review of Records and Reports 52715 018 MAGALYS MARTINEZ [facility] Psychometric Neuropsych Testing Battery Admin By Computer Psychometric Neuropsych Testing Battery Admin By Computer 40343 018 HENRIQUE VALENCIA [facility] Threshold Audiogram (Pure Tone) Automated Threshold Audiogram (Pure Tone) Automated 0208T 017 KOKO JARQUIN [facility] Internet Med Svc Qual Nonphys Healthcare Prof Estab Patient Internet Med Svc Qual Nonphys Healthcare Prof Estab Patient 16215 017 [place] Non-Physician Phone Call To Patient/Provider Brief (5-10min) Non-Physician Phone Call To Patient/Provider Brief (5-10min) [address] Supervised Injection Intramuscular Antibiotic Supervised Injection Intramuscular Antibiotic 51325 015 EMY MALONE [facility] Threshold Audiogram (Pure Tone) Automated Threshold Audiogram (Pure Tone) Automated 0208T 015 ELIZABETH PABLO Non-Physician Phone Call To Patient/Provider Brief (5-10min) Non-Physician Phone Call To Patient/Provider Brief (5-10min) 79041 ISA WALLS [facility] Internet Med Svc Qual Nonphys Healthcare Prof Estab Patient Internet Med Svc Qual Nonphys Healthcare Prof Estab Patient [address] [place] A e ment & Intervention Blood Pre ure Measured Assessment & Intervention Blood Pressure Measured 2000F BERTRAM MIRANDA [facility] ECG 12-Lead With Interpretation And Report ECG 12-Lead With Interpretation And Report 78286 MARLO SR 12-lead EKG reviewed and shows normal sinus rhythm with a rate of 71. The IN, QRS, QT interval, axis, and ST segment are normal. Confirmed results with Dr. Kirk. [facility] Psychiatric Evaluation Review of Records and Reports Psychiatric Evaluation Review of Records and Reports 25567 HERRERA LINDA [facility] Brief communication technology-based service, e.g. virtual check-in, by a physician or other qualified health care profe ional who can report evaluation and management services, provided to an established patient, not originating from a related E/M service provided within the previous 7 days nor leading to an E/M service or procedure within the next 24 hours or soonest available appointment; 5-10 minutes of medical discu URI Bland/CONRADO5 telephonic assessments visit lasted 20 minutes. [facility] Brief communication technology-based service, e.g. virtual check-in, by a physician or other qualified health care profe ional who can report evaluation and management services, provided to an established patient, not originating from a related E/M service provided within the previous 7 days nor leading to an E/M service or procedure within the next 24 hours or soonest available appointment; 5-10 minutes of medical discu ion LIEBACK, XAVIER [facility] Brief communication technology-based service, e.g. virtual check-in, by a physician or other qualified health care profe ional who can report evaluation and management services, provided to an established patient, not originating from a related E/M service provided within the previous 7 days nor leading to an E/M service or procedure within the next 24 hours or soonest available appointment; 5-10 minutes of medical discu URI Bland Only telephonic assessment; visit lasted 15 minutes. [facility] Social History Combined list of available smoking, tobacco, and other social history from Department of Defense and Veterans Affairs facilities. Social History Type Response Date Comment [facility] e Sex Representation Male (finding) 11/30/2020 Un known Organization Tobacco Frequent/Daily exposure to secondhand smoke in indoor/confined spaces No. Cigarette use: Never-cigarette user. Other Tobacco use: Yes-current everyday other tobacco user (not cigarettes). +E-cigarettes use (1 pack per week) since 2012. Ambulatory Pharmacy Sexual Orientation Ambula tory Pharmacy Gender identity Ambulator y Pharmacy This section is an empty social history section. DoD Assessment and Plan Combined list of future care activities from Department of Defense and Veterans Affairs facilities (e.g., assessment and plan notes, appointments, orders, and referrals). Additional future care activities may be listed in the Plan of Care section. 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 SM present for virtual encounter. All age/gender specific CPS IAW USPSTF are up to date. ? IMR-?Green. Profile- None Active. [facility], abnormal EKG, and Leukopenia (monitoring purposes and F/U). ? Indeterminate WWQ. ? This MHA/PHA is for screening purposes only, and is Not to replace a face to face appointment with PCM or other specialty care?if needed. SM was informed that?if there are any?health concerns,?it is the SM's responsibility to schedule an appointment with PCM or specialty?care for evaluation and management. ? 2.?Abnormal EKG finding Continue F/U with PCM and/or Cardiology for evaluation. Seek immediate medical care/ER for persistent chest pain/pressure > 5 minutes, persistent palpitations, SOB, L arm pain/numbness, jaw pain/numbness, lightheadedness/nausea/dizzines s (if accompanied by other mentioned cardiac symptoms) are noted.? ? 3.?PFO - Patent foramen ovale Continue F/U with Cardiology as needed. Seek immediate medical care/ER for persistent chest pain/pressure > 5 minutes, persistent palpitations, SOB, L arm pain/numbness, jaw pain/numbness, lightheadedness/nausea/dizzines s (if accompanied by other mentioned cardiac symptoms) are noted.? ? 4.?Leukopenia F/U with Hematology referral for evaluation. 5.?Essential hypertension Continue Irbesartan?as prescribed along with healthy diet limiting caffeine?/sodium, regular exercise, and achieving/maintaining?a healthy weight; continue monitoring BP and record readings; reports consistently elevated readings equal to or higher than 140/90; continue F/U with PCM for management. 6.?Nicotine dependence Nicotine?cessation highly encouraged/advised; F/U with PCM/BHOP?as needed. 7.?LBP - Low back pain F/U with PCM as needed. Uri Tee CTR?TOWER CONTROL OPERATOR-C [facility] Provider Flight Medicine? [address] [place], [place]??[address] [facility] [phone] ? 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 SM Not present for Admin encounter. All age/gender specific CPS IAW USPSTF are up to date. ? IMR-?Green. Profile- Yes, FR for chest pain expires 21 December 2022. +WWQ. ? ? ? 2.?Chest pain Continue F/U with PCM or Cardiology for evaluation. Seek immediate medical care/ER for persistent chest pain/pressure > 5 minutes, SOB, L arm pain/numbness, jaw pain/numbness, lightheadedness/nausea/dizzines s (if accompanied by other mentioned cardiac symptoms) are noted.?F/U with PCM for increased/worsening chest pain episodes. ? 3.?Essential hypertension Continue Irbesartan?as prescribed along with healthy diet limiting caffeine?/sodium, regular exercise, and maintaining a healthy weight; continue monitoring BP and record readings; reports consistently elevated readings higher than 130/80; continue F/U with PCM for management. 4.?LBP - Low back pain Continue F/U with PCM for management. 01/21/2025 [id number] [facility] Functional Status Combined list of recent functional and cognitive assessments recorded at Department of Defense and Veterans Affairs (VA).VA Functional [place] Measurement (FIM) Scale: 1 = Total Assistance (Subject = 0% +), 2 = Maximal Assistance (Subject = 25% +), 3 = Moderate Assistance (Subject = 50% +), 4 = Minimal Assistance (Subject = 75% +), 5 = Supervision, 6 = Modified [place] (Device), 7 = Complete [place] (Timely, Safely). Assessment Date/Time Source Assessment Type Assessment Skill Assessment Score Assessment Details No data available for this section
--- OUTSIDE RECORDS SUMMARY | 2025-01-21 13:14 | XMS_ITS ---
Author Name [facility] Organization Unknown Encounters Encounter Type Encounter Reason Primary Diagnosis Location Date Ambulatory Radiculopathy, lumbar region bCODE 09/03/2021 Care Team Organization Name Specialty Phone Email Start Date End Da te bCODE 09/03/2021 05/06/2024 bCODE 09/03/2021 09/03/2021
--- OUTSIDE RECORDS SUMMARY | 2025-01-21 13:14 | XMS_ITS | Clinical Summary ---
Author Organization [facility]ly [facility] Address [address] [place] [address] Care Team Providers Care Forest Examiner Name Role Phone Unknown Primary Care Provider [phone] Social History Tobacco Use Types Packs/Day Years Used Date Smoking Tobacco: Never Assessed Sex and Gender Information Value Date Recorded Sex Assigned at Not on file Legal Sex Male 12:30 PM EST Gender Identity Not on file Sexual Orientation Not on file Plan of Treatment Health Maintenance Due Date Last Done Comments Hepatitis C Virus Screening 1990 HIV Screening 2003 DTaP/Tdap/Td Vaccines (1 - Tdap) 2009 Hepatitis B Vaccines (1 of 3 - 19+ 3-dose series) 2009 COVID-19 Vaccine (2023-2 5 season) 2024 Influenza Vaccine 04/18/2025 HPV Vaccines Aged Out No longer eligi ble based on patient's age to complete this topic Pneumococcal Vaccine: Pediat tsering (0-5 Years) and At-Risk Patients (6 to 49 Years) Aged Out No longer eligible b ased on patient's age to complete this topic Insurance [facility] Care Teams Forest Examiner Relationship Specialty Start Date End Date Unknown Unknow Provider Address PCP - General 08/23/21
== END 2025-01-21 12:04 | disposition home or self-care (01) ==
LOC: HO.HMCC 11:28
PROVIDERS: PCP Nurse Practitioner Family; Visit Provider Nurse Practitioner Family
DX: Z00.00 Encounter for general adult medical examination without abnormal findings (principal); I10 Essential (primary) hypertension; Z98.890 Other specified postprocedural states

== ENCOUNTER 2025-01-21 11:27 | Outpatient (REF) | payer OTHER, SELFPAY ==
--- NOTE | ~2025-01-21 | XR_ITS ---
EXAMINATION: XR LUMBOSACRAL SPINE CLINICAL INFORMATION: Z98.890 - Other specified postprocedural states COMPARISON: May 10, 2023. TECHNIQUE: Three views of the lumbosacral spine. FINDINGS: Embolus sclerosis at L5-S1. No acute cortical disruption. 2 mm retrolisthesis at L5-S1. No lytic or blastic lesions. XR/XR lumbar spine 2-3V IMPRESSION: Spondylosis at L5-S1 with grade 1 retrolisthesis. Electronically signed by: Rashel Luna MD 01/21/2025 01:09 PM EDT
--- OUTSIDE RECORDS SUMMARY | 2025-01-21 13:36 | XMS_ITS | Continuity of Care Document ---
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 BOTTLE Cancele d [id number] [phone] [id number] : 2023 0 Pharmac y Data Transac tion Service Facilit y irbesartan 150 mg oral tablet 1 tab(s), Oral, Daily, for blood pressure , # 90 tab(s), 3 total refill(s ), Maintena nce Oral (given by mouth) Ordered 2023 90.0 0310C-A F-C-66t h [facility]commend[facility] irbesartan 75 mg oral tablet 1 tab(s), Oral, Daily, for blood pressure , # 90 tab(s), 3 total refill(s ), Maintena nce Oral (given by mouth) Discont inued 02/27/20242023 90.0 0310C-A F-C-66t h MEDRecommendi Allergies, Adverse Reactions, Alerts Combined list of [...] Site Reaction Lot Number CVX Code [facility] Wellness Coordinator Status Comments Source influenza, injectable, quadrivalent- pf 2021 DAMEON [id number] 150 comple t ed Result Comment: Route: Unknown Manufactu rer: [facility] ([facility]) 0310C-A F-C-66t h [employer] influenza, injectable, quadrivalent- pf 2021 NATASHABROOKS [id number] 150 comple t ed Result Comment: Route: Unknown Manufactu rer: [facility] ([facility]) 0310C-A F-C-66t h [facility] [employer] Influenza, injectable, quadrivalent, preservative free 0 2021 [id number] 150 [facility] ([facility]) complet ed Influenza , injectabl e, quadrival ent, preservat quoc free DoD COVID Vaccine Moderna 2020 NATASHABROOKS [id number] 207 comple t ed Result Comment: Route: Unknown Manufactu rer: [facility] (MOD) 0310C-A F-C-66t h [facility] [employer]izwan[employer] SARS-COV-2 (COVID-19) vaccine, mRNA, spike protein, LNP, preservative free, 100 mcg or 50 mcg dose 2 2020 [id number] 207 Moderna US, Inc. (MOD) complet ed SARS-COV- 2 (COVID-19 ) vaccine, mRNA, spike protein, LNP, preservat quoc free, 100 mcg or 50 mcg dose DoD COVID Vaccine Moderna 2020 NATASHABROOKS [id number] 207 comple t ed Result Comment: Route: Unknown Manufactu rer: [facility] (MOD) 0310C-A F-C-66t h [facility] [employer] SARS-COV-2 (COVID-19) vaccine, mRNA, spike protein, LNP, preservative free, 100 mcg or 50 mcg dose 1 2020 [id number] 207 Moderna US, Inc. (MOD) complet ed [...] quoc free DoD influenza, injectable, quadrivalent 2018 [id number] 158 Seqirus complet ed influenza , injectabl e, quadrival ent 07/26/19 Given Ambulat ory Pharmac y influenza, injectable, quadrivalent 2018 [id number] 982 158 Se[employer]irus complet ed influenza , injectabl e, quadrival ent 07/26/19 Given Ambulat ory Pharmac y influenza, injectable, quadrivalent, contains preservative 1 2018 [id number] 982 158 Seqirus (SEQ) complet ed influenza , injectabl e, quadrival ent, contains preservat quoc DoD influenza, injectable, quadrivalent- pf 2017 [id number] 150 Seqirus complet ed influenza , injectabl e, quadrival ent-pf 06/29/18 Given Ambulat ory Pharmac y influenza, injectable, quadrivalent- pf 2017 [id number] 150 Seqirus complet ed influenza , injectabl e, quadrival ent-pf 06/29/18 Given Ambulat ory Pharmac y Influenza, injectable, quadrivalent, preservative free 1 2017 [id number] 150 Seqirus (SEQ) comple t ed Influenza , injectabl e, quadrival ent, preservat quoc free DoD anthrax vaccine 2017 [id number] 24 Emergent Biosolutions complet ed anthrax vaccine 04/01/18 Given Ambulat ory Pharmac y anthrax vaccine 2017 [id number] 24 Emergent [employer]olutions complet ed anthrax vaccine 04/01/18 Given Ambulat ory Pharmac y anthrax vaccine 2 2017 [id number] 24 Emergent Bio[employer] [place] (MIP) complet ed anthrax vaccine DoD typhoid Vi capsular polysaccharid e vac 2017 [id number] 101 sanofi pasteur complet ed typhoid Vi capsular polysacch aride vac 12/12/17 Given Ambulat ory Pharmac y anthrax vaccine 2017 [id number] 24 Emergent Biosolutions complet ed anthrax vaccine 12/12/17 Given Ambulat ory Pharmac y typhoid Vi capsular polysaccharid e vac 2017 [id number] 101 sanofi pasteur complet ed typhoid Vi capsular polysacch aride vac 12/12/17 Given Ambulat ory Pharmac y anthrax vaccine 2017 [id number] 24 Emergent Biosolutions complet ed anthrax vaccine 12/12/17 Given Ambulat ory Pharmac y anthrax vaccine 1 2017 [id number] 24 Emergent [employer] (MIP) complet ed anthrax vaccine DoD typhoid [...] preservat quoc DoD influenza, seasonal, injectable-pf 2015 [id number] 140 Seqirus complet ed influenza , seasonal, injectabl e-pf 07/19/16 Given Ambulat ory Pharmac y influenza, seasonal, injectable-pf 2015 [id number] 140 Seqirus complet ed influenza , seasonal, injectabl e-pf 07/19/16 Given Ambulat ory Pharmac y Influenza, seasonal, injectable, preservative free 2 2015 [id number] 140 Seqirus (SEQ) comple t ed Influenza [...] hepatitis B vaccine 3 2015 [id number] 104 [facility] complet ed hepatitis A and hepatitis B vaccine DoD hepatitis A-hepatitis B vaccine 2014 [id number] 104 GlaxoSmithKli ne complet ed hepatitis A-hepatit is B vaccine 07/27/15 Given Ambulat ory Pharmac y hepatitis A and hepatitis B vaccine 1 2014 [id number] 104 [facility] ([facility]) complet ed hepatitis A and hepatitis B vaccine DoD hepatitis A-hepatitis B vaccine 2014 [id number] 104 GlaxoSmithKli ne complet ed hepatitis A-hepatit is B vaccine 06/17/15 Given Ambulat ory Pharmac y influenza, seasonal, injectable-pf 2014 [id number] 140 CSL Behring complet ed influenza , seasonal, injectabl e-pf 06/17/15 Given Ambulat ory Pharmac y influenza, seasonal, injectable-pf 2014 [id number] 140 CSL Behring complet ed influenza , seasonal, injectabl e-pf 06/17/15 Given Ambulat ory Pharmac y hepatitis A-hepatitis B vaccine 2014 [id number] 104 GlaxoSmithKli ne complet ed hepatitis A-hepatit is B vaccine 06/17/15 Given Ambulat ory Pharmac y hepatitis A and hepatitis B vaccine 1 2014 [id number] 104 [employer] ([facility]) complet ed hepatitis A and hepatitis B vaccine DoD Influenza, seasonal, injectable, preservative free 1 2014 [id number] 140 CS [employer] Inc. (CS) complet ed Influenza , seasonal, injectabl e, preservat quoc free DoD adenovirus vaccine, live 2014 [id number] 9 143 Teva Pharmaceutica complet ed adenoviru s vaccine, live 06/11/15 Given Ambulat ory Pharmac y tetanus, diphtheria, acellular pertu is 2014 [id number] 115 GlaxoSmithKli ne complet ed tetanus, diphtheri a, acellular pertussis 06/11/15 Given Ambulat ory Pharmac y meningococcal A,C,Y,W-135 (MCV4P) 2014 [id number] 114 sanofi pasteur complet ed meningoco ccal A,C,Y,W-1 35 (MCV4P) 06/11/15 Given Ambulat ory Pharmac y poliovirus vaccine, inactivated 2014 L1442 10 sanofi pasteur complet ed polioviru s vaccine, inactivat ed 06/11/15 Given Ambulat ory Pharmac y adenovirus vaccine, live 2014 [id number] 9 143 Teva Pharmaceutica ls complet ed adenoviru s vaccine, live 06/11/15 Given Ambulat ory Pharmac y tetanus, diphtheria, acellular pertu is 2014 [id number] 115 [employer] md complet ed tetanus, diphtheri a, acellular pertussis 06/11/15 Given Ambulat ory Pharmac y meningococcal A,C,Y,W-135 (MCV4P) 2014 [id number] 114 sanofi pasteur complet ed meningoco ccal A,C,Y,W-1 35 (MCV4P) 06/11/15 Given Ambulat ory Pharmac y poliovirus vaccine, inactivated 2014 L1442 10 sanofi pasteur complet ed polioviru s vaccine, inactivat ed 06/11/15 Given Ambulat ory Pharmac y tuberculin purified protein derivative 2014 [id number] 96 sanofi pasteur complet ed tuberculi n purified protein derivativ e 06/11/15 Given Ambulat ory Pharmac y poliovirus vaccine, inactivated 1 2014 L1442 10 Sanofi Pasteur (PMC) complet ed polioviru s vaccine, inactivat ed DoD meningococcal polysaccharid e (groups A, C, Y and W-135) diphtheria toxoid conjugate vaccine (MCV4P) 1 2014 [id number] 114 Sanofi Pasteur (PMC) complet ed meningoco ccal polysacch aride (groups A, C, Y and W-135) diphtheri a toxoid conjugate vaccine (MCV4P) DoD tetanus toxoid, reduced diphtheria toxoid, and acellular pertu is vaccine, adsorbed 1 2014 [id number] 115 gantto (SKB) complet ed tetanus toxoid, reduced diphtheri a toxoid, and acellular pertussis vaccine, adsorbed DoD Adenovirus, type 4 and type 7, live, oral 1 2014 [id number] 9 143 [employer] (BRR) complet ed [...] Prevention' s HIV diagnostic algorithm. Refer to [facility] Lab Guide for additional information : [email or web address] [facility]/ [email or web address] x Testing performed by Kimberlee palafox [facility] EP[facility] Miscellan eous Sendouts Repository Sample Received (12/12/24 9:41 AM) 12/12 N [facility] Encounters Combined list of: 1) Encounters from Department of Veterans Affairs facilities going backup to the last 18 months, not all VA inpatient encounters are included; 2) Encounters from the Department of Defense facilities going backup to 280 months. Location Location Details Encounter Type Encounter Number Reason For Visit Attending Provider ADM Date DC Date Status Disposition [place] [address](Hea ring Conservat ion, BMT) OUTPATIENT [id number] ELIZABETH PABLOLalita 06/15 Released w/o Limitations [facility] [place] [address](H earing Conserv ation, BMT) [place] [address](Yadiel matology Surgery, [facility]) OUTPATIENT [id number] jesus KIRKFROYJc CHIRAG Lizarraga CHAVA 06/16 Released w/o Limitations [facility] [place] [address](D ermatol ogy Surgery , [facility]) [place] [address]([facility]) OUTPATIENT [id number] Late entry-S trep Prophyl axis EMY MALONE 06/22 Released w/o Limitations [facility] [place] [address](T [facility] [place] [address](LUPE Rollins) OUTPATIENT [id number] Notes Entered by: SUNDEEP GLOVER 21 Jul 2015 1307 ------- ------- ------- ------- -- Cold Pack SUNDEEP GLOVER 07/21 Released w/o Limitations [facility] [place] [address](Danny Rollins) [employer]([facility]) OUTPATIENT [id number] Notes Entered by: RUBINA ROJAS 04 Sep 2015 1449 ------- ------- ------- ------- -- [facility] RUBINA ROJAS 09/04 Released w/o Limitations [employer]([facility]) [employer]([facility]) OUTPATIENT [id number] Notes Entered by: BINA JOHN 04 Nov 2015 0909 ------- ------- ------- ------- -- Cough 364trs DARRIUS MILLER 11/04 Released w/o Limitations [employer]([facility]) [employer]([facility]) OUTPATIENT [id number] Ankle Pain [id number] 364TRS GIL HONG 11/13 Released w/o Limitations [employer]([facility]) [employer]([facility]) OUTPATIENT [id number] Notes Entered by: DARSHANA CUELLO 01 Feb 2016 0834 ------- ------- ------- ------- -- [facility] Record Review DARSHANA EVANGELISTA 01/31 Released w/o Limitations [employer]([facility]) [employer](Buster newton Team) TELE CONSULT [id number] Notes Entered by: MATT RENAE 03 Mar 2016 0929 ------- ------- ------- ------- -- RAFI FORTUNE 03/[employer](Rajani mccarty Team) [employer](BO C) OUTPATIENT [id number] Notes Entered by: CHRISTELLE ALVAREZ 26 Apr 2016 1002 ------- ------- ------- ------- -- PHA 1 year record review EVARISTO MARCANO 04/26 Released w/o Limitations [employer]([facility]) [employer](TIFFANI Willams HCP) OUTPATIENT [id number] annual audiogr am KIM DAVEY 08/26 Released w/o Limitations [employer](Chelsea Reyes HCP) [employer]([facility]uster newton Team) OUTPATIENT [id number] RAQUEL Gamino 08/26 Released w/o Limitations [employer](Rajani mccarty Team) [employer]([facility] Team) TELE CONSULT [id number] Notes Entered by: WOJCIECH OTERO 26 Apr 201706 ------- ------- ------- ------- -- Other-MARISOL Veloz 04/26 Medical Group(Rajani andradeOSS Health Team) [facility]) TELE CONSULT [id number] Notes Entered by: NORMA RODARTE 03 May 201715 ------- ------- ------- ------- -- RAYNE phelps health ed online with KRYSTYNA Arango 05/03 Medical Group([facility]) Medical Group(Dep [facility] Health Assessmen ts) OUTPATIENT [id number] [facility] KRYSTYNA ROOT 05/29 Released w/o Limitations [employer](D eployme Health Assess ents) Medical Group([facility] OUTPATIENT [id number] [facility] RAQUEL LEAVITT 05/29 Released w/o Limitations [employer](Rajani andradeOSS Health Team) [facility](JANNAN Debra Willams HCP) OUTPATIENT [id number] annual audiogr KOKO Ziegler 08/03 Released w/o Limitations [employer]([facility] Team) TELE CONSULT [id number] Notes Entered by: RAVEN BEARD 03 Aug 2017 1104 ------- ------- ------- ------- -- Lab Chelsea/RAVEN HERNDON 08/03 [facility] Group[facility] Team) OUTPATIENT [id number] LESLIE Nation 10/09 Released w/o Limitations [employer](Isabell traylor OM Team) [facility](Kuhn ders OM Team) TELE CONSULT [id number] Notes Entered by: Casi GOEL 10 Oct 2017 0730 ------- ------- ------- ------- -- Xray berry COLALZO CALLIE J 10/10 Referred for Appointment Medical Group(R aiders Team) [facility] Group([facility] TELE CONSULT [id number] Notes Entered by: BETTY HERNANDEZ 16 Oct 2017 1334 ------- ------- ------- ------- -- Closing REGULO Alexander 10/16 Medical Group([facility] Team) Medical Group([facility] Health Assessmen ts) OUTPATIENT [id number] Notes Entered by: THOR HERNANDEZ 07 Dec 2017 1608 ------- ------- ------- ------- -- Predepl oy/Qata r KRYSTYNA ROOT 12/07 Released w/o Limitations [employer](D eployme Health Assessm ents) [facility] Group([facility] Team) OUTPATIENT [id number] deploym ent fior ce - shoulde r injury no longer an issue DAVID RICE 12/11 Released w/o Limitations [employer]([facility] Team) Theater Facility OUTPATIENT [id number] Theater Provider 04/02 Released with Work/Duty Limitations Theater Facilit y Theater Facility OUTPATIENT [id number] Theater Provider 05/09 Released w/o Limitations Theater Facilit y [facility] Group([facility] Team) OUTPATIENT [id number] back and leg pain;wo rse in past 3 days MARLO SR 07/05 Released w/o Limitations [employer]([facility] Team) [facility] Group([facility] Team) OUTPATIENT [id number] sciatic a pain has worsene MARLO Quevedo 07/11 Released with Work/Duty Limitations [employer]([facility] Team) [facility] OUTPATIENT [id number] VIRT A - KRYSTYNA ROOT 07/31 Released w/o Limitations [employer](D eployme nt Health Assessm ents) [facility] Debra MccartyGoshen HCP) OUTPATIENT [id number] Notes Entered by: DRISS VINCENT 01 Aug 2018 1300 ------- ------- ------- ------- -- WALK IN ANNUAL 1330 DRISS WATTS 08/01 Released w/o Limitations [facility] HCP) Medical Group([facility] Team) OUTPATIENT [id number] VIRTUAL PHA MARLO SR 08/01 Released w/o Limitations [facility] [employer]([facility] Team) [facility] Team) TELE CONSULT [id number] Notes Entered by: Uriah SR 06 Aug 2018 1703 ------- ------- ------- ------- -- PHA concern BETTY COLE 08/07 [facility]( [facility] Team) OUTPATIENT [id number] VIRT-94 [phone], discuss PHA answers , booked off TCON MARLO SR 08/14 Released w/o Limitations [employer]([facility] Team) [facility]) OUTPATIENT [id number] Notes Entered by: THOR HERNANDEZ 03 Sep 2018 1402 ------- ------- ------- ------- -- KRYSTYNA STAUFFER 09/03 Released w/o Limitations [employer](D eployme nt Health Assessm ents) [facility]) OUTPATIENT [id number] Lumbar pain SUKI GOMEZ 09/25 Released w/o Limitations [facility](P [facility]ys[facility]) Medical Group([facility]hy [facility]) OUTPATIENT [id number] JASONSUKI KRAMER D 10/09 Released w/o Limitations [facility](P hysical Therapy Clinic) Medical Group([facility]) OUTPATIENT [id number] JASONSUKI KRAMER D 10/12 Released w/o Limitations [facility](P hysical Therapy Clinic) Medical Group([facility]) OUTPATIENT [id number] JASONSUKI KRAMER D 10/18 Released w/o Limitations [facility](P hysical Therapy Clinic) Medical Group([facility]hy [facility]) OUTPATIENT [id number] JASONSUKI KRAMER D 11/09 Released w/o Limitations [facility](P hysical Therapy Clinic) Medical Group(Buster netwon FH Team) OUTPATIENT [id number] sore throat cant hear out of both ears MARLO SR 01/09 Sick at Home/Quarter s Medical Group(Rajani mccarty FH Team) Medical Group(Buster newton FH Team) OUTPATIENT [id number] jhoan MARLO Jimenez 03/28 Released with Work/Duty Limitations [employer](Rajani mccarty FH Team) Medical Group(Bam hartley OM Team) TELE CONSULT [id number] Notes Entered by: Taya DURON 30 Jul 2019 0756 ------- ------- ------- ------- -- Special ty Referra ISA Castro 07/30 Medical Group(R aiders OM Team) Medical Group(TIFFANI Willams HCP) OUTPATIENT [id number] Audiogr MICHAEL Castro 08/07 Released w/o Limitations [employer](Chelsea Reyes HCP) Medical Group([facility]) OUTPATIENT [id number] [facility] KRYSTYNA ROOT 08/20 Released w/o Limitations [employer] Group(D eployme Health Assess ents) th Medical Group(Kuhn ders OM Team) OUTPATIENT [id number] Pirifor mis pain ongoing MARLO SR 08/27 Released with Work/Duty Limitations [employer](R aiders OM Team) Medical Group([facility]uhn ders OM Team) OUTPATIENT [id number] VIRTUAL PHA MARLO SR 08/31 Released with Work/Duty Limitations [employer](R aiders OM Team) Medical Group([facility] OM Team) TELE CONSULT [id number] Notes Entered by: Uriah SR 01 Sep 2019 0820 ------- ------- ------- ------- -- PHA concern KATHLEEN DERAS 09/01 Medical Group(R aiders OM Team) Medical Group([facility]ers OM Team) OUTPATIENT [id number] Notes Entered by: Rajani PAYNE 02 Sep 2019 1305 ------- ------- ------- ------- -- Walk in BP day 1 of 5 MERLYN MIRANDAJYOTSNA A 09/02 Released w/o Limitations [employer](R aiders OM Team) [facility] Group([facility] OM Team) OUTPATIENT [id number] Notes Entered by: NURIS GUADALUPE 03 Sep 2019 1259 ------- ------- ------- ------- -- walk in BP day 2 MIRANDA MERLYNJYOTSNA A 09/03 Released w/o Limitations [employer](R aiders OM Team) Medical Group([facility] OM Team) OUTPATIENT [id number] BP follow up MARLO SR 09/05 Released w/o Limitations [employer](R aiders OM Team) Medical Group([facility] OM Team) OUTPATIENT [id number] jhoan waMARLO Barry 03/18 Released with Work/Duty Limitations [employer](R aiders OM Team) [employer] [facility]) OUTPATIENT [id number] CONRADO [phone] URI TEE 09/21 Released w/o Limitations [employer](B [facility]) [employer]([facility]) OUTPATIENT [id number] AF [facility](A Complet ed)(GSU )(OD) URI TEE 05/04 Released w/o Limitations [employer]([facility]) [facility] Group([facility] Team A) TELE CONSULT [id number] Notes Entered by: REBECA GALVAN 27 Aug 2021 1008 ------- ------- ------- ------- -- JOSUÉ Santiago 08/27 Other Not Elsewhere Classified [facility]( [facility]) [facility] Team A) TELE CONSULT [id number] Notes Entered by: MU PIZARRO 08 Sep 2021 1540 ------- ------- ------- ------- -- U-Pro file Request XAVIER PIZARRO 09/08 Other Not Elsewhere Classified [facility]( [facility] Team A) [facility] Team A) OUTPATIENT [id number] Notes Entered by: NORMA NJ 30 Sep 2021 0808 ------- ------- ------- ------- -- ZENAIDA Luevano 09/30 Released w/o Limitations [employer]([facility] Team A) [facility]) TELE CONSULT [id number] Notes Entered by: MIGUEL ALEMAN 02 Nov 2021 1448 ------- ------- ------- ------- -- Profile Request MILAGRO SHEEHAN 11/02 [facility]) [facility] Group(Farrukh carballo [facility] Team A) TELE CONSULT [id number] Notes Entered by: MU PIZARRO 10 Nov 2021 1652 ------- ------- ------- ------- -- SHONNA Secure Msg: Health Record Update XAVIER PIZARRO 11/10 Other Not Elsewhere Classified [facility] Medical Group( anscom [facility] Team A) [facility]) TELE CONSULT [id number] Notes Entered by: MIGUEL ALEMAN 19 Jan 2022 1044 ------- ------- ------- ------- -- CONLV/ PROFILE MIGUEL ALEMAN 01/19 Other Not Elsewhere Classified [facility]) [facility] Medical [facility]) OUTPATIENT [id number] AF [facility] URI TEE 06/06 Released w/o Limitations [facility] Group(B [facility]) 0310A-AF- C-[employer] Between Visit [id number] 02/21 Discharge Disposition: Home or Self Care 0310A-A F-C-66t h [employer] 0310M-AF- C-[employer] [employer] Outpatient [id number] Encount er for other adminis trative examina tions FRANKLYN BARR 04/08 Discharge Disposition: Home or Self Care 0310M-A F-C-66t h [employer] 0310M-AF- C-[facility]th [employer] Outpatient [id number] Encount er for other adminis trative examina tions CHAKA CLAIREORCHAMANINDER 06/05 Discharge Disposition: Home or Self Care 0310M-A F-C-66t h [employer] 0310C-AF- C-[employer]th [employer] Dental [id number] GABO MATSON 07/24 Discharge Disposition: Home or Self Care 0-A -66t h [facility] [employer] [id number] AMDS Outpatient [id number] PRANAY HANSON 12/19 Discharge Disposition: Home or Self Care [id number] AMDS Procedures Combined list of: 1) Procedures from Department of Veterans Affairs facilities going back up to thelast 18 months, not all VA non-surgical procedures are included; 2) All procedures from the Department of Defense facilities. Procedure Procedure Type Code Date Perfomer Comments Sourc e WTEx4 -- [facility] Lumbar disectomy -- C [facility] Psychiatric evaluation of hospital records, other psychiatric reports, psychometric and/or projective tests, and other accumulated data for medical diagnostic purposes Psychiatric evaluation of hospital records, other psychiatric reports, psychometric and/or projective tests, and other accumulated data for medical diagnostic purposes [id number] 309[facility] BLOOD PRESSURE, MEASURED BLOOD PRESSURE, MEASURED - [facility] Therapeutic procedure, one or more areas, each 15 minutes; therapeutic exercises to develop strength and endurance, range of motion and flexibility Therapeutic procedure, one or more areas, each 15 minutes; therapeutic exercises to develop strength and endurance, range of motion and flexibility [id number] [facility] BRIEF COMM TECH-BASE SERV,E.G. VIRT CHK-IN,BY PHYS/OTH QUAL HCP,RPT E&M SERV,PROV TO EST PT,NOT ORIG FRM REL E/M SERV PROV W/IN PREV 7DAY NOR LEAD TO E/M SRV/PX W/IN NEXT 24HR/SOON SANG; 5-10 MIN DISC 022 [facility] ADMINISTRATION OF PATIENT-FOCUSED HEALTH RISK ASSESSMENT INSTRUMENT (EG, HEALTH HAZARD APPRAISAL) WITH SCORING AND DOCUMENTATION, PER STANDARDIZED INSTRUMENT 021 [facility] BRIEF COMM TECH-BASE SERV,E.G. VIRT CHK-IN,BY PHYS/OTH QUAL HCP,RPT E&M SERV,PROV TO EST PT,NOT ORIG FRM REL E/M SERV PROV W/IN PREV 7DAY NOR LEAD TO E/M SRV/PX W/IN NEXT 24HR/SOON SANG; 5-10 MIN DISC [facility] PSYCHIATRIC EVALUATION OF HOSPITAL RECORDS, OTHER PSYCHIATRIC REPORTS, PSYCHOMETRIC AND/OR PROJECTIVE TESTS, AND OTHER ACCUMULATED DATA FOR MEDICALDIAGNOSTIC PURPOSES [facility] ADMINISTRATION OF PATIENT-FOCUSED HEALTH RISK ASSESSMENT INSTRUMENT (EG, HEALTH HAZARD APPRAISAL) WITH SCORING AND DOCUMENTATION, PER STANDARDIZED INSTRUMENT [facility] ELECTROCARDIOGRAM, ROUTINE ECG WITH AT LEAST 12 LEADS; WITH INTERPRETATION AND REPORT [facility] BLOOD PRESSURE MEASURED (CKD)(DM) [facility] BLOOD PRESSURE MEASURED (CKD)(DM) [facility] ONLINE ASSESS &MANAG SERV PROVIDE,A QUAL NONPHYS HCP TO AN ESTABLISHED PAT/GUARDIAN,NOT ORIGINAT FR RELAT ASSESS &MANAG SERV PROVIDE W/IN THE PREV 7 DAYS,USE THE [employer] NETWORK [facility] TELE ASSESS & MGT SRV PROV QUAL NONPHYS HLTH CARE PRO TO EST PAT,PARENT,GUARD NOT ORIG REL ASSESS & MGT SRV PROV W/IN PREV 7 DAYS NOR LEAD ASSESS & MGT SRV/PX W/IN NXT 24 HR/SOON APT;5-10 MIN MED DIS [facility] PSYCHIATRIC EVALUATION OF HOSPITAL RECORDS, OTHER PSYCHIATRIC REPORTS, PSYCHOMETRIC AND/OR PROJECTIVE TESTS, AND OTHER ACCUMULATED DATA FOR MEDICALDIAGNOSTIC PURPOSES [facility] ADMINISTRATION OF PATIENT-FOCUSED HEALTH RISK ASSESSMENT INSTRUMENT (EG, HEALTH HAZARD APPRAISAL) WITH SCORING AND DOCUMENTATION, PER STANDARDIZED INSTRUMENT [facility] THERAPEUTIC PROCEDURE, 1 OR MORE AREAS, EACH 15 MINUTES; THERAPEUTIC EXERCISES TO DEVELOP STRENGTH AND ENDURANCE, RANGE OF MOTION AND FLEXIBILITY [facility] THERAPEUTIC PROCEDURE, 1 OR MORE AREAS, EACH 15 MINUTES; THERAPEUTIC EXERCISES TO DEVELOP STRENGTH AND ENDURANCE, RANGE OF MOTION AND FLEXIBILITY [facility] THERAPEUTIC PROCEDURE, 1 OR MORE AREAS, EACH 15 MINUTES; THERAPEUTIC EXERCISES TO DEVELOP STRENGTH AND ENDURANCE, RANGE OF MOTION AND FLEXIBILITY [facility] ADMINISTRATION OF PATIENT-FOCUSED HEALTH RISK ASSESSMENT INSTRUMENT (EG, HEALTH HAZARD APPRAISAL) WITH SCORING AND DOCUMENTATION, PER STANDARDIZED INSTRUMENT [facility] ONLINE ASSESS &MANAG SERV PROVIDE,A QUAL NONPHYS HCP TO AN ESTABLISHED PAT/GUARDIAN,NOT ORIGINAT FRM RELAT ASSESS &MANAG SERV PROVIDE W/IN THE PREV 7 DAYS,USE THE [employer] NETWORK [facility] ADMINISTRATION OF PATIENT-FOCUSED HEALTH RISK ASSESSMENT INSTRUMENT (EG, HEALTH HAZARD APPRAISAL) WITH SCORING AND DOCUMENTATION, PER STANDARDIZED INSTRUMENT [facility] PURE TONE AUDIOMETRY (THRESHOLD), AUTOMATED; AIR ONLY [employer] ONLINE ASSESS &MANAG SERV PROVIDE,A QUAL NONPHYS HCP TO AN ESTABLISHED PAT/GUARDIAN,NOT ORIGINAT FRM RELAT ASSESS &MANAG SERV PROVIDE W/IN THE PREV 7 DAYS,USE THE [employer] NETWORK [employer] INJECTION, KETOROLAC TROMETHAMINE, PER 15 MG [facility] BRIEF EMOTIONAL/BEHAVIORAL ASSESSMENT (EG, DEPRESSION INVENTORY, ATTENTION-DEFICIT/HYP ERACTIVITY DISORDER [ADHD] SCALE), WITH SCORING AND DOCUMENTATION, PER STANDARDIZED INSTRUMENT [facility] ADMINISTRATION OF PATIENT-FOCUSED HEALTH RISK ASSESSMENT INSTRUMENT (EG, HEALTH HAZARD APPRAISAL) WITH SCORING AND DOCUMENTATION, PER STANDARDIZED INSTRUMENT [facility] ADMINISTRATION OF PATIENT-FOCUSED HEALTH RISK ASSESSMENT INSTRUMENT (EG, HEALTH HAZARD APPRAISAL) WITH SCORING AND DOCUMENTATION, PER STANDARDIZED INSTRUMENT [facility] NEUROPSYCHOLOGICAL TESTING (EG, [place] CARD SORTING TEST), ADMINISTERED BY A COMPUTER, WITH QUALIFIED HEALTH DIRECTOR OF INSTITUTIONAL SALES INTERPRETATION AND REPORT [facility] PSYCHIATRIC EVALUATION OF HOSPITAL RECORDS, OTHER PSYCHIATRIC REPORTS, PSYCHOMETRIC AND/OR PROJECTIVE TESTS, AND OTHER ACCUMULATED DATA FOR MEDICALDIAGNOSTIC PURPOSES [facility] PURE TONE AUDIOMETRY (THRESHOLD), AUTOMATED; AIR ONLY [facility] ADMINISTRATION OF PATIENT-FOCUSED HEALTH RISK ASSESSMENT INSTRUMENT (EG, HEALTH HAZARD APPRAISAL) WITH SCORING AND DOCUMENTATION, PER STANDARDIZED INSTRUMENT [facility] ONLINE ASSESS &MANAG SERV PROVIDE,A QUAL NONPHYS HCP TO AN ESTABLISHED PAT/GUARDIAN,NOT ORIGINAT FRM RELAT ASSESS &MANAG SERV PROVIDE W/IN THE PREV 7 DAYS,USE THE [employer] NETWORK DoD TELE ASSESS & MGT SRV PROV QUAL NONPHYS HLTH CARE PRO TO EST PAT,PARENT,GUARD NOT ORIG REL ASSESS & MGT SRV PROV W/IN PREV 7 DAYS NOR LEAD ASSESS & MGT SRV/PX W/IN NXT 24 HR/SOON APT;5-10 MIN MED DIS [facility] Psychiatric Evaluation Review of Records and Reports Psychiatric Evaluation Review of Records and Reports [id number] HERRERA LINDA Physical Medicine Physical Therapy Re-Evaluation Physical Medicine Physical Therapy Re-Evaluation 31883 SUKI GOMEZ Physical Therapy: ___ Se ion Segments, 15 Minutes Each Physical Therapy: ___ Session Segments, 15 Minutes Each [id number] SUKI GOMEZ Exercises A isted Exercises For ROM Exercises Assisted Exercises For ROM 21277 019 SUKI GOMEZ Physical Medicine Physical Therapy Re-Evaluation Physical Medicine Physical Therapy Re-Evaluation 77739 019 SUKI GOMEZ Exercises A isted Exercises For ROM Exercises Assisted Exercises For ROM 96571 019 SUKI GOMEZ Physical Therapy: ___ Se ion Segments, 15 Minutes Each Physical Therapy: ___ Session Segments, 15 Minutes Each 57835 019 SUKI GOMEZ Physical Medicine Physical Therapy Re-Evaluation Physical Medicine Physical Therapy Re-Evaluation 09399 019 SUKI GOMEZ Physical Therapy: ___ Se ion Segments, 15 Minutes Each Physical Therapy: ___ Session Segments, 15 Minutes Each 12637 019 SUKI GOMEZ Exercises A isted Exercises For ROM Exercises Assisted [place] 59134 019 SUKI GOMEZ Physical Medicine Physical Therapy Re-Evaluation Physical Medicine Physical Therapy Re-Evaluation 50268 019 SUKI GOMEZ Exercises A isted Exercises For ROM Exercises [place] 57029 019 SUKI GOMEZ Internet Med Svc Qual Nonphys Healthcare Prof Estab Patient Internet Med Svc Qual Nonphys Healthcare Prof Estab Patient [id number] 018 KRYSTYNA ROOT Threshold Audiogram (Pure Tone) Automated Threshold Audiogram (Pure Tone) Automated 0208T 018 DRISS WATTS [employer] Nonphys Healthcare Prof Estab Patient Internet Med Svc Qual Nonphys Healthcare Prof Estab Patient [id number] 018 KRYSTYNA ROOT Injection, ketorolac tromethamine, per 15 mg 018 [address] [facility] Injection, methylprednisolone acetate, [address] Supervised Injection Intramuscular Supervised Injection Intramuscular [address]20 [address] Psychiatric Evaluation Review of Records and Reports Psychiatric Evaluation Review of Records and Reports 63350 018 MAGALYS MARTINEZ [facility] Psychometric Neuropsych Testing Battery Admin By Computer Psychometric Neuropsych Testing Battery Admin By Computer [id number] 018 HENRIQUE VALENCIA [facility] Threshold Audiogram (Pure Tone) Automated Threshold Audiogram (Pure Tone) Automated 0208T 017 KOKO JARQUIN [facility] Internet Med S[employer] Qual Nonphys Healthcare Prof Estab Patient Internet Med Svc Qual Nonphys Healthcare Prof Estab Patient [id number] KRYSTYNA ROOT Non-Physician Phone Call To Patient/Provider Brief (5-10min) Non-Physician Phone Call To Patient/Provider Brief (5-10min) [address] Supervised Injection Intramuscular Antibiotic Supervised Injection Intramuscular Antibiotic 43537 015 EMY MALONE [facility] Threshold Audiogram (Pure Tone) Automated Threshold Audiogram (Pure Tone) Automated 0208T 015 ELIZABETH PABLO Non-Physician Phone Call To Patient/Provider Brief (5-10min) Non-Physician Phone Call To Patient/Provider Brief (5-10min) 63428 ISA WALLS [facility] Internet [employer] Svc Qual Nonphys Healthcare Prof Estab Patient Internet Med Svc Qual Nonphys Healthcare Prof Estab Patient [id number] KRYST[address] ROOT A e ment & Intervention Blood Pre ure Measured Assessment & Intervention Blood Pressure Measured 2000F BERTRAM MIRANDA [facility] ECG 12-Lead With Interpretation And Report ECG 12-Lead With Interpretation And Report [address] 12-lead EKG reviewed and shows normal sinus rhythm with a rate of 71. The MD, QRS, QT interval, axis, and ST segment are normal. Confirmed results with Dr. Kirk. [facility] Psychiatric Evaluation Review of Records and Reports Psychiatric Evaluation Review of Records and Reports 90795 HERRERA LINDA [facility] Brief communication technology-based service, e.g. virtual check-in, [...] Bland/CONRADO5 telephonic assessments visit lasted 20 minutes. [facility] Brief communication technology-based service, e.g. virtual check-in, [...] minutes of medical discu ion LIEBACK, XAVIER [facility] Brief communication technology-based service, e.g. virtual check-in, [...] Only telephonic assessment; visit lasted 15 minutes. [facility] Social History Combined list of available smoking, tobacco, and other social history from Department of Defense and Veterans Affairs facilities. 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 SM present for virtual encounter. All age/gender specific CPS IAW USPSTF are up to date. ? IMR-?Green. Profile- None Active. [facility]? PFO, abnormal EKG, and [...] F/U with PCM as needed. Uri Tee CTR?[facility] [place]? [employer] [place], [place]??[address] [facility] [phone] ? 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 01/21/2025 [id number] [facility] Functional Status Combined list of recent functional and cognitive assessments recorded at [facility] of Defense and Veterans Affairs (VA).VA Functional [place] Measurement (FIM) Scale: 1 = Total Assistance (Subject = 0% +), 2 = Maximal Assistance (Subject = 25% +), 3 = Moderate Assistance (Subject = 50% +), 4 = Minimal Assistance (Subject = 75% +), 5 = Supervision, 6 = Modified [place] (Device), 7 = Complete [place] (Timely, Safely). Assessment Date/Time Source Assessment Type Assessment Skill Assessment Score Assessment Details No data available for this section
--- OUTSIDE RECORDS SUMMARY | 2025-01-21 13:36 | XMS_ITS | Clinical Summary ---
Author Organization Formerly [facility] Address [address] [place] [address] Care Team Providers Care Flyer Maker Name Role Phone Unknown Primary Care Provider [phone] Social History Tobacco Use Types Packs/Day Years [...] patient's age to complete this topic Insurance [facility] Care Teams Flyer Maker Relationship Specialty Start Date End Date Unknown Unknow Provider Address PCP - General 08/23/21
== END 2025-01-21 11:28 | disposition home or self-care (01) ==
LOC: HO.HMGCX 11:27
PROVIDERS: PCP Nurse Practitioner Family; Visit Provider Nurse Practitioner Family
DX: Z00.00 Encounter for general adult medical examination without abnormal findings (principal); I10 Essential (primary) hypertension; Z98.890 Other specified postprocedural states
CPT/HCPCS: 72100; 96127; 99212

== ENCOUNTER → 2025-01-21 12:11 | Outpatient (BNV) | payer OTHER, SELFPAY | PROVIDERS: PCP Nurse Practitioner Family; Visit Provider Radiology Diagnostic Radiology | DX: M47.817 Spondylosis without myelopathy or radiculopathy, lumbosacral region (principal) | CPT/HCPCS: 72100 ==

== ENCOUNTER 2025-02-18 09:07 | Outpatient (REF) | payer OTHER, SELFPAY ==
--- OUTSIDE RECORDS SUMMARY | 2025-02-18 09:56 | XMS_ITS | Clinical Summary ---
Author Organization [facility] Address [address] [place] [address] Care Team Providers Care Traffic Officer Name Role Phone Unknown Primary Care Provider [phone] Social History Tobacco Use Types Packs/Day Years [...] patient's age to complete this topic Insurance [facility] Care Teams Traffic Officer Relationship Specialty Start Date End Date Unknown Unknow Provider Address PCP - General 08/23/21
[2025-02-18 13:06] LABS: Appearance Urine Clear; Color Urine Yellow; Glucose Urine UA Negative (Negative); Leukocyte Esterase Urine Negative (Negative); Nitrite Urine Negative (Negative); PH 6.5 (5.0-9.0); Specific Gravity - Urine 1.015 (1.005-1.025); Urine Blood Negative (Negative); Urine Ketones Negative (Negative); Urine Protein Negative (Neg-Trace)
[2025-02-18 13:11] LABS: MANUAL DIFF FLAG NO
[2025-02-18 13:35] LABS: Basophils Percent Auto 0.9 % (0-2); Eosinophils Absolute Auto 0.3 X10*3/uL (0.0-0.4); Eosinophils Percent Auto 6.7 % (0-4); Hematocrit 45.4 % (42.0-52.0); Hemoglobin 14.9 g/dl (14.0-18.0); Imm Gran Abs Auto 0.01 X10*3/uL (0.00-0.03); Imm Gran Pct Auto 0.2 % (0.0-0.4); Lymphocytes Absolute Auto 2.3 X10*3/uL (1.2-4.9); Lymphocytes Percent Auto 50.1 % (20-40); Mean Corpuscular HGB Conc 32.8 g/dl (31.0-36.0); Mean Corpuscular Hemoglobin 27.6 pg (27.0-33.0); Mean Corpuscular Volume 84.1 fL (80.0-98.0); Mean Platelet Volume 10.7 fL (9.4-12.4); Monocytes Absolute Auto 0.4 X10*3/uL (0.1-1.2); Monocytes Percent Auto 7.8 % (2-11); Neutrophils Absolute Auto 1.6 x10*3/uL (2.0-8.3); Neutrophils Percent Auto 34.3 % (45-73); Platelet Count 249 X10*3/uL (160-400); Red Cell Distribution Width 13.7 % (11.0-16.0); White Blood Count 4.5 X10*3/uL (4.8-10.8)
[2025-02-18 14:15] LABS: Alanine Aminotransferase 71 U/L (0-40); Albumin Level 4.5 g/dL (3.5-5.0); Alkaline Phosphatase 63 U/L (39-117); Anion Gap 10 (12-20); Aspartate Amino Transferase 62 U/L (5-37); Bilirubin Total 0.4 mg/dL (0.0-1.0); Blood Urea Nitrogen 16 mg/dL (9-16); Calcium 9.6 mg/dL (8.4-10.2); Carbon Dioxide 27 mmol/L (22-29); Chloride 105 mmol/L (96-108); Cholesterol 224 mg/dL (<200); Estimated Glomerular Filt Rate > 60; Glucose Fasting 95 mg/dL (60-99); HDL Cholesterol 42 mg/dL (>40); LDL Cholesterol Calculated 149 mg/dL (<100); Potassium 3.8 mmol/L (3.3-5.1); Sodium 138 mmol/L (135-145); Total Protein 7.3 g/dL (6.5-8.0); Triglycerides 169 mg/dL (<150)
[2025-02-18 14:33] LABS: TSH reflex Free T4 2.53 uIU/mL (0.32-4.0)
== END 2025-02-18 09:08 | disposition home or self-care (01) ==
LOC: HO.HMGCLDS 09:07
PROVIDERS: PCP Nurse Practitioner Family; Visit Provider Nurse Practitioner Family
DX: Z00.00 Encounter for general adult medical examination without abnormal findings (principal); I10 Essential (primary) hypertension
CPT/HCPCS: 36415; 80053; 80061; 81003; 84443; 85025

== ENCOUNTER 2025-02-20 08:36 | Outpatient (REF) | payer OTHER, SELFPAY ==
--- OUTSIDE RECORDS SUMMARY | 2025-02-20 09:01 | XMS_ITS | Clinical Summary ---
Author Organization [facility] Address [address] [place] [address] Care Team Providers Care City Councilman Name Role Phone Unknown Primary Care Provider Social History Tobacco Use Types Packs/Day Years [...] patient's age to complete this topic Insurance [facility] Care Teams City Councilman Relationship Specialty Start Date End Date Unknown Unknow Provider Address PCP - General 08/23/21
[2025-02-21 05:35] LABS: HBS Num1 105.98 mIU/mL (0-7.99); HBc Num1 0.33 S/CO (0.00-0.79); HBsAGNum1 0.44 S/CO (0.00-0.99); Hepatitis A Antibody IgM 0.17 Index (0-0.79); Hepatitis B Core Antibody Nonreactive (Nonreactive); Hepatitis B Surface Antigen Negative (Negative); ~HepC Num1 0.19 S/CO (0.00-0.79); ~Hepatitis A Antibody IgM Nonreactive (Nonreactive); ~Hepatitis B Surface Antibody REACTIVE (Nonreactive); ~Hepatitis C Antibody Nonreactive (Nonreactive)
== END 2025-02-20 08:37 | disposition home or self-care (01) ==
LOC: HO.HMGCLDS 08:36
PROVIDERS: PCP Nurse Practitioner Family; Visit Provider Nurse Practitioner Family
DX: R74.8 Abnormal levels of other serum enzymes (principal); E78.5 Hyperlipidemia, unspecified
CPT/HCPCS: 36415; 86704; 86706; 86709; 86803; 87340

== ENCOUNTER 2025-05-08 19:23 | Inpatient (IN) | payer OTHER, SELFPAY ==
[2025-05-08] VITALS (8 sets, daily range): BP systolic 129–169; BP diastolic 85–105; PULSE 101–157; RESP 14–20; TEMP 36.7; O2SAT 97–100; BMI 25.8
--- NOTE | ~2025-05-08 | CT_ITS ---
CLINICAL HISTORY: PE rule out CT angiography chest with contrast. With MIP MPR Postprocessing. Comparison: Chest x-ray from 05/08/2025 Findings: No central pulmonary embolism. Mild residual thymic tissue. Heart size is within limits of normal. Imaged aorta is unremarkable for technique and artifacts. Mild bibasilar atelectasis. No consolidation, pneumothorax, or pleural effusion. No acute osseous abnormality. Borderline steatotic change of the imaged liver in the partially imaged abdomen. Trace hiatal hernia. IMPRESSION: 1. No central pulmonary embolism. 2. No consolidation. This document has been electronically signed by: Marcelo Grewal MD on 05/08/2025 22:41:19
--- NOTE | ~2025-05-08 | XR_ITS ---
CLINICAL HISTORY: sob 1 view chest x-ray Comparison: None provided Findings: No consolidation, pneumothorax, pleural effusion. Cardiac silhouette is within limits of normal for AP technique. No acute fracture by one view chest x-ray. IMPRESSION: No consolidation. This document has been electronically signed by: Marcelo Grewal MD on 05/08/2025 20:44:56
--- NOTE | 2025-05-08 19:25 | ECG_ITS ---
Test Reason : cp Blood Pressure : */* mmHG Vent. Rate : 154 BPM Atrial Rate : * BPM P-R Int : * ms QRS Dur : 86 ms QT Int : 290 ms P-R-T Axes : * 24 238 degrees QTcB Int : 464 ms Atrial fibrillation with rapid ventricular response Minimal voltage criteria for LVH, may be normal variant ( [place] product ) ST & T wave abnormality, consider inferolateral ischemia Abnormal ECG No previous ECGs available Referred By: Karen Weber Electronically Signed By: RUMA STOKES MD
--- NOTE | 2025-05-08 19:28 | ED.GENADULT ---
[facility] - General Adult General Chief complaint: Chest Pain Stated complaint: chest tightness/heart racing Time Seen by Provider: 05/08/25 19:38 Source: patient Mode of arrival: ambulatory Limitations: no limitations History of Present Illness ED Provider: Dr. Barnes [facility] narrative: This is a 35-year-old male history of hypertension, dyslipidemia presented hospital today for evaluation of shortness of breath and on and off chest pain. Patient does feel palpitation in his chest. Patient is noted to be AFib RVR patient was brought back to room. Patient stated that this started around 730 pm he stated that he was laying down at what is occurred all of a sudden. Denies any fever denies any signs of infection or coughing. Patient states he does not have history of atrial fibrillation in the past. However he has echocardiogram and recent negative stress test. Patient denies any recent travel any recent surgical procedures. Denies any symptoms of volume loss. Related Data Previous Rx's ?Medication ?Instructions ?Recorded irbesartan 150 mg tablet 150 mg PO DAILY 90 days #90 tabs 04/21/25 apixaban 5 mg tablet (Eliquis) 5 mg PO BID #60 tabs 05/10/25 flecainide 50 mg tablet 100 mg (2 x 50 mg) PO BID #60 tabs 05/10/25 metoprolol succinate 25 mg 25 mg PO DAILY #30 tabs 05/10/25 tablet,extended release 24 hr Allergies Allergy/AdvReac Type Severity Reaction Status Date / Time No Known Allergies Allergy Verified 05/08/25 19:32 Review of Systems Review of Systems: Pertinent review of systems as mentioned in HPI. All other system otherwise negative. [facility] Past Medical History [facility] Narrative: Medical history as mentioned in [facility] Medical History (Updated 05/10/25 @ 10:00 by Puneet Parker MD) Atrial fibrillation with RVR FHx: atrial fibrillation Nerve root compression Lumbar back pain with radiculopathy affecting lower extremity Surgical History No pertinent past surgical history Family History Family History Father No problems noted. Mother No problems noted. Paternal Grandmother Cancer Heart attack Social History Social History Household Members: Friend(s) Housing: Other Housing Other:: [place] Do you presently have visiting nurse or other home services: No Alcohol intake: current Alcohol intake frequency: holidays/special occasions only Patient Tobacco Use Status: Current everyday Tobacco user Cigarette Packs Per Day: 0.25 Years Smoked: quit 2 weeks ago e-Cigarette/Vaping Use: Currently Using Second Hand Smoke Exposure: No service: Yes Current occupational status: employed Current occupation: [employer] Current occupational exposures/hazards: Yes Cognitive needs: No Hearing needs: No Vision needs: No Physical Exam ED Exam Exam: General: Pleasant, no distress, interacting appropriately Head: Normacephalic, atraumatic ENT: oral mucosa moist, neck supple, no tracheal deviation Cardiovascular: Tachycardia rate, irregular rhythm, no murmurs, rubbing, gallops Respiratory: CTAB, no wheeze, rales, rhonchi Gastrointestinal: Soft, non distended, non tender, non guarding Extremities: No limb pain or swelling, no calf tenderness Skin: Cool and clammy Psychiatric: Appropriate mood and thoughts Vital Signs: Vital Signs - 24 hr 05/08/25 19:30 05/08/25 19:44 05/08/25 19:47 Temperature 98.1 F Pulse Rate 152 H 157 H 137 H Respiratory Rate 20 14 Blood Pressure 169/105 H 129/100 H 146/93 H Pulse Oximetry 97 100 Oxygen Delivery Method Room Air Room Air 05/08/25 20:38 05/08/25 20:54 05/08/25 21:26 Temperature Pulse Rate 112 H 135 H 125 H Respiratory Rate Blood Pressure 144/88 H 138/85 145/92 H Pulse Oximetry Oxygen Delivery Method BMI result Body Mass Index 25.8 Course Course Course Narrative: This is a rapid medical exam performed by Barrie Weber NP: Additional HPI, ROS, PE not included below will be deferred to primary provider. Patient is a 35-year-old male with history of PFO, HTN, hx of abnormal EKG for which he has seen cardiology presenting to the ED with complaint of chest tightness, feels like heart is racing. 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 Plan: EKG, labs, CXR Medications Administered Discontinued Medications Generic Name Dose Route Start Last Admin Trade Name Freq PRN Reason Stop Dose Admin Apixaban 5 mg 05/08/25 22:45 05/10/25 10:07 Apixaban 5 Mg Tablet PO 5 mg BID NIGHAT Administration Aspirin 324 mg 05/08/25 20:53 05/08/25 21:39 Aspirin 81 Mg Tab.Chew PO 05/08/25 20:54 324 mg ONCE ONE Administration Diltiazem HCl 21 mg 05/08/25 19:38 05/08/25 19:44 Diltiazem Hcl 50 Mg/10 Ml Vial IVPUSH 05/08/25 19:39 21 mg ONCE ONE Administration Flecainide Acetate 150 mg 05/08/25 22:01 05/08/25 22:26 Flecainide Acetate 50 Mg Tablet PO 05/08/25 22:02 150 mg ONCE ONE Administration Flecainide Acetate 150 mg 05/09/25 09:02 05/09/25 09:20 Flecainide Acetate 50 Mg Tablet PO 05/09/25 09:03 150 mg ONCE ONE Administration Flecainide Acetate 150 mg 05/09/25 10:39 05/09/25 11:21 Flecainide Acetate 50 Mg Tablet PO 05/09/25 10:40 150 mg ONCE ONE Administration Flecainide Acetate 100 mg 05/10/25 09:00 05/10/25 10:06 Flecainide Acetate 50 Mg Tablet PO 100 mg BID NIGHAT Administration Sodium Chloride 500 mls @ 500 mls/hr 05/08/25 19:45 05/08/25 20:15 Ns IV 05/08/25 20:44 Infused .Q1H NIGHAT Infusion Metoprolol Tartrate 5 mg/ 55 mls @ 230 mls/hr 05/08/25 19:47 05/08/25 20:14 Sodium Chloride IV 05/08/25 20:01 Infused ONCE ONE Infusion Protocol Diltiazem HCl 125 mg/ Sodium 125 mls @ 0 mls/hr 05/08/25 20:30 05/09/25 09:06 Chloride IVCONT Infused .Q0M NIGHAT Titration Protocol Per Protocol Lactated Ringer's 1,000 mls @ 999 mls/hr 05/08/25 22:45 05/09/25 00:17 Lr IV 05/08/25 23:45 Infused .Q1H1M NIGHAT Infusion Iohexol 65 ml 05/08/25 21:39 05/08/25 21:40 Iohexol 350 Mg/Ml 100 Ml Infus..Btl IV 05/08/25 21:40 65 ml ONCE ONE Administration Metoprolol Succinate 50 mg 05/09/25 09:02 05/09/25 09:20 Metoprolol Succinate Er 50 Mg Tab.Er.24h PO 05/09/25 09:03 50 mg ONCE ONE Administration Protocol Metoprolol Succinate 25 mg 05/10/25 09:00 05/10/25 10:06 Metoprolol Succinate Er 25 Mg Tab.Er.24h PO 25 mg DAILY NIGHAT Administration Protocol Sodium Chloride 3 ml 05/09/25 00:00 05/10/25 10:07 0.9 % Sodium Chloride Flush 3 Ml Syringe IVFLUSH 3 ml QSHIFT NIGHAT Administration Medical Decision Making Medical Decision Making [facility] Narrative: This is a 35-year-old male history of hypertension presented hospital today for evaluation of AFib RVR. Patient was found to be tachycardic and 154. The patient initially was cool and clammy. He states that he is having some chest pain with shortness of breath. EKG does shows AFib RVR. Blood pressure is stable. I did give him a bolus of IV diltiazem. His heart rate did improve into the 110 and 120s. Did give patient 5 mg IV bolus on metoprolol. However this did not help with his rate. Patient was still tachycardic heart rates in the 130s. He was placed on a diltiazem drip at this time. We did pursue ACS workup including CBC chemistry troponin. Chest x-ray. No sign of electrolytes abnormality. Patient's TSH is normal. Troponin is negative. We will plan to repeat a troponin level. Aspirin provided to the patient. Patient stated that his chest pain has improved. On reassessment patient is no longer cool and clammy. We will pursue a CTA of the chest to rule out PE. Patient will be signed out to oncoming provider pending results of CT of the chest. Anticipate admission for AFib RVR. Differential Diagnosis Differential Diagnoses: The differential diagnosis associated with the presentation includes Pulmonary embolism, AFib RVR, cardiomyopathy, ACS Admission/Observation Consideration of admission/observation: Escalation of care including admission/observation considered Lab Data [facility] Lab Attestation statement: I reviewed the patient's lab results. 05/10/25 06:54 05/10/25 06:54 Labs: Lab Results 05/08/25 05/08/25 05/08/25 Range/Units 19:39 21:02 21:53 WBC 8.4 (4.8-10.8) X10*3/uL RBC 5.45 (4.60-5.80) X10*6/uL Hgb 15.4 (14.0-18.0) g/dl Hct 44.9 (42.0-52.0) % MCV 82.4 (80.0-98.0) fL MCH 28.3 (27.0-33.0) pg MCHC 34.3 (31.0-36.0) g/dl RDW 14.0 (11.0-16.0) % Plt Count 215 (160-400) X10*3/uL MPV 9.9 (9.4-12.4) fL Immature Gran % (Auto) 0.4 (0.0-0.4) % Neut % (Auto) 69.2 (45-73) % Lymph % (Auto) 18.1 L (20-40) % [place] % (Auto) 8.1 (2-11) % Eos % (Auto) 3.8 (0-4) % Baso % (Auto) 0.4 (0-2) % Lymph # (Auto) 1.5 (1.2-4.9) X10*3/uL [place] # (Auto) 0.7 (0.1-1.2) X10*3/uL Eos # (Auto) 0.3 (0.0-0.4) X10*3/uL Baso # (Auto) 0.0 (0.0-0.2) X10*3/uL Abs Immat Gran (auto) 0.03 (0.00-0.03) X10*3/uL Absolute Neuts (auto) 5.8 (2.0-8.3) x10*3/uL Absolute Nucleated RBC 0.000 (0.0-0.012) X10*3/uL Nucleated RBC % (auto) 0.0 (0.0-0.2) /100WBC Hold Blue Top SEE NOTE Sodium 141 (135-145) mmol/L Potassium 3.6 (3.3-5.1) mmol/L Chloride 106 (96-108) mmol/L Carbon Dioxide 23 (22-29) mmol/L Anion Gap 16 (12-20) BUN 16 (9-16) mg/dL Creatinine 1.47 H (0.5-1.4) mg/dL Estim Creat Clear Calc 74.7 Estimated GFR 55 Random Glucose 116 H (60-115) mg/dL Calcium 10.1 (8.4-10.2) mg/dL Magnesium 2.0 (1.6-2.6) mg/dL Total Bilirubin 0.5 (0.0-1.0) mg/dL AST 42 H (5-37) U/L ALT 57 H (0-40) U/L Alkaline Phosphatase 74 (39-117) U/L Troponin I High Sens < 2.7 8.3 D 7.8 (<3.5-35.0) ng/L Total Protein 7.7 (6.5-8.0) g/dL Albumin 4.8 (3.5-5.0) g/dL TSH 1.22 (0.32-4.0) uIU/mL Independent Interpretation I performed an independent interpretation of an: EKG and Rhythm Strip External Record Review External record reviewed: Office record Chronic Conditions Patient?s care impacted by: Hypertension Critical Care Time Critical Care Time Critical Care Time: Yes Total Critical Care Time: 50 Attestation: Time is exclusive of separately billable procedures. Time includes: direct patient care, patient reassessment, coordination of patient care, interpretation of data (laboratory data, pulse oximetry, arterial blood gases and chest xrays), review of patient's medical records, medical consultation and documentation of patient care. Procedures excluded from critical care time: central intravenous line placement and electrocardiography. Discharge Plan Discharge Clinical Impression: Atrial fibrillation with RVR Patient Disposition: Admitted As Inpatient Interventions: Admission Worksheet (ED) Last Done: 05/09/25 09:48 Discharge Date/Time: 05/09/25 16:40
[2025-05-08 19:44] LABS: MANUAL DIFF FLAG NO
[2025-05-08 19:45] LABS: Hematocrit 44.9 % (42.0-52.0); Hemoglobin 15.4 g/dl (14.0-18.0); Imm Gran Abs Auto 0.03 X10*3/uL (0.00-0.03); Imm Gran Pct Auto 0.4 % (0.0-0.4); Lymphocytes Absolute Auto 1.5 X10*3/uL (1.2-4.9); Mean Corpuscular HGB Conc 34.3 g/dl (31.0-36.0); Mean Corpuscular Hemoglobin 28.3 pg (27.0-33.0); Mean Corpuscular Volume 82.4 fL (80.0-98.0); NRBC Abs Auto 0.000 X10*3/uL (0.0-0.012); NRBC Pct Auto 0.0 /100WBC (0.0-0.2); Platelet Count 215 X10*3/uL (160-400); Red Blood Count 5.45 X10*6/uL (4.60-5.80); White Blood Count 8.4 X10*3/uL (4.8-10.8)
[2025-05-08] MEDS: Metoprolol Tartrate 5 MG in 0.9 % Sodium Chloride 50 ML 230 MG IV (19:59)
[2025-05-08 20:06] LABS: Alanine Aminotransferase 57 U/L (0-40); Albumin Level 4.8 g/dL (3.5-5.0); Alkaline Phosphatase 74 U/L (39-117); Anion Gap 16 (12-20); Aspartate Amino Transferase 42 U/L (5-37); Blood Urea Nitrogen 16 mg/dL (9-16); Calcium 10.1 mg/dL (8.4-10.2); Carbon Dioxide 23 mmol/L (22-29); Chloride 106 mmol/L (96-108); Creatinine Clr Calc Pharmacy 74.7; Estimated Glomerular Filt Rate 55; Magnesium 2.0 mg/dL (1.6-2.6); Potassium 3.6 mmol/L (3.3-5.1); Sodium 141 mmol/L (135-145); Total Protein 7.7 g/dL (6.5-8.0)
[2025-05-08 20:08] LABS: Troponin-I High Sensitivity < 2.7 ng/L (<3.5-35.0)
--- OUTSIDE RECORDS SUMMARY | 2025-05-08 20:11 | XMS_ITS ---
Author Name [facility] [place] Organization Unknown Encounters Encounter Type Encounter Reason Primary Diagnosis Location Date Ambulatory Radiculopathy, lumbar region [facility] 09/03/2021 Care Team Organization Name Specialty Phone Email Start Date End Da te [facility] 09/03/2021 05/06/2024 [facility] 09/03/2021 09/03/2021
--- NOTE | 2025-05-08 20:45 | PC.NURSE ---
late entry pt had ekg done in triage with showed rapid afib rhythm and pt taken from triage to ed28. changed into hospital gown and placed on monitor and storage bin tender at that time. 18g IV obtained to Genet lowry. pt felt cool/clammy, denied cp but stated feels fluttering/palpitations. pt states he has not experienced this before and does not recall hx afib rhythm. pt reports he was seen by a lpn medical assistant last year and dx with HTN. 500mL Bolus and IVP Dilt given per nov. HR improved slightly and pt verbalized feeling better. skin wpd. 5mg Metoprolol infused per nov. HR improved but remains in 110s-120s. BP WNL. Currently started on Diltiazem drip per nov. pt appears well at this time, nad. resp even and unlabored. denied ever feeling sob. urinated 2x in urinal total 1450mL UO. call correa within reach.
--- NOTE | 2025-05-08 21:25 | PC.NURSE ---
HR was sustaining 90s low 100s now noted to elevate 150s-160s then coming down to 120s. MD made aware. would like a repeat ekg. upon returning to room pt was taken to ct scan, will obtain ekg upon return. pt appeared well at this time skin wpd resp even and unlabored denies sob.
--- NOTE | 2025-05-08 21:29 | ECG_ITS ---
Test Reason : rhythm check Blood Pressure : */* mmHG Vent. Rate : 115 BPM Atrial Rate : * BPM P-R Int : * ms QRS Dur : 86 ms QT Int : 318 ms P-R-T Axes : * 26 252 degrees QTcB Int : 439 ms Atrial fibrillation with rapid ventricular response with premature ventricular or aberrantly conducted complexes T wave abnormality, consider inferolateral ischemia Abnormal ECG When compared with ECG of 08-May-2025 19:28, ST elevation has replaced ST depression in Anterior leads Referred By: Genevieve Barnes Electronically Signed By: RUMA STOKES MD
[2025-05-08 21:34] LABS: Troponin-I High Sensitivity 8.3 ng/L (<3.5-35.0)
[2025-05-08] MEDS: iohexoL 350 MG/ML 100 ML INFUS..BTL 65 ML IV (21:40)
--- NOTE | 2025-05-08 22:07 | PC.NURSE ---
flecainide not available in ED Pyxis. pharmacy notified. awaiting arrival to ed to administer.
[2025-05-08 22:16] LABS: Troponin-I High Sensitivity 7.8 ng/L (<3.5-35.0)
--- NOTE | 2025-05-08 22:34 | PM.IMHP ---
History of Present Illness Date of Service: 05/08/25 Chief Complaint: Palpitations This has a 35-year-old male with pertinent history of hypertension who presents to the emergency department for evaluation of palpitations. Patient states he had sudden onset of palpitations while he was resting in bed after work day, on the day of presentation. This has never happened before. Patient felt like his heart was racing/fluttering. Also associated with mild sweating and chest discomfort. Patient said he tried to go to urgent Care but it was closed so he came to the ER. No history of CAD, TIA or CVA. No history of diabetes mellitus. Is compliant with ARB for hypertension. No fever, chills, abdominal pain, changes in urinary or bowel habits. In the emergency department, patient was found to be in AFib with RVR and initiated on diltiazem drip. Cardiology was consulted who recommended loading with flecainide. Review of Systems Constitutional: Constitutional: Reports no additional constitutional complaints Cardiovascular: Cardiovascular: Reports rapid heart rate Respiratory: Respiratory: Reports no additional respiratory complaints Gastrointestinal: Gastrointestinal: Reports no additional gastrointestinal complaints Genitourinary: Genitourinary: Reports no additional male genitourinary complaints [facility] Medical History Nerve root compression Lumbar back pain with radiculopathy affecting lower extremity Family History Father No problems noted. Mother No problems noted. Paternal Grandmother Cancer Heart attack Surgical History No pertinent past surgical history Social History [facility] Alcohol intake: current Alcohol intake frequency: holidays/special occasions only Patient Tobacco Use Status: Former Tobacco user Cigarette Packs Per Day: 0.25 Years Smoked: quit 2 weeks ago Smoked in Last 30 Days: Yes e-Cigarette/Vaping Use: Currently Using Second Hand Smoke Exposure: No Use of substances other than those prescribed or required for medical reasons: No Advance Directives: No Advance Directives Information Provided: No service: Yes Current occupational status: employed Current occupation: [employer] Current occupational exposures/hazards: Yes Cognitive needs: No Hearing needs: No Vision needs: No Meds Allergies Allergy/AdvReac Type Severity Reaction Status Date / Time No Known Allergies Allergy Verified 05/08/25 19:32 Active Medications: Current Medications Diltiazem HCl 125 mg/ Sodium (Chloride) 125 mls @ 0 mls/hr IVCONT .Q0M NIGHAT; Protocol Last Titration: 05/08/25 20:54 Dose: 15 mg/hr, 15 mls/hr Physical Exam Vital Signs and Narrative: Vital Signs: Last Vital Signs Temp 98.1 F 05/08/25 19:30 Pulse 101 H 05/08/25 22:27 Resp 14 05/08/25 22:27 BP 144/92 H 05/08/25 22:27 Pulse Ox 100 05/08/25 22:27 O2 Del Method Room Air 05/08/25 22:27 BMI result Body Mass Index 25.8 Const: Other: Middle-aged male lying in bed in no distress Neck supple, no JVD Irregularly irregular, S1-S2 heard Regular breath sounds bilaterally, no wheezing or crackles appreciated Abdomen soft nontender, no guarding, no rigidity Patient is awake, alert and oriented to self, place, time and person ; no focal motor deficit Psych: Normal mood No pedal edema Results Labs 05/08/25 19:39 05/08/25 19:39 Labs: Laboratory Results - last 24 hr 05/08/25 19:39 MCV 82.4 MCH 28.3 MCHC 34.3 RDW 14.0 Plt Count 215 MPV 9.9 Immature Gran % (Auto) 0.4 Neut % (Auto) 69.2 Lymph % (Auto) 18.1 L [place] % (Auto) 8.1 Eos % (Auto) 3.8 Baso % (Auto) 0.4 Lymph # (Auto) 1.5 [place] # (Auto) 0.7 Eos # (Auto) 0.3 Baso # (Auto) 0.0 Abs Immat Gran (auto) 0.03 Absolute Neuts (auto) 5.8 Absolute Nucleated RBC 0.000 Nucleated RBC % (auto) 0.0 Hold Blue Top SEE NOTE Anion Gap 16 Estim Creat Clear Calc 74.7 Estimated GFR 55 Random Glucose 116 H Calcium 10.1 Magnesium 2.0 Total Bilirubin 0.5 AST 42 H ALT 57 H Alkaline Phosphatase 74 Total Protein 7.7 Albumin 4.8 TSH 1.22 Assessment and Plan (1) Atrial fibrillation with RVR: Status: Acute Plan This has a 35-year-old male with pertinent history of hypertension who presents to the emergency department for evaluation of palpitations. #. AFib with RVR, new diagnosis: Will admit patient with cardiac monitoring. Patient initiated on IV diltiazem drip in the ER. Cardiology was consulted from the ER and patient was loaded with p.o. flecainide by ER provider. Chads Vasc score 1, initiating Eliquis. TSH okay. Obtaining echocardiogram #. Hypertension: On irbesartan Med rec pending DVT prophylaxis: Eliquis Full code Admit as inpatient and will require two night minimum hospital stay for monitoring of heart rate, management of new onset AFib with RVR (as above), which is not possible in a lesser acute setting. Quality Stroke Does the patient have a stroke diagnosis?: No VTE Prior VTE?: No VTE Risk Level:: Medical - moderate - high VTE Device Contraindication: Treatment Not Indicated VTE Drug Contraindication: N/A - Med Ordered
[2025-05-08] MEDS: Lactated Ringers 1,000 ML 999 ML IV (23:16)
[2025-05-09] VITALS (11 sets, daily range): BP systolic 112–131; BP diastolic 61–95; PULSE 53–118; RESP 16; TEMP 36.1–36.8; O2SAT 96–100; BMI 25.7
--- NOTE | 2025-05-09 | ECG_ITS ---
Test Reason : afib Blood Pressure : */* mmHG Vent. Rate : 54 BPM Atrial Rate : 54 BPM P-R Int : 182 ms QRS Dur : 96 ms QT Int : 444 ms P-R-T Axes : 47 16 59 degrees QTcB Int : 421 ms Sinus bradycardia T wave abnormality, consider lateral ischemia Abnormal ECG When compared with ECG of 08-May-2025 21:42, Sinus rhythm has replaced Atrial fibrillation Vent. rate has decreased by 61 bpm Nonspecific T wave abnormality has replaced inverted T waves in Inferior leads Referred By: Puneet Parker Electronically Signed By: PUNEET PARKER MD
--- NOTE | 2025-05-09 | PC.NURSE ---
HR sustaining 80s on monitor, diltiazem drip decreased.
--- NOTE | 2025-05-09 03:02 | PC.NURSE ---
This check writer salesperson assumed care of this Pt at this time. Pt appears to be sleeping at this time. Equal non-labored respirations. Dilt drip going in per MAR at 10mg/hr.
[2025-05-09 07:00] LABS: Hematocrit 44.2 % (42.0-52.0); Hemoglobin 14.8 g/dl (14.0-18.0); Mean Corpuscular HGB Conc 33.5 g/dl (31.0-36.0); Mean Corpuscular Hemoglobin 27.9 pg (27.0-33.0); Mean Corpuscular Volume 83.4 fL (80.0-98.0); NRBC Abs Auto 0.000 X10*3/uL (0.0-0.012); NRBC Pct Auto 0.0 /100WBC (0.0-0.2); Platelet Count 216 X10*3/uL (160-400); Red Blood Count 5.30 X10*6/uL (4.60-5.80); White Blood Count 6.5 X10*3/uL (4.8-10.8)
--- NOTE | 2025-05-09 07:00 | CA_ITS ---
Transthoracic Echocardiogram Patient (Last, First, Middle): Brad Ozuna, Gender: M Date of : 1990 Age: 35 Procedure Date: 05/09/2025 Procedure Type: Transthoracic Echocardiogram Location: ER Height: 180.34 cm Weight: 83.92 kg BSA: 2.04 m2 Heart Rate: 57 bpm BP: 113 / 61 mmHg Whitewasher: Referring MD: Carolina Rivera MD Machine Maintenance Servicer: Puneet Parker MD Symptoms: afib Study Quality: Good ECG Rhythm: Bradycardia Conclusions: - 1. Low normal LV ejection fraction 50-55% 2. Normal cardiac valvular Dopplers 3. Mildly dilated left atrium 4. Normal RV systolic pressure 5. No gross pericardial effusion Findings Left Ventricle Normal left ventricular cavity size. There is normal left ventricular wall thickness. The left ventricular systolic function is low normal. The visually estimated ejection fraction is between 50-55%. Spectral Doppler is indicative of a normal filling pattern. Right Ventricle Normal right ventricular cavity size and systolic function. Atria The left atrium is mildly dilated. There is no evidence of interatrial shunt. The right atrium is normal in size. Aortic Valve Normal aortic valve structure and function. There is no aortic valve stenosis. There is no aortic valve regurgitation. Mitral Valve Normal mitral valve structure and function. There is trace mitral valve regurgitation. There is no mitral valve stenosis. Pulmonic Valve The pulmonic valve is likely normal. There is trace pulmonic valve regurgitation. Tricuspid Valve Normal tricuspid valve structure. There is trace tricuspid valve regurgitation. The right ventricular systolic pressure is normal. The right ventricular systolic pressure is 26 mmHg. Normal right atrial pressure. There is no evidence of pulmonary hypertension. Great Vessels All visible segments of the aorta are normal in size. The pulmonary artery was not well visualized. There is no dilatation of the ascending aorta measuring 3.50 cm. Venous The inferior vena cava is normal in size and collapses greater than 50% with inspiration. Pericardium/Pleural There is no evidence of pericardial effusion. Measurements 2D Linear Measurements IVSd: 1.09 0.6-0.9/0.6-1.0 cm LVIDd: 4.62 3.9-5.3/4.2-5.9 cm LVIDd Index: 2.26 2.4-3.2/2.2-3.1 cm/m2 LVIDs: 3.09 2.0-3.6 cm LVPWd: 1.01 0.7-1.1 cm LA Diam: 3.30 2.7-3.8/3.0-4.0 cm LAIDs Index: 1.62 1.5-2.3 cm/m2 LV Mass: 213.05 67-162/88-224 g LV Mass Index: 104.44 43-95/49-115 g/m2 LVOT Diam: 2.40 3.0+(-)1.3 cm 2D Systolic Function EF 4C: 53.50 >55% EF 2C: 54.50 >55% EF BiP: 51.60 >55% Mitral Valve MV Pk E: 0.66 MV PK A: 0.37 MV Decel Time: 158.00 E/A: 1.80 E'Lateral: 9.79 E'Medial: 7.94 E/E' Med: 8.30 E/E' Lat: 6.70 PHT: 46.00 MVA PHT: 4.78 Decel [place]: 4.18 Aortic Valve AoV Pk Malachi: 0.89 AoV Mn Malachi: 0.67 AoV VTI: 0.23 AoV Pk Grad: 3.00 Aov Mn Grad: 2.00 ARCHANA Cont.VTI: 3.46 LVOT LVOT Pk Malachi: 0.82 LVOT Mn Malachi: 0.52 LVOT VTI: 0.18 LVOT Pk Grad: 3.00 LVOT Mn Grad: 1.00 LVOT Diam: 2.40 LVOT Area: 4.52 Diastolic Function MV Pk E: 0.66 MV Pk A: 0.37 E/A: 1.80 E'Medial: 7.94 E/E' Med: 8.30 E' Laterial: 9.79 E/E' Lat: 6.70 Right Ventricle TAPSE (mm): 19.40 TVS' Malachi: 9.57 Tricuspid Valve TR Pk Malachi: 2.10 TR Pk Grad: 18.00 RA Press: 8.00 RVSP: 26.00 Great Vessels Aorta Sinus of Valsalva: 3.40 2.0-3.5 cm Ao Asc: 3.50 2.1-3.4 cm Pulmonary Veins Pulm Vein S/D 1.10 Pulmonary Valve PV Pk Malachi: 0.62 Peak PV Grad: 2.00 Updated in Other Vendor System with Status of Final Puneet Parker MD electronically signed on 05/09/2025 4:06:31 PM with status of Final
[2025-05-09 07:04] LABS: Anion Gap 13 (12-20); Blood Urea Nitrogen 14 mg/dL (9-16); Carbon Dioxide 22 mmol/L (22-29); Chloride 109 mmol/L (96-108); Creatinine Clr Calc Pharmacy 99.8; Estimated Glomerular Filt Rate > 60; Potassium 3.4 mmol/L (3.3-5.1); Sodium 141 mmol/L (135-145)
[2025-05-09 07:11] LABS: Calcium 8.7 mg/dL (8.4-10.2)
--- NOTE | 2025-05-09 07:11 | PC.NURSE ---
This RN assumed care of patient @ 0700. Patient currently has Diltizam drip running at 10mg/hr in left 20G. Patient resting in bed Denies SOb, dizziness, lightheadedness Patient states I am comfortable but I still have the left sided chest pressure pressure rated 6/10 Pressure non radiating. 82 BPM 108/71
--- NOTE | 2025-05-09 09:04 | PM.CNCAR ---
History of Present Illness History of Present Illness Date of Service: 05/09/25 Requesting physician: Sid Shin Consult reason: atrial fibrillation Chief complaint: chest pain Narrative: I was consulted to see Brad in cardiology consultation today for new onset atrial fibrillation, highly symptomatic. Patient is a pleasant 35-year-old with prior history of hypertension well known to me as well as the PFO be patient has now had any cardiovascular issues including prior strokes. 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 Patient said yesterday he returned from work and took a nap and when he woke up from nap and was just in bed turned over to the left side suddenly felt his heart racing through his chest. He felt very unusual. He tried to sit up and then persisted with tachycardia and got symptomatic and had chest pressure. He immediately decided to come to the emergency room. When he came to the emergency room he was noted to be in atrial fibrillation rapid ventricular response. Because of his chest pressure he had troponins drawn which were negative. Patient was then given rate control with good response in his symptoms improved but still had persistent chest pressure and persistent atrial fibrillation. Hours at that point called and we decided to give him flecainide to try to get him out of atrial fibrillation into normal sinus rhythm, he got only 1 dose of 150 mg of flecainide. However he remains in atrial fibrillation. he says he feels better than when he started having the symptoms but still feels the mild pressure and says with minimal activity notices heart rate jumping up. Because of his new onset atrial fibrillation and did undergo a PE scan which was negative for pulmonary embolism. Patient little anxious about this new development. He has no prior history of atrial fibrillation. His blood pressures been well controlled. In the past he has been worked up because of chest pain and his cardiac workup few years ago and within few has been negative for any myocardial ischemia suggestive of CAD in his echo has been normal. No recent echocardiogram. Overall he has been doing well from cardiac perspective. No family history of atrial fibrillation. Denies any significant other stimulant use. Denies any recent changes out. Denies any heart failure symptoms or exertional anginal symptoms. Review of Systems Constitutional: Constitutional: Reports no additional constitutional complaints Eyes: Eyes: Reports no additional eye complaints Cardiovascular: Cardiovascular: Reports chest pain at rest, Reports rapid heart rate, Denies leg edema, Denies lightheadedness, Denies Loss of Consciousness, Reports palpitations and Denies dyspnea on exertion Respiratory: Respiratory: Denies no additional respiratory complaints and Denies dyspnea on exertion Gastrointestinal: Gastrointestinal: Denies no additional gastrointestinal complaints Genitourinary: Genitourinary: Denies no additional male genitourinary complaints Musculoskeletal: Musculoskeletal: Denies no additional musculoskeletal complaints Neurologic: Denies system reviewed and no additional complaints, except as documented Psychiatric: Psychiatric: Denies no additional psychiatric complaints Endocrine: Endocrine: Reports no additional endocrine complaints and Reports palpitations PMFSH Past Medical History Medical History Nerve root compression Lumbar back pain with radiculopathy affecting lower extremity Family History Family History Father No problems noted. Mother No problems noted. Paternal Grandmother Cancer Heart attack Surgical History Surgical History No pertinent past surgical history Social History Social History Housing: Condominium Alcohol intake: current Alcohol intake frequency: holidays/special occasions only Patient Tobacco Use Status: Former Tobacco user Cigarette Packs Per Day: 0.25 Years Smoked: quit 2 weeks ago Smoked in Last 30 Days: Yes e-Cigarette/Vaping Use: Currently Using Second Hand Smoke Exposure: No Use of substances other than those prescribed or required for medical reasons: No Advance Directives: No Advance Directives Information Provided: No Nutrition Risks: No Nutritional Risk service: Yes Current occupational status: employed Current occupation: [employer] Current occupational exposures/hazards: Yes Cognitive needs: No Hearing needs: No Vision needs: No Meds Allergies Allergy/AdvReac Type Severity Reaction Status Date / Time No Known Allergies Allergy Verified 05/08/25 19:32 Active Medications: Current Medications Acetaminophen (Acetaminophen 325 Mg Tablet) 650 mg PO Q6H PRN PRN Reason: Pain, Mild 1-3,fever,headache Apixaban (Apixaban 5 Mg Tablet) 5 mg PO BID [facility] Last Admin: 05/09/25 08:09 Dose: 5 mg Calcium Carbonate (Calcium Carbonate 750 Mg Tab.Chew) 750 mg PO Q4H PRN PRN Reason: Heartburn Diltiazem HCl 125 mg/ Sodium (Chloride) 125 mls @ 0 mls/hr IVCONT .Q0M [facility]; Protocol Last Titration: 05/09/25 02:02 Dose: 10 mg/hr, 10 mls/hr Magnesium Hydroxide (Milk Of Magnesia 30 Ml Oral.Susp) 30 ml PO DAILY PRN PRN Reason: Constipation Melatonin (Melatonin 3 Mg Tablet) 6 mg PO BEDTIME PRN PRN Reason: Insomnia Ondansetron HCl (Ondansetron Hcl 4 Mg/2 Ml Vial) 4 mg IVPUSH Q8H PRN PRN Reason: Nausea and Vomiting Sodium Chloride (0.9 % Sodium Chloride Flush 3 Ml Syringe) 3 ml IVFLUSH QSHIFT [facility] Last Admin: 05/09/25 07:05 Dose: Not Given Physical Exam Vital Signs: Vital Signs: Last Vital Signs Temp 97.6 F 05/09/25 05:12 Pulse 80 05/09/25 08:07 Resp 16 05/09/25 08:07 BP 112/69 05/09/25 08:07 Pulse Ox 96 05/09/25 08:07 O2 Del Method Room Air 05/09/25 08:07 BMI result Body Mass Index 25.8 Const: General: cooperative, comfortable, no acute distress, alert, awake, Physically active and anxious Nutritional Appearance: thin Orientation/consciousness: patient oriented x3 Limitations: no limitations HEENT: Head: Yes normocephalic and Yes atraumatic Neck: Neck: Yes trachea midline, Yes supple and Yes no JVD Resp: Effort & Inspection: normal respiratory effort Auscultation: clear to auscultation bilaterally Cardio: Jugular venous distension: no JVD Rhythm: abnormal rhythm irregularly irregular Heart sounds: S1 normal heart sound present, S2 normal heart sound present, no click, no gallops and no murmurs GI: Auscultation: normal bowel sounds Skin: General skin exam: no rashes or lesions noted Neuro: General: patient oriented x3 and no focal motor deficits Extrem: General: Yes no clubbing, cyanosis or edema Objective Labs and Meds 05/09/25 06:11 05/09/25 06:11 Lab results: Laboratory Results - last 24 hr 08/05/08/25 05/08/25 19:39 21:02 21:53 WBC 8.4 RBC 5.45 Hgb 15.4 Hct 44.9 MCV 82.4 MCH 28.3 MCHC 34.3 RDW 14.0 Plt Count 215 MPV 9.9 Immature Gran % (Auto) 0.4 Neut % (Auto) 69.2 Lymph % (Auto) 18.1 L [place]mer[place] % (Auto) 8.1 Eos % (Auto) 3.8 Baso % (Auto) 0.4 Lymph # (Auto) 1.5 [place] # (Auto) 0.7 Eos # (Auto) 0.3 Baso # (Auto) 0.0 Abs Immat Gran (auto) 0.03 Absolute Neuts (auto) 5.8 Absolute Nucleated RBC 0.000 Nucleated RBC % (auto) 0.0 Hold Blue Top SEE NOTE Sodium 141 Potassium 3.6 Chloride 106 Carbon Dioxide 23 Anion Gap 16 BUN 16 Creatinine 1.47 H Estim Creat Clear Calc 74.7 Estimated GFR 55 Random Glucose 116 H Calcium 10.1 Magnesium 2.0 Total Bilirubin 0.5 AST 42 H ALT 57 H Alkaline Phosphatase 74 Troponin I High Sens < 2.7 8.3 D 7.8 Total Protein 7.7 Albumin 4.8 TSH 1.22 05/09/25 06:11 WBC 6.5 RBC 5.30 Hgb 14.8 Hct 44.2 MCV 83.4 MCH 27.9 MCHC 33.5 RDW 13.7 Plt Count 216 MPV 10.2 Immature Gran % (Auto) Neut % (Auto) Lymph % (Auto) [place] % (Auto) Eos % (Auto) Baso % (Auto) Lymph # (Auto) [place] # (Auto) Eos # (Auto) Baso # (Auto) Abs Immat Gran (auto) Absolute Neuts (auto) Absolute Nucleated RBC 0.000 Nucleated RBC % (auto) 0.0 Hold Blue Top Sodium 141 Potassium 3.4 Chloride 109 H Carbon Dioxide 22 Anion Gap 13 BUN 14 Creatinine 1.10 Estim Creat Clear Calc 99.8 Estimated GFR > 60 Random Glucose 102 Calcium 8.7 D Magnesium Total Bilirubin AST ALT Alkaline Phosphatase Troponin I High Sens Total Protein Albumin TSH EKGs showed atrial fibrillation rapid ventricular response with voltage criteria for LVH with ST depression and T-wave inversions, suggestive of rate related ischemia. EKG 2. Showed better rate control with improved ST-depression. Assessment and Plan (1) Atrial fibrillation with RVR: Status: Acute Symptomatic atrial fibrillation this young man with prior history of hypertension most likely could be structural atrial fibrillation related to left atrial changes from his hypertension history, will need repeat echocardiogram to evaluate for cardiac structure and function once he is back in sinus rhythm. Also most likely due to recently increased stress and use of energy drinks. Patient's onset of atrial fibrillation was less than 24 hours. There has been 1 attempt to convert him chemically with flecainide but has failed. He still remains symptomatic with chest pressure and fast heart rate with little activity. I think he will benefit from rhythm control approach right away. Will attempt again another dose of flecainide 150 mg along with Toprol-XL 50 mg. He is on Eliquis which will be continued, CHADSVASc score of 1. continue Eliquis for some period of time in the future. If he does not converted with 1 dose of flecainide will give him Another dose of flecainide in an hour or so. If he fails to convert with 2nd dose of flecainide was that him up for synchronized cardioversion later in the afternoon as he had a light meal at around 07:30. Continue with oral anticoagulation with Eliquis. I discussed with him the need for synchronized cardioversion and pursuing rhythm control approach. Discussed risks, benefits, alternatives to cardioversion. He understood and agreed. We also discussed about long-term management of atrial fibrillation including need for oral anticoagulation daughter an intermediate term as well as potentially pursuing ablation therapy in the future. The ascending agreement. I have discussed about stress mitigation strategies as well as avoidance of using energy drinks and heavy caffeinated drinks as well as alcohol. He understands agrees. Continue his usual blood pressure medications for now. Will follow with you Procedures Date of Service Date of Service: 05/09/25
--- NOTE | 2025-05-09 09:04 | PHA.MEDREC ---
Addendum entered by Nabila Burrows RPh 05/09/25 09:10: Reviewed by [facility] Original Note: Pharmacy Consult ? Medication Reconciliation Pharmacy has completed the medication reconciliation. Patient reported he is only taking Irbesartan 150 mg daily. Patient stated he has not starred Duodote 2.1 mg-600mg injection and Iosat 130 mg ( he thinks we started him on it here). Patient last had his Irbesartan yesterday.
[2025-05-09] MEDS: Metoprolol Succinate ER 50 MG TAB.ER.24H PO (09:20)
--- NOTE | 2025-05-09 09:23 | PC.NURSE ---
magnolia morales finished Patient on rn cardiac cath afib @ 91 bpm bp 112/69 Flecainide and metoprolol administered per nov will reassess in one hour per
--- NOTE | 2025-05-09 09:31 | P.CONAN_ITS ---
HPI - Anesthesia Eval Consult details Narrative: 35 yr old male for cardioversion Afib with RVR with rates 150s upon arrival, improving to 88 with diltiazem drip, chest CTA neg for PE, electrolytes & CBC unremarkble PMFSH Active Problems Active Problems: All Active Problems Atrial fibrillation with RVR (Acute) Elevated liver enzymes (Acute) Dyslipidemia (Acute) Strep pharyngitis (Acute) Lower back pain (Acute) S/P lumbar microdiscectomy (Acute) Leukopenia (Acute) Preop cardiovascular exam (Acute) PFO (patent foramen ovale) (Acute) Chest discomfort (Acute) Abnormal EKG (Acute) Lumbar herniated disc (Acute) Nerve root compression (Acute) Hypertension (Acute) Lumbar back pain with radiculopathy affecting lower extremity (Acute) Physical exam (Acute) Past Medical History Medical History Nerve root compression Lumbar back pain with radiculopathy affecting lower extremity Family History Family History Father No problems noted. Mother No problems noted. Paternal Grandmother Cancer Heart attack Surgical History Surgical History No pertinent past surgical history Social History [facility] Alcohol intake: current Alcohol intake frequency: holidays/special occasions only Patient Tobacco Use Status: Former Tobacco user Cigarette Packs Per Day: 0.25 Years Smoked: quit 2 weeks ago Smoked in Last 30 Days: Yes e-Cigarette/Vaping Use: Currently Using Second Hand Smoke Exposure: No Use of substances other than those prescribed or required for medical reasons: No Advance Directives: No Advance Directives Information Provided: No Nutrition Risks: No Nutritional Risk service: Yes Current occupational status: employed Current occupation: [employer] Current occupational exposures/hazards: Yes Cognitive needs: No Hearing needs: No Vision needs: No Meds Allergies Allergy/AdvReac Type Severity Reaction Status Date / Time No Known Allergies Allergy Verified 05/08/25 19:32 Active Medications: Current Medications Acetaminophen (Acetaminophen 325 Mg Tablet) 650 mg PO Q6H PRN PRN Reason: Pain, Mild 1-3,fever,headache Apixaban (Apixaban 5 Mg Tablet) 5 mg PO BID [facility] Last Admin: 05/09/25 08:09 Dose: 5 mg Calcium Carbonate (Calcium Carbonate 750 Mg Tab.Chew) 750 mg PO Q4H PRN PRN Reason: Heartburn Diltiazem HCl 125 mg/ Sodium (Chloride) 125 mls @ 0 mls/hr IVCONT .Q0M [facility]; Protocol Last Titration: 05/09/25 09:06 Dose: Infused Magnesium Hydroxide (Milk Of Magnesia 30 Ml Oral.Susp) 30 ml PO DAILY PRN PRN Reason: Constipation Melatonin (Melatonin 3 Mg Tablet) 6 mg PO BEDTIME PRN PRN Reason: Insomnia Sodium Chloride (0.9 % Sodium Chloride Flush 3 Ml Syringe) 3 ml IVFLUSH QSHIFT [facility] Last Admin: 05/09/25 07:05 Dose: Not Given Exam Height,Weight and Vital Signs: Height 5 ft 11 in Weight 83.915 kg Last Vital Signs Temp 97.6 F 05/09/25 05:12 Pulse 88 05/09/25 09:20 Resp 16 05/09/25 08:07 BP 112/69 05/09/25 09:20 Pulse Ox 96 05/09/25 08:07 O2 Del Method Room Air 05/09/25 08:07 Pertinent Lab Results Pertinent Lab Results: Laboratory Tests 05/08/25 05/08/25 05/08/25 19:39 21:02 21:53 WBC 8.4 RBC 5.45 Hgb 15.4 Hct 44.9 MCV 82.4 MCH 28.3 MCHC 34.3 RDW 14.0 Plt Count 215 MPV 9.9 Immature Gran % (Auto) 0.4 Neut % (Auto) 69.2 Lymph % (Auto) 18.1 L [place] % (Auto) 8.1 Eos % (Auto) 3.8 Baso % (Auto) 0.4 Lymph # (Auto) 1.5 [place] # (Auto) 0.7 Eos # (Auto) 0.3 Baso # (Auto) 0.0 Abs Immat Gran (auto) 0.03 Absolute Neuts (auto) 5.8 Absolute Nucleated RBC 0.000 Nucleated RBC % (auto) 0.0 Hold Blue Top SEE NOTE Sodium 141 Potassium 3.6 Chloride 106 Carbon Dioxide 23 Anion Gap 16 BUN 16 Creatinine 1.47 H Estim Creat Clear Calc 74.7 Estimated GFR 55 Random Glucose 116 H Calcium 10.1 Magnesium 2.0 Total Bilirubin 0.5 AST 42 H ALT 57 H Alkaline Phosphatase 74 Troponin I High Sens < 2.7 8.3 D 7.8 Total Protein 7.7 Albumin 4.8 TSH 1.22 05/09/25 06:11 WBC 6.5 RBC 5.30 Hgb 14.8 Hct 44.2 MCV 83.4 MCH 27.9 MCHC 33.5 RDW 13.7 Plt Count 216 MPV 10.2 Immature Gran % (Auto) Neut % (Auto) Lymph % (Auto) [place] % (Auto) Eos % (Auto) Baso % (Auto) Lymph # (Auto) [place] # (Auto) Eos # (Auto) Baso # (Auto) Abs Immat Gran (auto) Absolute Neuts (auto) Absolute Nucleated RBC 0.000 Nucleated RBC % (auto) 0.0 Hold Blue Top Sodium 141 Potassium 3.4 Chloride 109 H Carbon Dioxide 22 Anion Gap 13 BUN 14 Creatinine 1.10 Estim Creat Clear Calc 99.8 Estimated GFR > 60 Random Glucose 102 Calcium 8.7 D Magnesium Total Bilirubin AST ALT Alkaline Phosphatase Troponin I High Sens Total Protein Albumin TSH Narrative Narrative: Procedure Date: 12/27/2022 Procedure Type: Transthoracic Echocardiogram Location: OP Height: 182.88 cm Weight: 76.66 kg BSA: 1.98 m2 Heart Rate: bpm BP: 138 / 82 mmHg 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 Normal LV ejection fraction of 60 65% with normal filling pattern 2. Normal cardiac valvular Dopplers 3. Normal RV systolic pressure 4. No gross pericardial effusion
--- NOTE | 2025-05-09 09:52 | PC.NURSE ---
Report given to Mary Ann HU @ [facility] Estimated transfer time 13:00
--- NOTE | 2025-05-09 11:10 | MHC.CM.PN ---
Addendum entered by Debi Chaudhari 05/09/25 11:17: Pt. to have cardioversion here, not transfer to [facility]. Original Note: [facility] care [facility] 05/09/25, Pt. 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 PCP confirmed: Dr. Eddy. DCP: pt. to be transferred to [facility] when bed is available for cardiac care. CM to follow for DC needs.
--- NOTE | 2025-05-09 14:41 | P.PNIM_ITS ---
Subjective Subjective Date of Service: 05/09/25 Interval History: No acute issues overnight. Converted to sinus rhythm on 2nd dose of flecainide Review of Systems Denies chest pain Denies shortness of breath Denies nausea vomiting diarrhea Denies fever chills Physical Exam 2 Vital Signs: Vital Signs: Last Vital Signs Temp 97.6 F 05/09/25 05:12 Pulse 53 05/09/25 14:03 Resp 16 05/09/25 14:03 BP 115/72 05/09/25 14:03 Pulse Ox 97 05/09/25 14:03 O2 Del Method Room Air 05/09/25 14:03 BMI result Body Mass Index 25.8 Const: Other: No acute distress Resp: Other: Clear to auscultation bilaterally no rales rhonchi or wheezes Cardio: Other: No S4; positive S1-S2; no S3 murmurs rubs or gallops GI: Other: Soft nontender nondistended normoactive bowel sounds Extrem: Other: No edema bilaterally Objective Data Active Medications Acetaminophen (Acetaminophen 325 Mg Tablet) 650 mg PO Q6H PRN PRN Reason: Pain, Mild 1-3,fever,headache Apixaban (Apixaban 5 Mg Tablet) 5 mg PO BID [facility] Last Admin: 05/09/25 08:09 Dose: 5 mg Documented By: CYNTHIA Calcium Carbonate (Calcium Carbonate 750 Mg Tab.Chew) 750 mg PO Q4H PRN PRN Reason: Heartburn Diltiazem HCl 125 mg/ Sodium (Chloride) 125 mls @ 0 mls/hr IVCONT .Q0M [facility]; Protocol Last Titration: 05/09/25 09:06 Dose: Infused Documented By: CYNTHIA Magnesium Hydroxide (Milk Of Magnesia 30 Ml Oral.Susp) 30 ml PO DAILY PRN PRN Reason: Constipation Melatonin (Melatonin 3 Mg Tablet) 6 mg PO BEDTIME PRN PRN Reason: Insomnia Sodium Chloride (0.9 % Sodium Chloride Flush 3 Ml Syringe) 3 ml IVFLUSH QSHIFT [facility] Last Admin: 05/09/25 07:05 Dose: Not Given Documented By: CYNTHIA Non-Admin Reason: IV Running Labs 05/09/25 06:11 05/09/25 06:11 Labs: Laboratory Results - last 24 hr 05/08/25 05/09/25 19:39 06:11 MCV 82.4 83.4 MCH 28.3 27.9 MCHC 34.3 33.5 RDW 14.0 13.7 Plt Count 215 216 MPV 9.9 10.2 Immature Gran % (Auto) 0.4 Neut % (Auto) 69.2 Lymph % (Auto) 18.1 L [place] % (Auto) 8.1 Eos % (Auto) 3.8 Baso % (Auto) 0.4 Lymph # (Auto) 1.5 [place] # (Auto) 0.7 Eos # (Auto) 0.3 Baso # (Auto) 0.0 Abs Immat Gran (auto) 0.03 Absolute Neuts (auto) 5.8 Absolute Nucleated RBC 0.000 0.000 Nucleated RBC % (auto) 0.0 0.0 Hold Blue Top SEE NOTE Anion Gap 16 13 Estim Creat Clear Calc 74.7 99.8 Estimated GFR 55 > 60 Random Glucose 116 H 102 Calcium 10.1 8.7 D Magnesium 2.0 Total Bilirubin 0.5 AST 42 H ALT 57 H Alkaline Phosphatase 74 Total Protein 7.7 Albumin 4.8 TSH 1.22 Assessment and Plan (1) Atrial fibrillation with RVR: Status: Acute (2) Hypertension: Status: Acute Plan This has a 35-year-old male with pertinent history of hypertension who presents to the emergency department for evaluation of palpitations. 1.AFib with RVR, -converted to normal sinus rhythm after 2nd dose of flecainide -Eliquis as ordered -continue to monitor on telemetry -2D echo pending -await cards input in a.m. 2.Hypertension -acceptable control on current therapy -adjust as indicated Eliquis Full code Admit as inpatient and will require two night minimum hospital stay for monitoring of heart rate, management of new onset AFib with RVR (as above), which is not possible in a lesser acute setting. Quality Stroke Does the patient have a stroke diagnosis?: No VTE Prior VTE?: No VTE Risk Level:: Medical - moderate - high VTE Device Contraindication: Treatment Not Indicated VTE Drug Contraindication: N/A - Med Ordered
[2025-05-09] MEDS: 0.9 % Sodium Chloride Flush 3 ML SYRINGE IVFLUSH ×2 (15:43→20:20)
[2025-05-10 03:49] VITALS: BP 127/79; PULSE 66; RESP 16; TEMP 36.1; O2SAT 98
[2025-05-10 07:06] VITALS: BP 131/72; PULSE 58; RESP 18; TEMP 36; O2SAT 99
[2025-05-10 07:20] LABS: MANUAL DIFF FLAG NO
[2025-05-10 07:27] LABS: Hematocrit 44.6 % (42.0-52.0); Hemoglobin 14.8 g/dl (14.0-18.0); Imm Gran Abs Auto 0.02 X10*3/uL (0.00-0.03); Imm Gran Pct Auto 0.3 % (0.0-0.4); Lymphocytes Absolute Auto 2.4 X10*3/uL (1.2-4.9); Mean Corpuscular HGB Conc 33.2 g/dl (31.0-36.0); Mean Corpuscular Hemoglobin 28.0 pg (27.0-33.0); Mean Corpuscular Volume 84.5 fL (80.0-98.0); NRBC Abs Auto 0.000 X10*3/uL (0.0-0.012); NRBC Pct Auto 0.0 /100WBC (0.0-0.2); Platelet Count 203 X10*3/uL (160-400); Red Blood Count 5.28 X10*6/uL (4.60-5.80); White Blood Count 6.1 X10*3/uL (4.8-10.8)
[2025-05-10 08:22] LABS: Alanine Aminotransferase 50 U/L (0-40); Albumin Level 4.1 g/dL (3.5-5.0); Alkaline Phosphatase 63 U/L (39-117); Aspartate Amino Transferase 26 U/L (5-37); Blood Urea Nitrogen 18 mg/dL (9-16); Calcium 8.8 mg/dL (8.4-10.2); Creatinine Clr Calc Pharmacy 80.7; Estimated Glomerular Filt Rate 60; Total Protein 6.7 g/dL (6.5-8.0)
[2025-05-10 08:34] LABS: Anion Gap 13 (12-20); Carbon Dioxide 23 mmol/L (22-29); Chloride 108 mmol/L (96-108); Potassium 4.1 mmol/L (3.3-5.1); Sodium 140 mmol/L (135-145)
--- NOTE | 2025-05-10 09:59 | PM.PNCARD ---
Subjective Subjective Date of Service: 05/10/25 Principal diagnosis: Paroxysmal atrial fibrillation Interval history: Patient was feeling a lot better. Remains in sinus rhythm. No issues with medications. Blood pressure is stable. Review of Systems Review of Systems Yes all other systems are reviewed and are negative Physical Exam Vital Signs: Last Vital Signs Temp 96.8 F 05/10/25 07:06 Pulse 58 05/10/25 07:06 Resp 18 05/10/25 07:06 BP 131/72 05/10/25 07:06 Pulse Ox 99 05/10/25 07:06 O2 Del Method Room Air 05/10/25 07:06 BMI result Body Mass Index 25.7 Const General: cooperative, comfortable, no acute distress, alert, awake, Physically active and anxious Nutritional Appearance: thin Orientation/consciousness: patient oriented x3 Limitations: no limitations HEENT Head: Yes normocephalic and Yes atraumatic Neck Neck: Yes trachea midline, Yes supple and Yes no JVD Resp Effort & Inspection: normal respiratory effort Auscultation: clear to auscultation bilaterally Cardio Jugular venous distension: no JVD Rhythm: abnormal rhythm irregularly irregular Heart sounds: S1 normal heart sound present, S2 normal heart sound present, no click, no gallops and no murmurs GI Auscultation: normal bowel sounds Skin General skin exam: no rashes or lesions noted Neuro General: patient oriented x3 and no focal motor deficits Extrem General: Yes no clubbing, cyanosis or edema Objective Labs and Meds 05/10/25 06:54 05/10/25 06:54 Lab results: Laboratory Results - last 24 hr 05/10/25 06:54 WBC 6.1 RBC 5.28 Hgb 14.8 Hct 44.6 MCV 84.5 MCH 28.0 MCHC 33.2 RDW 14.3 Plt Count 203 MPV 10.3 Immature Gran % (Auto) 0.3 Neut % (Auto) 42.0 L Lymph % (Auto) 39.0 [place] % (Auto) 7.4 Eos % (Auto) 10.6 H Baso % (Auto) 0.7 Lymph # (Auto) 2.4 [place] # (Auto) 0.5 Eos # (Auto) 0.6 H Baso # (Auto) 0.0 Abs Immat Gran (auto) 0.02 Absolute Neuts (auto) 2.5 Absolute Nucleated RBC 0.000 Nucleated RBC % (auto) 0.0 Sodium 140 Potassium 4.1 D Chloride 108 Carbon Dioxide 23 Anion Gap 13 BUN 18 H Creatinine 1.36 Estim Creat Clear Calc 80.7 Estimated GFR 60 Fasting Glucose 93 Calcium 8.8 Total Bilirubin 0.3 AST 26 ALT 50 H Alkaline Phosphatase 63 Total Protein 6.7 Albumin 4.1 Progress Note: A&P Assessment and plan (1) Paroxysmal atrial fibrillation: Status: Acute Assessment and Plan: Highly symptomatic atrial fibrillation converted to sinus rhythm with flecainide dose. Presented with chest pressure see below. Will start on flecainide 100 mg b.i.d.. 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 However given his ongoing treatment plan he was deployment will need to be postponed. Started Eliquis 5 mg b.i.d. for now given his risk factor of hypertension as well as mild left atrial enlargement. Continue aggressive blood pressure control. Avoidance of stimulants was discussed. Stress mitigation strategies were discussed. Will follow up in the clinic (2) Chest discomfort: Status: Acute Assessment and Plan: Patient was chest discomfort presentation atrial fibrillation most likely related to AFib with rapid ventricular response. However has some EKG changes which will need to be evaluated with a stress echocardiogram as an outpatient. Will follow up as outpatient in 4 weeks time, sooner p.r.n.. Thank you for allowing me to partake in his care Time Spent With Patient Time: Total time managing care of this patient today ____ minutes. Progress Note: Quality Stroke Does the patient have a stroke diagnosis?: No Procedures Date of Service Date of Service: 05/10/25
[2025-05-10] MEDS: Metoprolol Succinate ER 25 MG TAB.ER.24H PO (10:06)
[2025-05-10] MEDS: 0.9 % Sodium Chloride Flush 3 ML SYRINGE IVFLUSH (10:07)
--- NOTE | 2025-05-10 10:27 | P.DS_ITS ---
DS: Providers Provider Date of Service: 05/10/25 Date of admission: 05/08/25 22:30 Date of discharge: 05/10/25 Primary care physician: VANESA HauserP- Consults: 05/08/25 22:32 Consult to Cardiology Routine Consulting Provider: [facility] Reason for consultation: afib with rvr Has provider been notified: Yes DS: Diagnosis Discharge Diagnosis (1) Paroxysmal atrial fibrillation: Status: Acute (2) Chest discomfort: Status: Acute DS: Summary Hospital Course Hospital Course: 35-year-old male with pertinent history of hypertension who presents to the emergency department for evaluation of palpitations. Patient states he had sudden onset of palpitations while he was resting in bed after work day, on the day of presentation. This has never happened before. Patient felt like his heart was racing/fluttering. Also associated with mild sweating and chest discomfort. Patient said he tried to go to urgent Care but it was closed so he came to the ER. No history of CAD, TIA or CVA. No history of diabetes mellitus. Is compliant with ARB for hypertension. No fever, chills, abdominal pain, changes in urinary or bowel habits. In the emergency department, patient was found to be in AFib with RVR and initiated on diltiazem drip. Cardiology was consulted who recommended loading with flecainide. Hospital [facility] Patient admitted to telemetry. Received the 1st dose of flecainide in ER with a 2nd dose approximately 1 hour later and spontaneously converted back to sinus rhythm. Echo was done and read by Cardiology; EF 50% no acute abnormalities. He was seen again in the day of discharge by Cardiology who recommends Eliquis 5 mg twice daily along with flecainide 100 mg twice daily and metoprolol 25 mg daily. He will follow up with Cardiology in his PCP as scheduled Time Attestation Discharge Coordination Time (in mins): 35 Quality: Safe Use of Opioids Does Pt have an Active Cancer Diagnosis on the Problem List?: No Quality: Stroke Does the patient have a stroke diagnosis?: No Physical Exam Vital Signs: Vital Signs: Last Vital Signs Temp 96.8 F 05/10/25 07:06 Pulse 58 05/10/25 07:06 Resp 18 05/10/25 07:06 BP 131/72 05/10/25 07:06 Pulse Ox 99 05/10/25 07:06 O2 Del Method Room Air 05/10/25 07:06 BMI result Body Mass Index 25.7 Const: Other: No acute distress Resp: Other: Clear to auscultation bilaterally no rales rhonchi or wheezes Cardio: Other: No S4; positive S1-S2; no S3 murmurs rubs or gallops GI: Other: Soft nontender nondistended normoactive bowel sounds Extrem: Other: No edema bilaterally DS: Data Data Completed and Pending Labs on day of discharge: Laboratory Results - last 24 hr 05/10/25 06:54 WBC 6.1 RBC 5.28 Hgb 14.8 Hct 44.6 MCV 84.5 MCH 28.0 MCHC 33.2 RDW 14.3 Plt Count 203 MPV 10.3 Immature Gran % (Auto) 0.3 Neut % (Auto) 42.0 L Lymph % (Auto) 39.0 [place] % (Auto) 7.4 Eos % (Auto) 10.6 H Baso % (Auto) 0.7 Lymph # (Auto) 2.4 [place] # (Auto) 0.5 Eos # (Auto) 0.6 H Baso # (Auto) 0.0 Abs Immat Gran (auto) 0.02 Absolute Neuts (auto) 2.5 Absolute Nucleated RBC 0.000 Nucleated RBC % (auto) 0.0 Sodium 140 Potassium 4.1 D Chloride 108 Carbon Dioxide 23 Anion Gap 13 BUN 18 H Creatinine 1.36 Estim Creat Clear Calc 80.7 Estimated GFR 60 Fasting Glucose 93 Calcium 8.8 Total Bilirubin 0.3 AST 26 ALT 50 H Alkaline Phosphatase 63 Total Protein 6.7 Albumin 4.1 Discharge Plan Discharge Anticipated Discharge Date/Time: 05/10/25 10:25 Patient Disposition: Home, Self-Care Discharge Diagnosis: Paroxysmal atrial fibrillation Referrals: Myke Eddy, CLINICAL OPERATIONS MANAGER-BC [Primary Care Provider, Internal Medicine] - 1 Week Discharge Medications: New flecainide 50 mg Tablet 100 mg PO BID Qty: 60 2RF metoprolol succinate 25 mg Tablet Extended Release 24 Hr 25 mg PO DAILY Qty: 30 2RF Protocol: Hold for SBP/HR < HOLD for SBP < : 90 HOLD for HR < : 60 Eliquis 5 mg Tablet 5 mg PO BID Qty: 60 2RF Continued irbesartan 150 mg tablet 150 mg PO DAILY 90 Days Qty: 90 0RF Discharge Orders: Discharge Order (Routine); Ordered 05/10/25 Ordered By: Sid Shin Diet: Advance to usual diet Activity on Discharge: As tolerated Stand Alone Forms: Patient Portal Discharge page Print Language: Chilean Care Plan Goals: Continue taking Eliquis 5 mg twice daily; flecainide 100 mg twice daily and metoprolol [address] Parker's office will call you with a follow up appointment Health Concerns: Follow up with PCP next available. Continue these meds until your follow up with Cardiology; he will instruct you further Plan of Treatment: Return if you feel that your heart is racing or you develop any kind of chest pain Assessment: See discharge summary
--- NOTE | 2025-05-10 10:28 | MHC.CM.PN ---
Patient has been medically cleared for dc to home today, self care. IMM was addressed yesterday.
[2025-05-10 10:48] VITALS: BP 120/79; PULSE 70; RESP 18; TEMP 36; O2SAT 98
== END 2025-05-10 11:42 | disposition home or self-care (01) | DRG 310 ==
LOC: HO.ED 20:09 → HO.EDOVER 23:13 → HO.IMC 05-09 15:16
PROVIDERS: Registered Nurse Emergency; Admitting Provider Student in an Organized Health Care Education/Training Program; Emergency Provider Student in an Organized Health Care Education/Training Program; PCP Nurse Practitioner Family; Visit Provider Hospitalist
DX: I48.0 Paroxysmal atrial fibrillation (principal); F17.210 Nicotine dependence, cigarettes, uncomplicated; Z71.6 Tobacco abuse counseling; I10 Essential (primary) hypertension; E78.5 Hyperlipidemia, unspecified; Z79.899 Other long term (current) drug therapy
CPT/HCPCS: 36415; 71045; 71275; 80048; 80053; 83735; 84443; 84484; 85025; 85027; 93005; 93306; 99285; J0616; J1163; J7120; Q9957; Q9967

== ENCOUNTER → 2025-05-08 19:40 | Outpatient (BNV) | payer OTHER, SELFPAY | PROVIDERS: Emergency Provider Student in an Organized Health Care Education/Training Program; PCP Nurse Practitioner Family; Visit Provider Radiology Neuroradiology | DX: R06.02 Shortness of breath (principal) | CPT/HCPCS: 71045; 71275 ==

== ENCOUNTER → 2025-05-08 20:08 | Outpatient (BNV) | payer OTHER, SELFPAY | PROVIDERS: Emergency Provider Student in an Organized Health Care Education/Training Program; PCP Nurse Practitioner Family; Visit Provider Student in an Organized Health Care Education/Training Program | DX: I48.91 Unspecified atrial fibrillation (principal) | CPT/HCPCS: 99222; 99239 ==

== ENCOUNTER 2025-05-08 22:30 | Outpatient (BNV) | payer OTHER, SELFPAY | END 2025-05-09 07:00 | PROVIDERS: Admitting Provider Student in an Organized Health Care Education/Training Program; Emergency Provider Student in an Organized Health Care Education/Training Program; PCP Nurse Practitioner Family; Visit Provider Internal Medicine Cardiovascular Disease | DX: R00.1 Bradycardia, unspecified (principal) | CPT/HCPCS: 93010 ==

== ENCOUNTER → 2025-05-08 22:30 | Outpatient (BNV) | payer OTHER, SELFPAY | PROVIDERS: Admitting Provider Student in an Organized Health Care Education/Training Program; Emergency Provider Student in an Organized Health Care Education/Training Program; PCP Nurse Practitioner Family; Visit Provider Internal Medicine Cardiovascular Disease | DX: I48.0 Paroxysmal atrial fibrillation (principal); R07.89 Other chest pain | CPT/HCPCS: 99233 ==

== ENCOUNTER → 2025-06-04 08:37 | Outpatient (REF) | payer OTHER, SELFPAY ==
--- NOTE | 2025-06-04 08:40 | CA_ITS ---
Acquisition Time: 2025-06-04 08:50:30 Total Exercise Time: 00:10:40 Test Indications: Abnormal ECG AFIB Medications: FLECAINIDE METOPROLOL ELIQUIS IRBESARTAN Protocol: RIKKI Max HR: 169 BPM 91% of Pred: 185 BPM Max BP: 200/100 mmHG Max Work Load: 12.8 METS Exercise stress test with exercise 10 mins 40 secs of Rikki Protocol, achieving 92% MPHR, with reports of 5/10 mid chest pressure and SOB, with isolated PVCs, with hypertensive response to exercise - max BP 200/100. With ST depression inferiorly and in leads V3-V6 suggestive of ischemia. In recovery, pt's chest heaviness gradually improved and breathing returned to baseline. ST segment improving. Echo images obtained by tech at rest and post peak exercise. Definity contrast utilized. Test reviewed with Dr. Howard. Referred By: Puneet Parker Electronically Signed By: Barry Yousif
--- OUTSIDE RECORDS SUMMARY | 2025-06-04 09:58 | XMS_ITS | Clinical Summary ---
Author Organization [facility] Address [address] [place] [address] Care Team Providers Care Personnel Analyst Name Role Phone Unknown Primary Care Provider [phone] Social History Tobacco Use Types Packs/Day Years [...] of 3 - 19+ 3-dose series) 2009 HPV Vaccines (1 - 3-dose SCD M series) 2017 Influenza Vaccine 04/18/2025 COVID-19 Vaccine ( - 2023-2 5 season) 2025 Pneumococcal Vaccine: Pediat tsering (0-5 Years) and At-Risk Patients (6 to 49 Years) Aged Out No longer eligible b ased on patient's age to complete this topic Insurance [facility] Care Teams Personnel Analyst Relationship Specialty Start Date End Date Unknown Unknow Provider Address PCP - General 08/23/21
== END ==
LOC: HO.CARD 08:37
PROVIDERS: PCP Nurse Practitioner Family; Visit Provider Internal Medicine Cardiovascular Disease
DX: I48.0 Paroxysmal atrial fibrillation (principal); R07.89 Other chest pain; R94.31 Abnormal electrocardiogram [ECG] [EKG]
CPT/HCPCS: 93350; Q9957

== ENCOUNTER → 2025-06-04 08:40 | Outpatient (BNV) | payer OTHER, SELFPAY | PROVIDERS: PCP Nurse Practitioner Family | DX: I49.3 Ventricular premature depolarization (principal); R07.89 Other chest pain; R06.02 Shortness of breath | CPT/HCPCS: 93016; 93018; 93350; 93352 ==

== ENCOUNTER 2025-06-05 08:54 | Outpatient (AMB) | payer OTHER, SELFPAY ==
--- NOTE | 2025-06-05 08:56 | MHC.PC.OV ---
Vital Signs 06/05/25 08:57 Height 5 ft 11 in Weight 198 lb BMI 27.6 BP 120/78 Blood Pressure Location Rt brachial Position Sitting Pulse 68 Pulse Source Pulse Oximeter Temp 98.1 F Temp Source Oral Pulse Oximetry (%) 98 Intake Visit Reasons: TCM Endocrinology Specialist Required: No Accompanied by: Self / Same As Patient Allergies No Known Allergies Allergy (Verified 06/05/25 08:57) Tobacco use date assessed: 01/21/25 Dental Screening Dental Screen Date: 01/21/25 HPI TCM TCM Information Date of Discharge 05/10/25 Discharged From [facility] Interactive Contact Date (Reference documentation from this date) 05/12/25 HPI Comments History of Present Illness Details History of Present Illness - The patient is a 35-year-old male presenting with a hospital discharge follow-up after new onset of atrial fibrillation with rapid ventricular response. - He has a history of hypertension and hyperlipidemia, and low back pain status post lumbar microdiscectomy. - On May 08, he experienced sudden onset heart palpitations, leading to an emergency department visit where he was diagnosed with atrial fibrillation with rapid ventricular response. - He was treated with a diltiazem drip and flecainide, converting him back to sinus rhythm, and discharged on Eliquis, flecainide, and metoprolol. - An echocardiogram showed an ejection fraction of 50% with no other abnormalities. - The patient reports no family history of atrial fibrillation and has been reducing alcohol consumption over the past two years. - Since discharge, he has been feeling slight pressure in his left chest, but no chest pain, feeling of heart palpitations, shortness of breath, dizziness or lightheadedness. - He had a stress test at [facility] yesterday. - He has follow up with [facility] Cardiology on 06/10 General: Cooperative, healthy appearing, comfortable, no acute distress and well developed Orientation: Patient oriented x3 Limitations: No limitations Head: Normal to inspection Ears: Hearing grossly normal bilaterally Nose: Normal External nose present Face and sinus: Normal facial exam Eyes: Appearance normal, both eyes and all related structures Neck: Normal visual inspection and Yes full ROM Respiratory: Normal respiratory effort and able to speak in complete sentences. Clear to auscultation throughout, no wheezes, rales and rhonchi. Cardiac: Regular rate and rhythm, Normal S1 and S2, no murmurs, rubs or gallops Skin: No rashes or lesions noted Neuro: Patient oriented x3, gait normal Extremities: Normal to inspection Review of Systems - Cardiovascular: Reports slight pressure pain, denies chest pain, orthopnea, or syncope. - General: Denies dizziness, shortness of breath, or feeling like passing out. All systems reviewed and are unremarkable except as noted in HPI and below PFSH Medical History Hypertension Atrial fibrillation with RVR FHx: atrial fibrillation Nerve root compression Lumbar back pain with radiculopathy affecting lower extremity Surgical History No pertinent past surgical history Family History Father No problems noted. Mother No problems noted. Paternal Grandmother Cancer Heart attack Social History Household Members: Friend(s) Housing: Other Housing Other:: [facility] Do you presently have visiting nurse or other home services: No Alcohol intake: current Alcohol intake frequency: holidays/special occasions only Patient Tobacco Use Status: Current everyday Tobacco user Cigarette Packs Per Day: 0.25 Years Smoked: quit 2 weeks ago e-Cigarette/Vaping Use: Currently Using Second Hand Smoke Exposure: No service: Yes Current occupational status: employed Current occupation: [employer] Current occupational exposures/hazards: Yes Cognitive needs: No Hearing needs: No Vision needs: No Questionnaire Thrive Questionnaire Date Thrive assessed: 05/09/25 I am a: Patient What is your living situation today?: I have a steady place to live Within the past 12 months, did the food you bought not last and you didn't have the money to get more?: Never true Within the past 12 months, did you worry whether your food would run out before you got money to buy more?: Never true Do you have trouble paying for medicines?: No Do you have trouble getting transportation to medical appointments?: No Do you have trouble paying your heating and electricity bill?: No Do you have trouble taking care of your child, family member or friend?: No Do you have trouble with day-to-day activities such as bathing, preparing meals, shopping, managing finances, etc.?: No Are you currently unemployed and looking for a job?: No Are you interested in more education?: No Please select the resources that you would like help with: None Currently or been in a relationship where the following occur: No concerns reported THRIVE Score: 0 VERONICA-7 AMB Questionnaire VERONICA-7 Date VERONICA - 7 assessed: 01/21/25 Source: Developed by Drs. Nacho Briggs, Catrachita Hilliard, Donn Stern and colleagues, with an educational jasen from [employer]. Physical exam (Primary Care) Vital Signs: Last Vital Signs Temp 98.1 F 06/05/25 08:57 Pulse 68 06/05/25 08:57 BP 120/78 06/05/25 08:57 Pulse Ox 98 06/05/25 08:57 BMI result Body Mass Index 27.6 Tobacco/Smoking Status: Tobacco use Status Tobacco use date assessed 01/21/25 06/05/25 08:59 Patient Tobacco Use Status Current everyday Tobacco 06/05/25 08:59 e-Cigarette/Vaping Use Currently Using 06/05/25 08:59 Thrive Assessment: Date of Thrive Assessment Date Thrive assessed 05/09/25 06/05/25 08:59 Currently or been in a relationship where the following occur: No concerns reported Coding Level of Care Code TCM Mod MDM <= 14 Days Diagnoses Paroxysmal atrial fibrillation I48.0 Assessment & Plan Assessment & Plan (1) Paroxysmal atrial fibrillation: Code(s): I48.0 - Paroxysmal atrial fibrillation Category: Medical Plan: Assessment and Plan 1. Atrial fibrillation with rapid ventricular response - The patient was treated with diltiazem and flecainide, converting to sinus rhythm. - He is currently on Eliquis, flecainide, and metoprolol. - Follow-up with cardiology is scheduled on 06/10 for further evaluation and management as well as stress test results. 2. Hypertension - Continue current antihypertensive regimen and monitor blood pressure regularly. 3. Hyperlipidemia - Continue current lipid-lowering therapy and monitor lipid profile. Patient was informed and verbally consented to the use of an ambient scribe for clinic note documentation during this visit.
[2025-06-05 08:57] VITALS: BP 120/78; PULSE 68; TEMP 36.7; O2SAT 98; BMI 27.6
--- OUTSIDE RECORDS SUMMARY | 2025-06-05 10:11 | XMS_ITS | Clinical Summary ---
Author Organization [facility] Address [address] [place] [address] Care Team Providers Care First Beater Name Role Phone Unknown Primary Care Provider [...] patient's age to complete this topic Insurance [facility] Care Teams First Beater Relationship Specialty Start Date End Date Unknown Unknow Provider Address PCP - General 08/23/21
== END 2025-06-05 10:13 | disposition home or self-care (01) ==
LOC: HO.HMCC 08:55
PROVIDERS: PCP Nurse Practitioner Family; Visit Provider Physician Assistant
DX: I48.0 Paroxysmal atrial fibrillation (principal)

== ENCOUNTER → 2025-06-05 08:54 | Outpatient (BNVA) | payer OTHER, SELFPAY | PROVIDERS: PCP Nurse Practitioner Family; Visit Provider Physician Assistant | DX: I48.0 Paroxysmal atrial fibrillation (principal); R00.2 Palpitations; I10 Essential (primary) hypertension; E78.5 Hyperlipidemia, unspecified | CPT/HCPCS: 99212 ==

== ENCOUNTER 2025-06-10 13:04 | Outpatient (AMB) | payer OTHER, SELFPAY ==
--- NOTE | 2025-06-10 13:17 | MHC.OFFVIS ---
Vital Signs 06/10/25 13:18 Height 5 ft 11 in Weight 194 lb 0.108 oz BMI 27.1 BP 120/80 Blood Pressure Location Lt brachial Position Sitting Pulse 69 Pulse Source Monitor Intake Visit [place]asons[place] [facility] [place] Allergies No Known Allergies Allergy (Verified 06/05/25 08:57) Medication List - Last Reconciled 06/10/25 by Melanie Bourgeois, [employer] ATTENDANT-C apixaban (Eliquis) 5 mg PO BID flecainide 100 mg (2 x 50 mg) PO BID irbesartan 150 mg PO DAILY 90 days metoprolol succinate ER 25 mg See Protocol PO DAILY HPI HPI [facility] [place]: Details: Brad is a 35-year-old male past medical history of hypertension [place] [facility] [place] and found to have AFib RVR. He was treated flecainide x2 doses and converted to normal sinus rhythm. He was discharged with flecainide, metoprolol and Eliquis. An outpatient stress echocardiogram showed no echo evidence of ischemia. He now presents for follow-up. Today he reports he has been doing well since his hospital discharge. He has not had any recurrent heart palpitations. He says he has been very conscious of his heart and it has been pumping steady. He has no chest discomfort at rest or with activity. He denies having shortness of breath but does report some recent new fatigue. No PND, orthopnea or edema. Taking meds as directed. No bleeding issues reported. He expresses concern about long-term medication use. He drinks 1 energy drink per week. [facility] Medical History Hypertension Atrial fibrillation with RVR FHx: atrial fibrillation Nerve root compression Lumbar back pain with radiculopathy affecting lower extremity Surgical History No pertinent past surgical history Family History Father No problems noted. Mother No problems noted. Paternal Grandmother Cancer Heart attack Social History Household Members: Friend(s) Housing: Other Housing Other:: [facility] Do you presently have visiting nurse or other home services: No Alcohol intake: current Alcohol intake frequency: holidays/special occasions only Patient Tobacco Use Status: Current everyday Tobacco user Cigarette Packs Per Day: 0.25 Years Smoked: quit 2 weeks ago e-Cigarette/Vaping Use: Currently Using Second Hand Smoke Exposure: No service: Yes Current occupational status: employed Current occupation: [employer] Current occupational exposures/hazards: Yes Cognitive needs: No Hearing needs: No Vision needs: No Review of Systems Const All systems reviewed & are unremarkable except as noted in HPI and below Reports fatigue and Denies weakness ENT Denies dizziness Card Denies chest pain, Denies chest pain at rest, Denies chest pain with activity, Denies syncope, Denies rapid heart rate, Denies pedal edema, Denies edema, Denies leg edema, Denies lightheadedness, Denies palpitations, Denies dyspnea, Denies dyspnea on exertion and Denies orthopnea Resp Denies cough, Denies dyspnea and Denies dyspnea on exertion GI Denies hematochezia and Denies change in stool character Musc Denies abnormal gait, Denies muscle cramps, Denies muscle weakness, Denies numbness, Denies radiating pain into limb and Denies tingling Neuro Denies abnormal gait, Denies dizziness, Denies syncope, Denies numbness, Denies tingling and Denies weakness Endo Reports fatigue and Denies palpitations Physical Exam Vital Signs: Last Vital Signs Pulse 69 06/10/25 13:18 BP 120/80 06/10/25 13:18 BMI result Body Mass Index 27.1 Const General: cooperative, healthy appearing, comfortable and no acute distress Orientation/consciousness: patient oriented x3 Neck Neck: Yes normal visual inspection Resp Effort & Inspection: normal respiratory effort Auscultation: clear to auscultation bilaterally, no crackles, no rales, no rhonchi and no wheezes Cardio Rate: regular rate Rhythm: regular rhythm Heart sounds: S1 normal heart sound present, S2 normal heart sound present, no gallops, no murmurs and no rubs Neuro General: patient oriented x3 Extrem General: Yes normal to inspection, No no pedal edema and No calf tenderness Psych Appearance: grossly normal Mental Status: mental status grossly normal Speech and movement: Normal speech and movement present Office Procedures EKG Details: Today, read by me, normal sinus rhythm, T-wave abnormality inferior lateral leads, rate 69, QTC 417 milliseconds. When compared to prior EKG, T-wave abnormalities seen there as well however in laterally leads primarily. [id number], Complete Assessment & Plan Assessment & Plan (1) Paroxysmal atrial fibrillation: Code(s): I48.0 - Paroxysmal atrial fibrillation Category: Medical Plan: New finding of atrial fibrillation with RVR which converted with use of flecainide. Echocardiogram 05/09/2025 showed EF 50-55%, normal valves, mildly dilated left atrium. He was able to clearly feel heart palpitations with AF. He has not had recurrent episodes. EKG done today showing sinus rhythm, rate 69. He is on flecainide 100 mg b.i.d., metoprolol XL 25 mg daily for rhythm and rate control. He is on Eliquis for anticoagulation. CHADS-VASc score of 1 with hypertension. Diagnosis of atrial fibrillation, stroke risk and treatment plan reviewed with him. At this time we will continue to pursue rhythm control. No medication changes made. Reviewed avoidance of caffeine/energy drinks. Continue physical activity as tolerated. He is asking about future ablation and coming off medications. Will arrange for follow-up with Dr. Parker in 4 months, sooner if needed. (2) Hypertension: Code(s): I10 - Essential (primary) hypertension Category: Medical Plan: Blood pressure goal less than 130/80. Well controlled at this time. Continue metoprolol and irbesartan. (3) Abnormal EKG: Code(s): R94.31 - Abnormal electrocardiogram [ECG] [EKG] Category: Medical Plan: EKGs reviewed. He does have T-wave inversions in the lateral leads on prior EKGs. At time of AFib RVR his troponin levels were normal range. Low cardiac risk profile. Echocardiogram shows normal LV wall thickness. EKG done today continues to show T-wave abnormalities, currently inferolateral leads, asymptomatic. No med changes made at this time. (4) Hospital discharge follow-up: Code(s): Z09 - Encounter for follow-up examination after completed treatment for conditions other than malignant neoplasm Category: Medical Plan: Hospital records reviewed Plan Time spent on chart review, documentation, interview and assessment Coding Level of Care Code Est Pt Level 4 (56667) Complex EM visit Add On G2211 Diagnoses Paroxysmal atrial fibrillation I48.0 Hypertension I10 Abnormal EKG R94.31 Hospital discharge follow-up Z09 CPT Codes EKG - CPT: 63202-[id number], Complete ([id number]) Time Spent (min) 32
[2025-06-10 13:18] VITALS: BP 120/80; PULSE 69; BMI 27.1
--- OUTSIDE RECORDS SUMMARY | 2025-06-10 16:02 | XMS_ITS | Clinical Summary ---
Author Organization [facility] Address [address] [place] [address] Care Team Providers Care Quality Cloth Tester Name Role Phone Unknown Primary Care Provider [phone] Social History Tobacco Use Types Packs/Day Years [...] patient's age to complete this topic Insurance [employer] Care Teams Quality Cloth Tester Relationship Specialty Start Date End Date Unknown Unknow Provider Address PCP - General 08/23/21
== END 2025-06-10 13:51 | disposition home or self-care (01) ==
LOC: HO.HCS 13:05
PROVIDERS: PCP Nurse Practitioner Family; Visit Provider Nurse Practitioner Family
DX: I48.0 Paroxysmal atrial fibrillation (principal); I10 Essential (primary) hypertension; R94.31 Abnormal electrocardiogram [ECG] [EKG]; Z09 Encounter for follow-up examination after completed treatment for conditions other than malignant neoplasm
CPT/HCPCS: 93010; 99214; G2211

== ENCOUNTER → 2025-06-10 13:04 | Outpatient (BNVA) | payer OTHER, SELFPAY | PROVIDERS: PCP Nurse Practitioner Family; Visit Provider Nurse Practitioner Family | DX: Z09 Encounter for follow-up examination after completed treatment for conditions other than malignant neoplasm (principal); I48.0 Paroxysmal atrial fibrillation; I10 Essential (primary) hypertension; R94.31 Abnormal electrocardiogram [ECG] [EKG] | CPT/HCPCS: 93005; 99212 ==